=== PATIENT | male | born 1950 | race Hispanic/Latino ===

== ENCOUNTER 2019-01-28 08:29 | Inpatient (IN) | payer MEDICARE, OTHER ==
[2019-01-28 09:22] LABS: #Basophils 0.1 thou/uL (0.0-0.2); #Lymphocytes 2.3 thou/uL (1.20-3.40); #Monocytes 0.7 thou/uL (0.11-0.59); #Neutrophils 6.4 thou/uL (1.40-6.50); %Basophils 0.9 % (0.0-1.0); %Eosinophils 17.7 % (0.0-10.0); %Lymphocytes 19.8 % (21.0-51.0); %Monocytes 6.2 % (0.0-10.0); %Neutrophils 55.5 % (42.0-75.0); Hemoglobin 11.5 g/dL (14.0-18.0); Mean Corpuscular HGB CONC 33.5 g/dL (32.0-36.0); Mean Corpuscular Hemoglobin 29.9 pg (27.0-31.0); Mean Corpuscular Volume 89.1 fL (78.0-98.0); Mean Platelet Volume 6.9 fL (7.4-10.4); Platelet Count 358 thou/uL (130-400); RBC Distribution Width 12.4 % (11.5-14.5); Red Blood Cell (RBC) Count 3.85 mill/uL (4.70-6.10); White Blood Cell (WBC) Count 11.5 thou/uL (4.8-10.8)
[2019-01-28 09:41] LABS: ALT (SGPT) 44 U/L (8-55); AST (SGOT) 30 U/L (5-34); Albumin 3.9 g/dL (3.4-4.8); Alkaline Phosphatase 104 U/L (40-150); Anion Gap 15 mmol/L (10-20); BUN (Urea Nitrogen) 44 mg/dL (8.4-25.7); Bilirubin, Total 0.4 mg/dL (0.2-1.2); Calc. Creatinine Clearance 0 mL/min (70-130); Calcium 9.3 mg/dL (7.8-10.44); Carbon Dioxide 21 mmol/L (23-31); Chloride 108 mmol/L (98-107); Estimated GFR-MDRD 11; Globulin 3.8 g/dL (2.4-3.5); Glucose 148 mg/dL (80-115); Protein, Total 7.7 g/dL (5.8-8.1); Sodium 139 mmol/L (136-145)
--- NOTE | 2019-01-28 10:18 | PDOC.FPRHP ---
- History of Present Illness Chief Complaint: dialysis History of Present Illness: 68 yo M with CKD, HTN, DM2 was sent to ED for HD. Pt and family report that they were seen 1 week ago and instructed to f/u for HD arrangements. They never did and today pt started exeriencing SOB, difficulty walking, lower extremity edema. Pt is still making urine frequently with assistance of lasix. Patient also reports nausea and morning emesis over the last few months. He has been weak and endorses intermittent chest pain, although patient denies pain currently. Patient was seen for routine visit by head worker, Dr. Hernandez and sent over to ED for HD. ED Course: Ssis Architect, Dr. Hernandez was consulted and recommended admitting to proceed with getting set up for HD. - Allergies/Adverse Reactions Allergies Allergy/AdvReac Type Severity Reaction Status Date / Time No Known Drug Allergies Allergy Verified 01/28/19 16:10 - Home Medications Medication Instructions Recorded Confirmed Type Aspirin [Aspir 81] 81 mg PO DAILY 04/07/13 01/28/19 History Amlodipine [Norvasc] 10 mg PO DAILY 01/28/19 01/28/19 History Calcitriol 0.25 mcg PO DAILY 01/28/19 01/28/19 History Carvedilol 1 tab PO BID 01/28/19 01/28/19 History Furosemide 1 tab PO BID 01/28/19 01/28/19 History Insulin Glargine,Hum.Rec.Anlog 25 units SQ BID 01/28/19 01/28/19 History [Lantus] Nitroglycerin [Nitrostat] 0.3 mg SL Q5MIN PRN 01/28/19 01/28/19 History Simvastatin [Zocor] 1 tab PO HS 01/28/19 01/28/19 History Terazosin HCl [Hytrin] 2 mg PO HS 01/28/19 01/28/19 History cloNIDine [Catapres] 0.2 mg PO BID 01/28/19 01/28/19 History - History PMHx: HTN, DM type II PSHx: Cholecystectomy FHx: Mother with stomach cancer Social: Denies alcohol, tobacco, or drug use - Review of Systems General: denies: fever/chills, weight/appetite/sleep changes, night sweats Eyes: denies: vision changes ENT: denies: nasal congestion, rhinorrhea Respiratory: reports: shortness of breath Cardiovascular: reports: edema, orthopnea Gastrointestinal: denies: nausea, vomiting, diarrhea, GI bleeding Genitourinary: denies: incontinence, dysuria Skin: denies: rashes, lesions Musculoskeletal: denies: pain, tenderness Neurological: reports: weakness. denies: numbness, syncope Psychological: denies: anxiety, depression - Vital signs 210/105, Pulse: 72, Resp: 16, Pain: 0, O2 sat: 98 on Room Air, Time: 01/28/2019 08:58. - Physical Exam Constitutional: NAD, awake, alert and oriented HEENT: EOMI, MMM Heart: RRR, no murmurs/rubs/gallops Lungs: CTAB -Lungs: bibasilar rales Abdomen: soft -Abdomen: Mildly tender in RUQ and LUQ. -Musculoskeletal: Shaking on exam Neurological: no focal deficit Skin: good turgor Heme/Lymphatic: no unusual bruising or bleeding, no purpura Psychiatric: normal mood and affect, good judgment and insight, intact recent and remote memory FMR H&P: Results - Labs Result Diagrams: 01/28/19 09:25 01/28/19 09:06 Lab results: WBC 11.5 thou/uL (4.8-10.8) H 01/28/19 09:25 Hgb 11.5 g/dL (14.0-18.0) L 01/28/19 09:25 Hct 34.3 % (42.0-52.0) L 01/28/19 09:25 MCV 89.1 fL (78.0-98.0) 01/28/19 09:25 Plt Count 358 thou/uL (130-400) 01/28/19 09:25 Neutrophils % 55.5 % (42.0-75.0) 01/28/19 09:25 Sodium 139 mmol/L (136-145) 01/28/19 09:06 Potassium 5.0 mmol/L (3.5-5.1) 01/28/19 09:06 Chloride 108 mmol/L (98-107) H 01/28/19 09:06 Carbon Dioxide 21 mmol/L (23-31) L 01/28/19 09:06 BUN 44 mg/dL (8.4-25.7) H 01/28/19 09:06 Creatinine 5.37 mg/dL (0.7-1.3) H 01/28/19 09:06 Glucose 148 mg/dL (80-115) H 01/28/19 09:06 Calcium 9.3 mg/dL (7.8-10.44) 01/28/19 09:06 Total Bilirubin 0.4 mg/dL (0.2-1.2) 01/28/19 09:06 AST 30 U/L (5-34) 01/28/19 09:06 ALT 44 U/L (8-55) 01/28/19 09:06 Alkaline Phosphatase 104 U/L (40-150) 01/28/19 09:06 Serum Total Protein 7.7 g/dL (5.8-8.1) 01/28/19 09:06 Albumin 3.9 g/dL (3.4-4.8) 01/28/19 09:06 FMR H&P: A/P - Problem List (1) Acute kidney injury superimposed on CKD Current Visit: Yes Status: Acute Code(s): N17.9 - ACUTE KIDNEY FAILURE, UNSPECIFIED; N18.9 - CHRONIC KIDNEY DISEASE, UNSPECIFIED (2) ESRD (end stage renal disease) Current Visit: Yes Status: Acute Code(s): N18.6 - END STAGE RENAL DISEASE - Plan 68 year old male presents with ESRD, here to initiate HD 1. ESRD, here to initiate HD - GFR 11 - Sent over from Dr. Hernandez's office - Dr. Horton consulted for dialysis access - Lasix for fluid overload pending dialysis - Plan for dialysis once there is access - K 5, continue to monitor - Daily BMP's - Electrolytes WNL - Phos and Mg pending - Daily weights - Strict I&O's 2. HTN - Elevated BP - Will likely improve with HD - Restart home medications 3. DM type II - Continue home meds - Hyperglycemia protocol 4. Mild leukocytosis - WBC 11.5 - Procal negative Dispo: Admit to telemetry. Obtain access for dialysis and diurese. FMR H&P: Upper Level - Plan Date/Time: 01/28/19 1016 I, [], have evaluated this patient and agree with findings/plan as outlined by phd intern resident. Pertinent changes/additions are listed here. Addendum - Attending - Attending Attestation Date/Time: 01/28/192010 I personally evaluated the patient and discussed the management with Dr. Giles I agree with the History, Examination, Assessment and Plan documented above with any addition or exceptions noted below. 68 yo HTN Diabetic male with ESRD admitted for initiation of hemodialysis and BP control.
[2019-01-28] MEDS ORDERED: Dextrose 5% in Water 1,000 ML IV PRN (15:31)
[2019-01-28] MEDS ORDERED: Dextrose 50% Abboject 50 ML SYRINGE SLOW IVP PRN (15:31)
[2019-01-28] MEDS ORDERED: HumaLOG 300 UNITS/3 ML VIAL SC PRN ×2 (15:31)
[2019-01-28] MEDS ORDERED: Ondansetron ODT 4 MG TAB PO PRN (15:31)
[2019-01-28] MEDS ORDERED: Furosemide 40 MG/4 ML VIAL SLOW IVP SCH (15:45)
[2019-01-28 15:52] LABS: Magnesium 2.1 mg/dL (1.6-2.6); Phosphorus 5.2 mg/dL (2.3-4.7)
[2019-01-28 16:04] VITALS: BMI 26.3
[2019-01-28] MEDS ORDERED: Nitroglycerin 0.4 MG TAB (25 Tab Bottle) SL PRN (16:39)
[2019-01-28] MEDS ORDERED: Amlodipine 10 MG TAB PO SCH (16:45)
[2019-01-28] MEDS ORDERED: Tuberculin PPD 0.1 ML VIAL I-DERMAL SCH (17:00)
[2019-01-28] MEDS: cloNIDine 0.2 MG TAB PO SCH (17:55)
[2019-01-28] MEDS ORDERED: hydrALAZINE 20 MG/ML VIAL SLOW IVP PRN (18:04)
--- NOTE | 2019-01-28 19:18 | ULT ---
VEIN MAPPING OF UPPER EXTREMITIES FOR DIALYSIS ACCESS: Indication: Pre-operative planning evaluation. FINDINGS: The visualized internal jugular and subclavian veins appear patent. RIGHT UPPER EXTREMITY BRACHIAL ARTERY: 5.4 mm RADIAL ARTERY: 2.2 mm ULNAR ARTERY: 1.9 mm CEPHALIC VEIN Proximal Arm: 4.2 mm Mid Arm: 2.9 mm Distal Arm: 3.1 mm Antecubital Fossa: 3.2 mm Proximal Forearm: 1.9 mm Mid Forearm: 1.2 mm Distal Forearm: 1.1 mm BASILIC VEIN Proximal Arm: Not seen Mid Arm: 3.2 mm Distal Arm: 2.3 mm Antecubital Fossa: 2.7 mm Proximal Forearm: 1.3 mm Mid Forearm: 1.1 mm Distal Forearm: 0.9 mm LEFT UPPER EXTREMITY BRACHIAL ARTERY: 4.3 mm RADIAL ARTERY: 1.1 mm ULNAR ARTERY: 2.4 mm CEPHALIC VEIN Proximal Arm: 2.3 mm Mid Arm: 1.9 mm Distal Arm: 1.9 mm Antecubital Fossa: 2.5 mm Proximal Forearm: 1.1 mm Mid Forearm: 1.4 mm Distal Forearm: 1.3 mm BASILIC VEIN Proximal Arm: 1.8 mm Mid Arm: 2.4 mm Distal Arm: 1.4 mm Antecubital Fossa: 1.8 mm Proximal Forearm: 0.8 mm Mid Forearm: 0.7 mm Distal Forearm: 0.6 mm IMPRESSION: Pre dialysis access planning duplex exam as above. POS: IMANI
[2019-01-28 19:26] LABS: HBSAB Concentration 1.83 mIU/mL; HBSAg Index 0.29 S/CO (0-0.99); Hep B Core Total Ab Non-Reactive (NonReactive); Hep B Core Total Index 0.06 S/CO (0-0.79); Hep B Surf AB Non-Reactive (NonReactive); Hep B Surf Ag Non-Reactive S/CO (NonReactive); Hep C IgG Ab Non-Reactive (NonReactive); Hep C Index 0.55 S/CO (0-0.79)
[2019-01-28] MEDS: Losartan 25 MG TAB PO SCH (20:29)
[2019-01-28] MEDS: Carvedilol 6.25 MG TAB PO SCH (20:29)
[2019-01-28] MEDS: Furosemide 40 MG TAB PO SCH (20:29)
[2019-01-28] MEDS: Atorvastatin Calcium 10 MG TAB PO SCH (20:30)
[2019-01-28] MEDS ORDERED: Insulin Glargine 25 UNITS in Pre-Filled Syringe 1 EACH SC SCH (21:00)
[2019-01-28] MEDS: Terazosin HCl 1 MG CAP PO SCH (21:18)
--- NOTE | 2019-01-28 23:52 | CON ---
DATE OF CONSULTATION: HISTORY OF PRESENT ILLNESS: Mr. Colon is a 68-year-old male, who was admitted for initiation of hemodialysis. He has been progressively had worsening renal function as well as development of early uremia. He was seen in the clinic back on January 21, 2019, I did tell him at that time, his GFR has dropped down to a mL per minute. He has agreed to be admitted for initiation of dialysis. REVIEW OF SYSTEMS: No chest pain. Decreased appetite, occasional nausea. No vomiting. No tremors. No syncopal episode. No productive cough. No abdominal pain. No fever or chills. Occasional shortness of breath. Positive for chronic leg edema. No diarrhea, no constipation. No gross hematuria, no dysuria. No hematochezia, no melena. HOME MEDICATIONS: Includes: 1. Calcitriol 0.25 mcg daily. 2. Lasix 40 mg tablet once daily. 3. Insulin 25 units subcu b.i.d. 4. Prozac 20 mg at bedtime. 5. Aspirin 81 mg daily. 6. Terazosin 1 mg two capsules at bedtime. 7. Clonidine 0.2 mg two tablets b.i.d. 8. Coreg 12.5 mg b.i.d. 9. Amlodipine 10 mg tablet once daily. PAST MEDICAL HISTORY: 1. Chronic renal failure from diabetic nephropathy. 2. Type 2 diabetes mellitus. 3. Hypertension. 4. Secondary hyperparathyroidism. 5. Depression. 6. ? Chronic leg edema. PAST SURGICAL HISTORY: 1. Status post laparoscopic cholecystectomy. Status post cholangiogram. 2. Status post upper GI endoscopy. SOCIAL HISTORY: The patient lives in [place], originally from [place]. He has 5 children. No history of smoking, no alcohol intake. Education, 3rd grade in [place]. No IV drug abuse. He is a retired construction administrator. No blood transfusion. ALLERGIES: NONE. TRAUMA: None. IMMUNIZATION: Up-to-date. HOSPITALIZATIONS: Please see past medical history. FAMILY HISTORY: No family history of ESRD. PHYSICAL EXAMINATION: VITAL SIGNS: Blood pressure is 207/100, heart rate 74, respiratory rate 18, temperature 98.1, and pulse ox 98 percent. GENERAL: Awake, alert, comfortable, not in overt distress. SKIN: Adequate turgor. HEENT: He has pinkish conjunctivae. Anicteric sclerae. NECK: No neck mass. No carotid bruits. No JVD. CHEST: No deformities. LUNGS: Clear breath sounds. No wheezing. No crackles. HEART: Normal sinus rhythm. No murmur, no gallops, no rubs. ABDOMEN: Globular, soft, nontender. No masses. EXTREMITIES: Positive for edema. No deformities. NEUROLOGICAL: Awake, oriented to 3 spheres. Moving all extremities. No tremors. No asterixis. No ataxia. LABORATORY DATA: From January 28, 2019; white count 11.5, hemoglobin 11.5. Sodium 139, potassium 5, chloride 108, carbon dioxide 21, BUN 44, creatinine 5.37, glucose 140, calcium 9.3, phosphorus 5.2, albumin 3.9. Procalcitonin 0.1. ASSESSMENT AND PLAN: 1. Chronic renal failure from diabetic nephropathy. Renal function has worsen over time. Most recent glomerular filtration rate is at 11 mL/minute. The patient agreed for initiation of dialysis. My plan is to consult surgery for placement of a cuffed hemodialysis catheter as well as an arteriovenous fistula. The patient has declined peritoneal dialysis. We had in the past a long discussion of renal transplantation. At the moment, they are not interested due to logistics. 2. Hypertension-review of the blood pressure medications has been made. My bias due to his hard to control blood pressure is to initiate losartan with this patient at 50 mg tablet daily at bedtime. 3. I agree with current management. Consult surgery for placement of dialysis catheter. Case management consult for outpatient dialysis. Job ID: [id number]
[2019-01-29 05:01] LABS: #Basophils 0.1 thou/uL (0.0-0.2); #Eosinphils 1.8 thou/uL (0.0-0.7); #Lymphocytes 1.9 thou/uL (1.20-3.40); #Monocytes 0.6 thou/uL (0.11-0.59); #Neutrophils 3.9 thou/uL (1.40-6.50); %Basophils 0.8 % (0.0-1.0); %Eosinophils 21.6 % (0.0-10.0); %Lymphocytes 23.2 % (21.0-51.0); %Monocytes 7.3 % (0.0-10.0); %Neutrophils 47.1 % (42.0-75.0); Hemoglobin 9.7 g/dL (14.0-18.0); Mean Corpuscular HGB CONC 33.6 g/dL (32.0-36.0); Mean Corpuscular Hemoglobin 29.8 pg (27.0-31.0); Mean Corpuscular Volume 88.7 fL (78.0-98.0); Mean Platelet Volume 6.9 fL (7.4-10.4); Platelet Count 298 thou/uL (130-400); RBC Distribution Width 12.3 % (11.5-14.5); Red Blood Cell (RBC) Count 3.24 mill/uL (4.70-6.10); White Blood Cell (WBC) Count 8.3 thou/uL (4.8-10.8)
--- NOTE | 2019-01-29 05:10 | PDOC.FM ---
- Subjective Subjective: Patient states he is doing ok this AM. No significant overnight events. Patient eating peanut butter and crackers due to BG in the 50's. He denies any chest pain or shortness of breath. He states he has not gone for dialysis yet. - Objective MAR Reviewed: Yes Vital Signs & Weight: Vital Signs (12 hours) Temp Pulse Resp BP BP Pulse Ox 01/29/19 04:00 98.4 F 57 L 18 142/82 H 94 L 01/28/19 20:29 188/91 H 01/28/19 19:35 98.9 F 77 16 188/91 H 95 01/28/19 17:51 70 181/82 H Weight Weight 71.849 kg I&O: 01/27/19 01/28/19 01/29/19 06:59 06:59 06:59 Intake Total 240 Output Total 400 Balance -160 Result Diagrams: 01/29/19 04:48 01/29/19 04:48 EKG Reviewed by me: Yes Radiology Reviewed by me: Yes Phys Exam - Physical Examination Constitutional: NAD HEENT: moist MMs Course breath sounds anteriorly Cardiovascular: RRR, no significant murmur Gastrointestinal: soft, non-tender, no distention, positive bowel sounds ( Hyperactive) Musculoskeletal: pulses present 3+ pitting edema Neurological: non-focal, moves all 4 limbs Psychiatric: normal affect, A&O x 3 Skin: no rash, cap refill <2 seconds Dx/Plan (1) Acute kidney injury superimposed on CKD Code(s): N17.9 - ACUTE KIDNEY FAILURE, UNSPECIFIED; N18.9 - CHRONIC KIDNEY DISEASE, UNSPECIFIED Status: Acute (2) ESRD (end stage renal disease) Code(s): N18.6 - END STAGE RENAL DISEASE Status: Acute (3) HTN (hypertension) Code(s): I10 - ESSENTIAL (PRIMARY) HYPERTENSION Status: Acute (4) Diabetes mellitus, type II Status: Acute - Plan Plan: 68 year old male presents with ESRD, here to initiate HD 1. ESRD 2/2 diabetic nephropathy, here to initiate HD - GFR 11 - Sent over from Dr. Hernandez's office - Dr. Horton consulted for dialysis access - Lasix for fluid overload pending dialysis - Plan for dialysis once there is access - Electrolytes WNL - Daily BMP's - Phos high at 5.2, Mg WNL - Daily weights - Strict I&O's; output 1.2 L - Hepatitis panel negative 2. HTN - Elevated BP - Will likely improve with HD - Continue home medications - Hydralazine PRN SBP >180 3. DM type II - Continue home meds - Hyperglycemia protocol - Episode of hypoglycemia this AM; improved with peanut butter and crackers 4. Mild leukocytosis - WBC 11.5 - Procal negative - CBC improved this AM 5. Normocytic anemia - 11 -> 9.7 - Likely 2/2 ESRD - May need erythropoetin; will defer to nephro - Continue to monitor Dispo: Stable. Pending access for dialysis. Addendum - Attending - Attending Attestation Date/Time: 01/29/19 1003 I personally evaluated the patient and discussed the management with Dr. Giles I agree with the History, Examination, Assessment and Plan documented above with any addition or exceptions noted below. Patient up at bedside anticipating access surgery today NPO status note hypogylcemia episode will need basal insulin dose adjustments.
[2019-01-29 05:13] LABS: Anion Gap 12 mmol/L (10-20); BUN (Urea Nitrogen) 46 mg/dL (8.4-25.7); Calc. Creatinine Clearance 14 mL/min (70-130); Calcium 8.6 mg/dL (7.8-10.44); Carbon Dioxide 23 mmol/L (23-31); Chloride 108 mmol/L (98-107); Estimated GFR-MDRD 11; Potassium 4.2 mmol/L (3.5-5.1); Sodium 139 mmol/L (136-145)
[2019-01-29 05:18] LABS: Glucose 59 mg/dL (80-115)
[2019-01-29] MEDS: Aspirin 81 mg Enteric Coated Tablet PO SCH (09:57)
[2019-01-29] MEDS: Calcitriol 0.25 MCG CAP PO SCH (09:57)
[2019-01-29] MEDS: Carvedilol 6.25 MG TAB PO SCH ×2 (09:57→19:59)
[2019-01-29] MEDS: Amlodipine 10 MG TAB PO SCH (09:57)
[2019-01-29] MEDS: cloNIDine 0.2 MG TAB PO SCH ×2 (09:57→19:59)
[2019-01-29] MEDS: Furosemide 40 MG TAB PO SCH ×2 (09:57→19:59)
[2019-01-29] MEDS: Insulin Glargine 18 UNITS in Pre-Filled Syringe 1 EACH SC SCH ×2 (10:00→20:00)
--- NOTE | 2019-01-29 10:12 | PRG ---
DATE OF SERVICE: 01/29/2019 SUBJECTIVE: Mr. Colon is a 68-year-old male, who was admitted for initiation of dialysis due to progressive azotemia as well as uremic signs and symptoms. The patient this morning has no new complaints. Appetite is fair. He denies any vomiting, but he sometimes has no issues. Denies any chest pain or shortness of breath. OBJECTIVE: VITAL SIGNS: Blood pressure 162/81, heart rate 62, respiratory rate 18, temperature 97.5. GENERAL: Awake, alert, comfortable, not in distress. SKIN: Adequate turgor. HEENT: He has pinkish conjunctivae. Anicteric sclerae. NECK: No neck mass. No carotid bruits. No JVD. CHEST: No deformities. LUNGS: Decreased breath sounds. HEART: Normal sinus rhythm. No murmur. No gallops. No rubs. ABDOMEN: Globular, soft, nontender. No masses. EXTREMITIES: He does have +1 bilateral pitting edema. MEDICATIONS: Medications of January 29, 2019, were reviewed. LABORATORY DATA: Laboratories of January 29, 2019, sodium 139, potassium 4.2, chloride 108 carbon dioxide 23, BUN 46, creatinine 5.32, calcium 8.6. White count 8.3, hemoglobin 9.7. Serologies, hepatitis B and C negative. ASSESSMENT AND PLAN: 1. Chronic renal failure-progressive azotemia with early uremic signs and symptoms. We will initiate dialysis once the dialysis access is placed. He had a marking ultrasound already done. Surgery is aware. 2. Hypertension-improved. Continue current BP medications. 3. Volume overload/mild congestive heart failure-currently on Lasix 40 mg p.o. b.i.d. 4. Chronic leg edema-slightly improved. 5. Overall agree with current management, recheck. Job ID: [id number]
[2019-01-29] MEDS ORDERED: traMADol HCl 50 MG TAB PO PRN (11:24)
--- NOTE | 2019-01-29 12:01 | HP ---
HISTORY OF PRESENT ILLNESS: Ponce Hoskins is a 68-year-old male patient, presents to the hospital yesterday in need of dialysis access. He has been seen by Dr. Hernandez. He had an IV in his right antecubital area in the emergency room, which when I spoke to them, asked him to remove it immediately. He has an IV in his hand. Ultrasound vein mapping performed 01/28/2019, reveals excellent caliber cephalic vein, right smaller caliber, left basilic vein not seen proximally, right 3.2 and 2.3, antecubital 2.7 mm right, on the left 1.8, 2.4, 1.4, 1.8 mm. The patient has worked construction in the past. Plan is for a right arm fistula. Also, plan placement of hemodialysis catheter possible central line. He understands risks and benefits, consents. ALLERGIES: NONE. TOBACCO, NONE. ALCOHOL, NONE. MEDICATIONS: At home: 1. Carvedilol b.i.d. 2. Clonidine 0.2 mg b.i.d. 3. Zocor at bedtime. 4. Nitroglycerin p.r.n. 5. Furosemide b.i.d. 6. Hytrin 2 mg at bedtime. 7. Calcitriol 0.25 mcg daily. 8. Aspirin 81 mg a day. 9. Amlodipine 10 mg a day. 10. Insulin 25 units b.i.d. PAST SURGICAL HISTORY: Laparoscopic cholecystectomy. Colonoscopy 2 years ago. He had ERCP on 04/06/2013, for sphincterotomy, noting absence of any choledocholithiasis. On 04/06/2013, I performed laparoscopic cholecystectomy after normal ERCP prior. PAST MEDICAL HISTORY: Diabetes mellitus and hypertension. REVIEW OF SYSTEMS: Ten-point noncontributory. PHYSICAL EXAMINATION: VITAL SIGNS: Height 5 feet 5 inches, 157 pounds, 26 BMI. Temperature 97.5, pulse 62, and blood pressure 179/91. HEAD, EARS, EYES, NOSE, AND THROAT: Unremarkable. LUNGS: Clear to auscultation. CARDIAC: Regular rate and rhythm without murmur or gallop. ABDOMEN: Soft and nontender. EXTREMITIES: Unremarkable. ASSESSMENT AND PLAN: End-stage renal disease. PLAN: Placement of a hemodialysis catheter possible central line and a right arm fistula. He understands the risks and benefits of procedure and consents. LABORATORY DATA: White count 8, hemoglobin 9.7. BUN 46, creatinine 5.32, GFR 11, and potassium 4.2. Job ID: [id number]
[2019-01-29] MEDS ORDERED: ePHEDrine 50 MG/ML VIAL ONE (14:12)
[2019-01-29] MEDS ORDERED: Lidocaine 1% PF 5 ML VIAL ONE (14:12)
[2019-01-29] MEDS ORDERED: Ondansetron PF 4 MG/2 ML Vial ONE (14:12)
[2019-01-29] MEDS ORDERED: Heparin 10,000 UNITS/ 10 ML VIAL ONE (14:12)
[2019-01-29] MEDS ORDERED: PROPOFOL 200 MG/20 ML VIAL ONE (14:12)
[2019-01-29] MEDS ORDERED: Dexamethasone 20 MG/5 ML VIAL ONE (14:12)
[2019-01-29] MEDS ORDERED: Heparin 5,000 UNITS/ML VIAL ONE (15:43)
[2019-01-29] MEDS ORDERED: Protamine Sulfate 50 MG/5 ML VIAL ONE (15:43)
[2019-01-29] MEDS ORDERED: Lidocaine 2% PF 5 ML VIAL ONE (15:43)
[2019-01-29] MEDS ORDERED: Sodium Chloride 0.9% 30 ML ONE (15:43)
[2019-01-29] MEDS ORDERED: Bupivacaine HCl 0.5%/Epinephrine 1:200,000/PF 30 ml Vial ONE (15:43)
[2019-01-29] MEDS ORDERED: Heparin 10,000 UNITS/1 ML VIAL ONE (15:43)
[2019-01-29] MEDS ORDERED: Fentanyl 100 MCG/2 ML VIAL ONE ×2 (15:51→17:50)
--- NOTE | 2019-01-29 18:55 | RAD ---
CHEST ONE VIEW: 01/29/19 INDICATION: History of central line placement. FINDINGS: There is a right IJ dialysis catheter which projects in the region of the SVC. There is moderate card iomegaly which is stable. Lungs are clear. No pleural effusions or pneumothorax is evident. IMPRESSION: 1. Right IJ dialysis catheter without evidence of pneumothorax. 2. Stable cardiomegaly. POS: BH
[2019-01-29] MEDS: Losartan 25 MG TAB PO SCH (19:58)
[2019-01-29] MEDS: Terazosin HCl 1 MG CAP PO SCH (19:59)
[2019-01-29] MEDS: Atorvastatin Calcium 10 MG TAB PO SCH (19:59)
[2019-01-29] MEDS: Acetaminophen 500 MG TAB PO PRN (20:00)
--- NOTE | 2019-01-29 23:53 | OP ---
DATE OF PROCEDURE: 01/29/2019 PREOPERATIVE DIAGNOSIS: End-stage renal disease. POSTOPERATIVE DIAGNOSIS: End-stage renal disease. PROCEDURE PERFORMED: Right internal jugular cuffed tunneled hemodialysis catheter, ultrasound and fluoroscopy use. Right Jarocho fistula, 4 mm coronary dilator, cephalic vein. Good Doppler signal throughout the forearm course of the cephalic vein. ANESTHESIA: General, local of 0.5% Marcaine with epinephrine 20 mL. DESCRIPTION OF PROCEDURE: The patient was taken to the operating room where under general anesthesia, neck and chest and right upper extremity clipped of hair, prepared with ChloraPrep and draped in routine fashion. Local anesthetic was infiltrated in the skin and subcutaneous tissue about the operative sites. Using ultrasound guidance, the right internal jugular vein was cannulated with a trocar catheter and J-wire threaded. Trocar catheter was removed. Skin site was enlarged sharply. Stab incision was made over the right chest. Using a tunneling device, the pre-curved [employer] cuffed-tunneled hemodialysis catheter was tunneled between the 2 incisions, placed the fabric cuff beneath the skin exit site. Catheter was secured with 2 interrupted sutures of 3-0 nylon. Biopatch and sterile dressings applied. The small and medium sized dilators were placed over the J-wire and into the internal jugular vein and removed. Dilator and Peel-Away sheath were placed with J-wire in superior vena cava and dilator and J-wire were removed. Catheter was placed with the Peel-Away sheath. The Peel-Away sheath was removed. Platysma was approximated with 4-0 Monocryl, skin with subdermal 4-0 Monocryl and [place] glue applied. Fluoroscopic images revealed good line placement. Each port was aspirated of blood, flushed with saline solution and heparinized saline solution with 1000 units of heparin per mL indicating the volume of the port. Incision was made between the radial artery and cephalic vein at the right wrist longitudinally, carried down to the skin and subcutaneous tissue and the cephalic vein was noted to be a good caliber. It was dissected free, ligated on the hand side with 3-0 silk, dividing the branch between 4-0 silk ties and clips. Vein interrogated with coronary dilators, passing the coronary dilators from a 2-mm to a 4-mm coronary dilator without obstruction. It was flushed with heparinized saline solution. The patient was given 6000 units of heparin intravenously. After adequate circulation time, the radial artery, which had been dissected free, was clamped proximally and distally with vascular clamps. Longitudinal arteriotomy was made sharply and elongated with Mckenzie scissors where a 2.5-cm anastomosis created between the side cephalic vein, appropriately spatulated to the side radial artery with continuous suture of 6-0 Prolene, completing the anastomosis and releasing vascular clamps, noting good flow in the fistula with good Doppler signal throughout the course of the forearm. Hemostasis was gained with 6-0 Prolene. The patient was given 25 mg of protamine intravenously. Subcutaneous tissues were approximated with 3-0 Monocryl, skin with subdermal 4-0 Monocryl and [place] glue applied. Job ID: [id number]
--- NOTE | 2019-01-30 06:01 | PDOC.FM ---
- Subjective Subjective: Patient doing well this AM. No significant overnight events. Patient started dialysis today. He denies chest pain or shortness of breath. - Objective MAR Reviewed: Yes Vital Signs & Weight: Vital Signs (12 hours) Temp Pulse Resp BP Pulse Ox 01/30/19 02:54 98.1 F 68 16 148/79 H 94 L 01/29/19 18:50 97.6 F 68 16 182/88 H 93 L 01/29/19 18:40 97.8 F 70 18 193/93 H 98 Weight Weight 71.441 kg I&O: 01/28/19 01/29/19 01/30/19 06:59 06:59 06:59 Intake Total 720 Output Total 1225 Balance -505 Result Diagrams: 01/29/19 04:48 01/30/19 05:45 EKG Reviewed by me: Yes Radiology Reviewed by me: Yes Phys Exam - Physical Examination Constitutional: NAD HEENT: moist MMs Respiratory: clear to auscultation bilateral Cardiovascular: RRR Gastrointestinal: soft Musculoskeletal: pulses present, edema present Neurological: non-focal, moves all 4 limbs Psychiatric: normal affect, A&O x 3 Skin: cap refill <2 seconds Deviation from normal: New fistula site on right arm Dx/Plan (1) Acute kidney injury superimposed on CKD Code(s): N17.9 - ACUTE KIDNEY FAILURE, UNSPECIFIED; N18.9 - CHRONIC KIDNEY DISEASE, UNSPECIFIED Status: Acute (2) ESRD (end stage renal disease) Code(s): N18.6 - END STAGE RENAL DISEASE Status: Acute (3) HTN (hypertension) Code(s): I10 - ESSENTIAL (PRIMARY) HYPERTENSION Status: Acute (4) Diabetes mellitus, type II Status: Acute - Plan Plan: 68 year old male presents with ESRD, here to initiate HD 1. ESRD 2/2 diabetic nephropathy, here to initiate HD - GFR 11 - Sent over from Dr. Hernandez's office - s/p fistula and temporary cath for dialysis - Dialysis over next 3-4 days daily per nephro - Daily BMP's - Phos high at 5.2, Mg WNL - Daily weights - Strict I&O's; output 1.2 L - Hepatitis panel negative 2. HTN - Will likely improve with HD - Continue home medications - Hydralazine PRN SBP >180 3. DM type II - Continue home meds - Hyperglycemia protocol - Patient refusing insulin 4. Mild leukocytosis, resolved - WBC 11.5 - Procal negative 5. Normocytic anemia - 11 -> 9.7 - Likely 2/2 ESRD - May need erythropoetin; will defer to nephro - Continue to monitor Dispo: Stable. Continue dialysis over next 3-[address] Hernandez. Addendum - Attending - Attending Attestation Date/Time: 01/30/19 0443 I personally evaluated the patient and discussed the management with Dr. Esposito I agree with the History, Examination, Assessment and Plan documented above with any addition or exceptions noted below.
[2019-01-30 06:27] LABS: Anion Gap 16 mmol/L (10-20); BUN (Urea Nitrogen) 51 mg/dL (8.4-25.7); Calc. Creatinine Clearance 12 mL/min (70-130); Calcium 8.6 mg/dL (7.8-10.44); Carbon Dioxide 17 mmol/L (23-31); Chloride 106 mmol/L (98-107); Estimated GFR-MDRD 10; Glucose 186 mg/dL (80-115); Potassium 5.2 mmol/L (3.5-5.1); Sodium 134 mmol/L (136-145)
[2019-01-30] MEDS: Amlodipine 10 MG TAB PO SCH ×2 (08:50→10:07)
[2019-01-30] MEDS: Carvedilol 6.25 MG TAB PO SCH ×3 (08:50→19:30)
[2019-01-30] MEDS: Insulin Glargine 18 UNITS in Pre-Filled Syringe 1 EACH SC SCH ×2 (08:51→20:24)
[2019-01-30] MEDS: cloNIDine 0.2 MG TAB PO SCH ×3 (08:51→19:29)
[2019-01-30] MEDS: Furosemide 40 MG TAB PO SCH ×3 (08:51→19:30)
--- NOTE | 2019-01-30 09:03 | PRG ---
DATE OF SERVICE: 01/30/2019 SUBJECTIVE: Mr. Colon is a 68-year-old male with chronic renal failure from diabetic nephropathy admitted for initiation of dialysis. He is currently undergoing hemodialysis. I am at the bedside supervising his dialysis. He had a right IJ tunneled dialysis catheter and an AV fistula placed yesterday. He is doing well. He voices no new complaints. OBJECTIVE: VITAL SIGNS: Blood pressure is 151/84, heart rate 72, respiratory rate 16, temperature 98.8, and pulse ox 96%. GENERAL: Noted to be awake, alert, comfortable, not in overt distress. SKIN: Adequate turgor. HEENT: He has slightly pale conjunctivae. Anicteric sclerae. NECK: No neck mass. No carotid bruits. No JVD. CHEST: No deformities. LUNGS: Clear breath sounds. HEART: Normal sinus rhythm. No murmurs, no gallops, no rubs. ABDOMEN: Globular, soft, nontender. No masses. EXTREMITIES: Positive for edema. MEDICATIONS: Medications of January 30, 2019, were reviewed. LABORATORY DATA: Laboratories of January 29, 2019, white count 8.2, hemoglobin 9.7. January 30, 2019, sodium 134, potassium 5.2, chloride 106, carbon dioxide 17, BUN 51, creatinine 5.94, glucose 186, calcium 8.6. ASSESSMENT AND PLAN: 1. Chronic renal failure from diabetic nephropathy-due to progressive azotemia and uremic signs and symptoms. The patient was initiated on dialysis. The plan is to do daily dialysis for the next 3 to 4 days. Fluid removal only as tolerated. Since the patient has been initiated on dialysis, we will discontinue his furosemide. 2. Generalized edema/leg edema-most likely related to underlying renal problem. Max out fluid removal with dialysis. 3. Agree with current management. Job ID: [id number]
[2019-01-30] MEDS: Calcitriol 0.25 MCG CAP PO SCH (10:06)
[2019-01-30] MEDS: Aspirin 81 mg Enteric Coated Tablet PO SCH (10:06)
--- NOTE | 2019-01-30 10:33 | PRG ---
DATE OF SERVICE: 01/30/2019 Ponce Hoskins is doing well today after placement of hemodialysis catheter and a right Jarocho fistula yesterday. He has a good thrill and bruit in his right Jarocho fistula. He has a small hematoma. No intervention is necessary. At this point, he should exercise the right arm and use it without restrictions. He will follow up with me in the office in 3 to 4 weeks. They will call sooner if there are any problems. I will see him as needed in this hospitalization. Please call if necessary. Job ID: [id number]
[2019-01-30] MEDS ORDERED: Heparin 10,000 UNITS/ 10 ML VIAL ONE (11:00)
[2019-01-30] MEDS: Atorvastatin Calcium 10 MG TAB PO SCH (19:29)
[2019-01-30] MEDS: Terazosin HCl 1 MG CAP PO SCH (19:29)
[2019-01-30] MEDS: Losartan 25 MG TAB PO SCH (19:30)
[2019-01-30] MEDS: Acetaminophen 500 MG TAB PO PRN (19:35)
[2019-01-31 06:30] LABS: #Eosinphils 0.6 thou/uL (0.0-0.7); #Lymphocytes 2.7 thou/uL (1.20-3.40); #Monocytes 0.9 thou/uL (0.11-0.59); #Neutrophils 8.1 thou/uL (1.40-6.50); %Basophils 0.3 % (0.0-1.0); %Lymphocytes 21.6 % (21.0-51.0); %Monocytes 7.5 % (0.0-10.0); %Neutrophils 65.6 % (42.0-75.0); Hemoglobin 9.4 g/dL (14.0-18.0); Mean Corpuscular HGB CONC 33.3 g/dL (32.0-36.0); Mean Corpuscular Hemoglobin 29.8 pg (27.0-31.0); Mean Corpuscular Volume 89.4 fL (78.0-98.0); Mean Platelet Volume 7.3 fL (7.4-10.4); Platelet Count 278 thou/uL (130-400); RBC Distribution Width 12.4 % (11.5-14.5); Red Blood Cell (RBC) Count 3.17 mill/uL (4.70-6.10); White Blood Cell (WBC) Count 12.3 thou/uL (4.8-10.8)
[2019-01-31] MEDS: READ PPD TEST SITE TOP SCH (06:46)
[2019-01-31 06:53] LABS: Anion Gap 12 mmol/L (10-20); BUN (Urea Nitrogen) 56 mg/dL (8.4-25.7); Calc. Creatinine Clearance 12 mL/min (70-130); Calcium 8.4 mg/dL (7.8-10.44); Carbon Dioxide 24 mmol/L (23-31); Chloride 102 mmol/L (98-107); Estimated GFR-MDRD 10; Glucose 175 mg/dL (80-115); Potassium 4.4 mmol/L (3.5-5.1); Sodium 134 mmol/L (136-145)
[2019-01-31] MEDS ORDERED: Epoetin (ESRD) 20,000 UNITS/ML SC SCH (08:30)
--- NOTE | 2019-01-31 08:56 | PRG ---
DATE OF SERVICE: 01/31/2019 SUBJECTIVE: Mr. Isaiah Hoskins is a 68-year-old male, who was admitted for initiation of dialysis due to progressive azotemia and uremic signs and symptoms. He underwent 1-hour hemodialysis yesterday. The plan is for him to undergo 2 hour hemodialysis. Fluid will be removed as tolerated. He also had an AV fistula and cuffed dialysis catheter placement. No other complaints. Denies any chest pain or shortness of breath. OBJECTIVE: VITAL SIGNS: Blood pressure 142/80, heart rate 58, respiratory rate 20, temperature 98.9, and pulse oximetry 98%. GENERAL: Noted to be awake, alert, comfortable, sitting, not in distress. SKIN: Adequate turgor. HEENT: He has slightly pale conjunctivae. Anicteric sclerae. No neck mass. No carotid bruits. No JVD. CHEST: No deformities. LUNGS: Clear breath sounds. HEART: Normal sinus rhythm. No murmurs, gallops, or rubs. ABDOMEN: Globular, soft, nontender. No masses. EXTREMITIES: Trace edema. MEDICATIONS: Of January 31, 2019 - Reviewed. LABORATORY DATA: Of January 31, 2019, white count 12.3, hemoglobin 9.4 sodium 134 , potassium 4.4, chloride 102, carbon dioxide 24, BUN 56, creatinine is 5.94, glucose 175, and calcium 8.4. ASSESSMENT AND PLAN: 1. Chronic renal failure from diabetic nephropathy - we will do a 2-hour hemodialysis today with fluid removal. Minimal heparin to no heparin use today. 2. Mild hyperkalemia resolved with dialysis. 3. Anemia, start Epogen 7500 units subcutaneous every week. At the same time, we will continue with the current ferrous sulfate with the patient. 4. Overall agree with current management. Job ID: [id number] MTDD
[2019-01-31] MEDS: Calcitriol 0.25 MCG CAP PO SCH (10:00)
[2019-01-31] MEDS: Aspirin 81 mg Enteric Coated Tablet PO SCH (10:01)
[2019-01-31] MEDS: Insulin Glargine 18 UNITS in Pre-Filled Syringe 1 EACH SC SCH (10:02)
[2019-01-31] MEDS: Carvedilol 6.25 MG TAB PO SCH ×3 (10:03→20:50)
[2019-01-31] MEDS: Amlodipine 10 MG TAB PO SCH ×2 (10:03→12:38)
[2019-01-31] MEDS: cloNIDine 0.2 MG TAB PO SCH ×3 (10:03→20:50)
[2019-01-31] MEDS ORDERED: Heparin 10,000 UNITS/ 10 ML VIAL ONE (11:11)
[2019-01-31] MEDS ORDERED: EPOETIN ALFA-EPBX (ESRD) 10,000 UNIT/ML VIAL SC SCH (12:00)
--- NOTE | 2019-01-31 12:23 | PDOC.FM ---
- Subjective Subjective: Patient doing well. No significant overnight events. He is continuing with dialysis. Denies N/V, chest pain, or shortness of breath. - Objective MAR Reviewed: Yes Vital Signs & Weight: Vital Signs (12 hours) Temp Pulse Resp BP BP Pulse Ox 01/31/19 10:03 58 L 161/86 H 01/31/19 08:40 95 01/31/19 07:40 98.9 F 58 L 20 142/80 H 98 01/31/19 04:00 98.2 F 62 17 145/73 H 96 Weight Weight 71.809 kg I&O: 01/30/19 01/31/19 02/01/19 06:59 06:59 06:59 Intake Total 480 600 Output Total 350 1025 Balance 130 -425 Result Diagrams: 01/31/19 06:05 01/31/19 06:05 EKG Reviewed by me: Yes Radiology Reviewed by me: Yes Phys Exam - Physical Examination Constitutional: NAD HEENT: moist MMs, sclera anicteric Respiratory: clear to auscultation bilateral Cardiovascular: RRR, no significant murmur Gastrointestinal: soft, non-tender, no distention, positive bowel sounds Musculoskeletal: pulses present, edema present (1+) Neurological: non-focal, moves all 4 limbs Psychiatric: normal affect, A&O x 3 Skin: no rash, cap refill <2 seconds Dx/Plan (1) Acute kidney injury superimposed on CKD Code(s): N17.9 - ACUTE KIDNEY FAILURE, UNSPECIFIED; N18.9 - CHRONIC KIDNEY DISEASE, UNSPECIFIED Status: Acute (2) ESRD (end stage renal disease) Code(s): N18.6 - END STAGE RENAL DISEASE Status: Acute (3) HTN (hypertension) Code(s): I10 - ESSENTIAL (PRIMARY) HYPERTENSION Status: Acute (4) Diabetes mellitus, type II Status: Acute - Plan Plan: 68 year old male presents with ESRD, here to initiate HD 1. ESRD 2/2 diabetic nephropathy, here to initiate HD - GFR 11 - Sent over from Dr. Hernandez's office - s/p fistula and temporary cath for dialysis - Dialysis over next 3-4 days daily per nephro (should be done by Sat) - Daily BMP's - Phos high at 5.2, Mg WNL - Daily weights - Strict I&O's; output 1.2 L - Hepatitis panel negative - Follow nephro recs 2. HTN - Improved with dialysis - Continue home medications - Hydralazine PRN SBP >180 3. DM type II - Continue home meds - Hyperglycemia protocol 4. Mild leukocytosis, resolved - WBC 11.5 - Procal negative 5. Normocytic anemia - 11 -> 9.7 - Likely 2/2 ESRD - May need erythropoetin; will defer to nephro - Continue to monitor Dispo: Stable. Continue dialysis over next 3-[address] Hernandez. Pending chair at outpatient dialysis center. Addendum - Attending - Attending Attestation Date/Time: 01/31/19 7832 I personally evaluated the patient and discussed the management with Dr. Esposito I agree with the History, Examination, Assessment and Plan documented above with any addition or exceptions noted below. Patient tolerating HD well BP controlled regard DM will continue SS and adjust basal insulin .Patient with hypoglycemic episode earlier this hospital stay and reluctant to take adjusted insulin dose.
[2019-01-31] MEDS: Ferrous Sulfate 325 MG TAB PO SCH (18:36)
[2019-01-31] MEDS: Atorvastatin Calcium 10 MG TAB PO SCH (20:50)
[2019-01-31] MEDS: Terazosin HCl 1 MG CAP PO SCH (20:51)
[2019-01-31] MEDS: Losartan 25 MG TAB PO SCH (20:51)
[2019-01-31] MEDS ORDERED: Insulin Glargine 25 UNITS in Pre-Filled Syringe SC SCH (21:00)
[2019-02-01 05:42] LABS: Anion Gap 13 mmol/L (10-20); BUN (Urea Nitrogen) 41 mg/dL (8.4-25.7); Calc. Creatinine Clearance 15 mL/min (70-130); Calcium 8.4 mg/dL (7.8-10.44); Carbon Dioxide 25 mmol/L (23-31); Chloride 104 mmol/L (98-107); Estimated GFR-MDRD 12; Glucose 137 mg/dL (80-115); Potassium 4.4 mmol/L (3.5-5.1); Sodium 138 mmol/L (136-145)
[2019-02-01] MEDS: READ PPD TEST SITE TOP SCH (05:55)
--- NOTE | 2019-02-01 07:43 | PDOC.FM ---
- Subjective Subjective: Patient doing well this AM. No significant overnight events. Patient states he is has no complaints. He denies N/V, chest pain, or shortness of breath. - Objective MAR Reviewed: Yes Vital Signs & Weight: Vital Signs (12 hours) Temp Pulse Resp BP BP BP Pulse Ox 02/01/19 07:23 100 02/01/19 07:22 97.6 F 60 18 165/86 H 100 02/01/19 03:57 97.8 F 60 18 128/69 96 01/31/19 20:50 150/72 H 01/31/19 20:00 97.8 F 60 20 150/72 H 96 Weight Weight 70.307 kg I&O: 01/31/19 02/01/19 02/02/19 06:59 06:59 06:59 Intake Total 600 Output Total 1025 Balance -425 Result Diagrams: 01/31/19 06:05 02/01/19 04:30 EKG Reviewed by me: Yes Radiology Reviewed by me: Yes Phys Exam - Physical Examination Constitutional: NAD HEENT: moist MMs Respiratory: clear to auscultation bilateral Cardiovascular: RRR Gastrointestinal: soft, non-tender Musculoskeletal: no edema, pulses present Neurological: non-focal, moves all 4 limbs Psychiatric: normal affect, A&O x 3 Skin: no rash, cap refill <2 seconds Dx/Plan (1) Acute kidney injury superimposed on CKD Code(s): N17.9 - ACUTE KIDNEY FAILURE, UNSPECIFIED; N18.9 - CHRONIC KIDNEY DISEASE, UNSPECIFIED Status: Acute (2) ESRD (end stage renal disease) Code(s): N18.6 - END STAGE RENAL DISEASE Status: Acute (3) HTN (hypertension) Code(s): I10 - ESSENTIAL (PRIMARY) HYPERTENSION Status: Acute (4) Diabetes mellitus, type II Status: Acute - Plan Plan: 68 year old male presents with ESRD, here to initiate HD 1. ESRD 2/2 diabetic nephropathy, here to initiate HD - GFR 11 - Sent over from Dr. Hernandez's office - s/p fistula and temporary cath for dialysis - Dialysis over next 3-4 days daily per nephro (should be done by Sat) - Daily BMP's; Kidney function improving - Phos high at 5.2, Mg WNL - Daily weights - Strict I&O's; output nearly 3 L documented urine - Hepatitis panel negative - Follow nephro recs 2. HTN - Improved with dialysis - Continue home medications - Hydralazine PRN SBP >180 3. DM type II - Continue home meds; will titrate for better control - Hyperglycemia protocol 4. Mild leukocytosis, resolved - WBC 11.5 on presentation, back up to 12.3 yesterday - Procal negative - No s/s infection 5. Normocytic anemia - 11 -> 9.7 - Likely 2/2 ESRD - May need erythropoetin; will defer to nephro (patient started on epogen) - Continue to monitor Dispo: Stable. Continue dialysis over next 3-[address] Hernandez. Pending chair at outpatient dialysis center. Addendum - Attending - Attending Attestation Date/Time: 02/01/19 1012 I personally evaluated the patient and discussed the management with Dr. Esposito I agree with the History, Examination, Assessment and Plan documented above with any addition or exceptions noted below.Continue to adjust insulin dose will inpatient. Patient tolerating dialysis will.
--- NOTE | 2019-02-01 07:45 | PRG ---
DATE OF SERVICE: 02/01/2019 SUBJECTIVE: Mr. Colon is a 68-year-old male, who was admitted for uremia/progressive azotemia. Hemodialysis has been initiated. So far, he is tolerating said treatment. The plan again is for him to undergo hemodialysis today. No other complaints today. No chest pain or shortness of breath. OBJECTIVE: VITAL SIGNS: Blood pressure 128/69, heart rate 60, respiratory rate 18, temperature 97.8, and pulse ox 96%. GENERAL: Awake, alert, comfortable, not in overt distress. SKIN: Adequate turgor. HEENT: He has pinkish conjunctivae. Anicteric sclerae. No neck mass. No carotid bruits. No JVD. CHEST: No deformities. LUNGS: Clear breath sounds. HEART: Normal sinus rhythm. No murmur. No gallops. No rubs. ABDOMEN: Globular, soft, and nontender. No masses. EXTREMITIES: No edema. No deformities. MEDICATIONS: Medications of February 01, 2019, reviewed. LABORATORY DATA: Laboratories of January 31, 2019; hemoglobin 9.4. On February 01, 2019; potassium 4.4, BUN 41, creatinine 4.79, GFR 12 mL/minute, and calcium 8.4. ASSESSMENT AND PLAN: 1. Anemia. Started on Epogen. Continue ferrous sulfate. 2. Chronic renal failure/end stage renal disease, initiating hemodialysis, so far tolerating said dialysis treatment. The plan is to do another dialytic intervention-between 3 and 4 hours. Fluid removal as tolerated. Please note, we have discontinued the patient's furosemide. 3. Hypertension, much improved with fluid removal. Continue current BP medications. Awaiting outpatient dialysis placement. Job ID: [id number]
[2019-02-01] MEDS ORDERED: Insulin Glargine 30 UNITS in Pre-Filled Syringe 1 EACH SC SCH (09:00)
[2019-02-01] MEDS: Ferrous Sulfate 325 MG TAB PO SCH ×2 (09:55→16:26)
[2019-02-01] MEDS: cloNIDine 0.2 MG TAB PO SCH ×2 (09:55→21:03)
[2019-02-01] MEDS: Aspirin 81 mg Enteric Coated Tablet PO SCH (09:55)
[2019-02-01] MEDS: Amlodipine 10 MG TAB PO SCH (09:56)
[2019-02-01] MEDS: Calcitriol 0.25 MCG CAP PO SCH (09:56)
[2019-02-01] MEDS: Carvedilol 6.25 MG TAB PO SCH ×2 (09:56→21:03)
[2019-02-01] MEDS: Atorvastatin Calcium 10 MG TAB PO SCH (21:03)
[2019-02-01] MEDS: Terazosin HCl 1 MG CAP PO SCH (21:04)
[2019-02-01] MEDS: Losartan 25 MG TAB PO SCH (21:04)
[2019-02-01] MEDS: Polyethylene Glycol 3350 17 GM Packet PO PRN (21:07)
[2019-02-01] MEDS: Insulin Glargine 25 UNITS in Pre-Filled Syringe 1 EACH SC SCH (21:08)
--- NOTE | 2019-02-02 06:20 | PDOC.FM ---
- Subjective Subjective: Pt reports he did well overnight. He reports some pain in his tunnel catheter in his right chest. He denies nausea, vomiting, or diarrhea. He states his sugar was low this morning. - Objective MAR Reviewed: Yes Vital Signs & Weight: Vital Signs (12 hours) Temp Pulse Resp BP Pulse Ox 02/02/19 05:00 96 02/02/19 04:00 98.1 F 60 18 144/75 H 96 02/01/19 19:45 98.2 F 60 18 136/77 96 Weight Weight 69.763 kg I&O: 01/31/19 02/01/19 02/02/19 06:59 06:59 06:59 Intake Total 600 240 Output Total 1025 0 Balance -425 240 Result Diagrams: 01/31/19 06:05 02/01/19 04:30 Phys Exam - Physical Examination Constitutional: NAD HEENT: moist MMs Neck: no JVD, full ROM Respiratory: no wheezing, clear to auscultation bilateral Cardiovascular: RRR, no significant murmur Gastrointestinal: soft, non-tender, no distention, positive bowel sounds Musculoskeletal: no edema, pulses present Neurological: non-focal, moves all 4 limbs Psychiatric: normal affect, A&O x 3 Skin: cap refill <2 seconds Deviation from normal: Tunnel cath in right chest inplace, no signs of infection -: Fistula in right forearm healing well, no signs of infection Dx/Plan (1) Acute kidney injury superimposed on CKD Code(s): N17.9 - ACUTE KIDNEY FAILURE, UNSPECIFIED; N18.9 - CHRONIC KIDNEY DISEASE, UNSPECIFIED Status: Acute (2) Diabetes mellitus, type II Status: Acute (3) ESRD (end stage renal disease) Code(s): N18.6 - END STAGE RENAL DISEASE Status: Acute (4) HTN (hypertension) Code(s): I10 - ESSENTIAL (PRIMARY) HYPERTENSION Status: Acute - Plan Plan: This is a 68 yo male pmh of HTN, DM2 ESRD 2/2 diabetic nephropathy, initiating HD -GFR 12 at last check (02/01) -Dr. Hernandez consulted, will appreciate recommendations -s/p fistula and tunnel cath -Inpt dialysis, pending outpt dialysis placement, hopefully home today -Daily BMPs -Phos 5.2, mag WNL -Daily weights, wt trending down -Strict I&Os HTN -Improving with dialysis -Continue home meds -PRN in place DM2 -Continue home meds -ACHS accuchecks and SSI Leukocytosis -Procal negative -No s/s infection Normocytic anemia -Likely 2/2 ESRD -Continue to monitor Addendum - Attending - Attending Attestation Date/Time: 02/02/19 5796 I personally evaluated the patient and discussed the management with Dr. Canales I agree with the History, Examination, Assessment and Plan documented above with any addition or exceptions noted below. Dismissal anticipated when Dialysis chair obtained and cleared for dismissal per Dr Hernandez. Patient with no questions today and tolerating HD well.
[2019-02-02] MEDS: Calcitriol 0.25 MCG CAP PO SCH (08:53)
[2019-02-02] MEDS: cloNIDine 0.2 MG TAB PO SCH ×2 (08:53→20:44)
[2019-02-02] MEDS: Amlodipine 10 MG TAB PO SCH (08:53)
[2019-02-02] MEDS: Aspirin 81 mg Enteric Coated Tablet PO SCH (08:53)
[2019-02-02] MEDS: Ferrous Sulfate 325 MG TAB PO SCH ×2 (08:53→17:11)
[2019-02-02] MEDS: Carvedilol 6.25 MG TAB PO SCH ×2 (08:53→20:44)
--- NOTE | 2019-02-02 08:56 | PRG ---
DATE OF SERVICE: 02/02/2019 SUBJECTIVE: Isaiah is a 68-year-old male, followed up by the [facility] for his chronic renal failure. Hemodialysis has been initiated. He has had an AV fistula and cuffed dialysis catheter placed. He has no new complaints today. He is tolerating said dialysis regimen. The patient voices no chest pain or shortness of breath. We are currently awaiting outpatient dialysis placement for him. OBJECTIVE: VITAL SIGNS: Blood pressure 144/75, heart rate 60, respiratory rate 18, temperature 98.1, and pulse ox 96%. GENERAL: Noted to be awake, alert, comfortable, not in distress. SKIN: Adequate turgor. HEENT: He has pinkish conjunctivae. Anicteric sclerae. NECK: No neck mass. No carotid bruits. No JVD. CHEST: No deformities. LUNGS: Clear breath sounds. HEART: Normal sinus rhythm. No murmurs, gallops, or rubs. ABDOMEN: Globular, soft, and nontender. No masses. EXTREMITIES: No edema. No deformities. MEDICATIONS: Medications of February 02, 2019, was reviewed. LABORATORY DATA: Laboratories of January 31, 2019, hemoglobin 9.4. On February 02, 2019, glucose 90. On February 01, 2019, BUN 41, creatinine 4.79, and potassium 4.4. ASSESSMENT AND PLAN: 1. Chronic renal failure/end-stage renal disease stable. We will continue current hemodialysis regimen of 3 times a week, tolerating said treatment. No indication for any emergent dialysis today. 2. Anemia. continuing weekly Epogen and daily ferrous sulfate. 3. Congestive heart failure, resolved. 4. Awaiting outpatient dialysis placement. Job ID: [id number]
[2019-02-02] MEDS: Insulin Glargine 25 UNITS in Pre-Filled Syringe 1 EACH SC SCH ×2 (10:07→20:45)
[2019-02-02] MEDS: Atorvastatin Calcium 10 MG TAB PO SCH (20:44)
[2019-02-02] MEDS: Losartan 25 MG TAB PO SCH (20:44)
[2019-02-02] MEDS: Terazosin HCl 1 MG CAP PO SCH (20:47)
--- NOTE | 2019-02-03 06:28 | PDOC.FM ---
- Subjective Subjective: Pt reports doing well overnight. He denies CP, SOB, abdominal pain, nausea, or vomiting. He states he thinks placement may happen Monday or Monday. - Objective MAR Reviewed: Yes Vital Signs & Weight: Vital Signs (12 hours) Temp Pulse Resp BP Pulse Ox 02/03/19 03:32 98.6 F 62 17 132/74 92 L 02/02/19 19:15 97.8 F 70 18 172/82 H 98 Weight Weight 70.715 kg I&O: 02/01/19 02/02/19 02/03/19 06:59 06:59 06:59 Intake Total 240 960 Output Total 0 700 Balance 240 260 Result Diagrams: 01/31/19 06:05 02/01/19 04:30 Phys Exam - Physical Examination Constitutional: NAD HEENT: moist MMs Neck: no JVD, full ROM Respiratory: no wheezing, no rales, clear to auscultation bilateral Cardiovascular: RRR, no significant murmur, no rub Gastrointestinal: soft, non-tender, no distention, positive bowel sounds Musculoskeletal: no edema, pulses present Neurological: normal sensation, moves all 4 limbs Psychiatric: normal affect, A&O x 3 Skin: cap refill <2 seconds Dx/Plan (1) Acute kidney injury superimposed on CKD Code(s): N17.9 - ACUTE KIDNEY FAILURE, UNSPECIFIED; N18.9 - CHRONIC KIDNEY DISEASE, UNSPECIFIED Status: Acute (2) Diabetes mellitus, type II Status: Acute (3) ESRD (end stage renal disease) Code(s): N18.6 - END STAGE RENAL DISEASE Status: Acute (4) HTN (hypertension) Code(s): I10 - ESSENTIAL (PRIMARY) HYPERTENSION Status: Acute - Plan Plan: This is a 68 yo male pmh of HTN, DM2 ESRD 2/2 diabetic nephropathy, initiating HD -GFR 12 at last check (02/01) -Dr. Hernandez consulted, will appreciate recommendations -s/p fistula and tunnel cath -Inpt dialysis, pending outpt dialysis placement, hopefully Monday or Monday -Daily BMPs -Daily weights, wt trending down -Strict I&Os HTN -Improving with dialysis -Continue home meds, consider changing losartan to a different medication -PRN in place DM2 -Continue home meds, decreasing long acting insulin due to hypoglycemic episodes -ACHS accuchecks and SSI Leukocytosis -Procal negative -No s/s infection Normocytic anemia -Likely 2/2 ESRD -Continue to monitor Addendum - Attending - Attending Attestation Date/Time: 02/03/19 1201 I personally evaluated the patient and discussed the management with Dr. Canales I agree with the History, Examination, Assessment and Plan documented above with any addition or exceptions noted below.
[2019-02-03] MEDS: Aspirin 81 mg Enteric Coated Tablet PO SCH (09:09)
[2019-02-03] MEDS: Calcitriol 0.25 MCG CAP PO SCH (09:09)
[2019-02-03] MEDS: Amlodipine 10 MG TAB PO SCH (09:09)
[2019-02-03] MEDS: Carvedilol 6.25 MG TAB PO SCH ×2 (09:10→21:38)
[2019-02-03] MEDS: cloNIDine 0.2 MG TAB PO SCH ×2 (09:10→21:39)
[2019-02-03] MEDS: Ferrous Sulfate 325 MG TAB PO SCH ×2 (09:10→16:38)
[2019-02-03] MEDS: Insulin Glargine 25 UNITS in Pre-Filled Syringe 1 EACH SC SCH ×2 (10:45→21:39)
[2019-02-03] MEDS: Atorvastatin Calcium 10 MG TAB PO SCH (21:38)
[2019-02-03] MEDS: Terazosin HCl 1 MG CAP PO SCH (21:40)
[2019-02-03] MEDS: Losartan 25 MG TAB PO SCH (21:40)
[2019-02-04] MEDS: Amlodipine 10 MG TAB PO SCH (08:53)
[2019-02-04] MEDS: Insulin Glargine 25 UNITS in Pre-Filled Syringe 1 EACH SC SCH (08:54)
[2019-02-04] MEDS: cloNIDine 0.2 MG TAB PO SCH (08:54)
--- NOTE | 2019-02-04 08:59 | PDOC.FM ---
- Subjective Subjective: Patient in dialysis. No significant overnight events. Still pending chair for outpatient dialysis. - Objective MAR Reviewed: Yes Vital Signs & Weight: Vital Signs (12 hours) Temp Pulse Resp BP BP Pulse Ox 02/04/19 08:53 59 L 02/04/19 07:40 97 02/04/19 07:37 97.9 F 59 L 17 125/65 97 02/04/19 03:26 98.2 F 60 16 134/71 94 L 02/03/19 23:25 63 133/72 Weight Weight 70.579 kg I&O: 02/03/19 02/04/19 02/05/19 06:59 06:59 06:59 Intake Total 960 1088 Output Total 700 800 Balance 260 288 Result Diagrams: 02/04/19 09:33 02/04/19 09:33 EKG Reviewed by me: Yes Radiology Reviewed by me: Yes Phys Exam - Physical Examination Constitutional: NAD HEENT: moist MMs Respiratory: clear to auscultation bilateral Cardiovascular: RRR, no significant murmur Gastrointestinal: soft, no distention Musculoskeletal: pulses present Trace Neurological: non-focal, moves all 4 limbs Psychiatric: normal affect, A&O x 3 Skin: no rash, cap refill <2 seconds Dx/Plan (1) Acute kidney injury superimposed on CKD Code(s): N17.9 - ACUTE KIDNEY FAILURE, UNSPECIFIED; N18.9 - CHRONIC KIDNEY DISEASE, UNSPECIFIED Status: Acute (2) ESRD (end stage renal disease) Code(s): N18.6 - END STAGE RENAL DISEASE Status: Acute (3) HTN (hypertension) Code(s): I10 - ESSENTIAL (PRIMARY) HYPERTENSION Status: Acute (4) Diabetes mellitus, type II Status: Acute - Plan Plan: This is a 68 yo male pmh of HTN, DM2 ESRD 2/2 diabetic nephropathy, initiating HD -GFR 12 -Dr. Hernandez consulted, appreciate recommendations -s/p fistula and tunnel cath -Inpt dialysis, pending outpt dialysis placement, hopefully today or tomorrow -Daily BMPs -Daily weights, wt trending down -Strict I&Os HTN -Improving with dialysis -Continue home meds -PRN in place DM2 -Continue home insulin -ACHS accuchecks and SSI -BG labile -Started on ARB per nephrology -Switch to high intensity statin -Continue ASA Leukocytosis -Procal negative -No s/s infection Normocytic anemia -Likely 2/2 ESRD -Continue to monitor HLD -Switch to high intensity statin Dispo: Continue inpt dialysis until seat at outpatient facility has been obtained. Addendum - Attending - Attending Attestation Date/Time: 02/05/19 5850 I personally evaluated the patient and discussed the management with Dr. Esposito on 02/04/2019 I agree with the History, Examination, Assessment and Plan documented above with any addition or exceptions noted below - Patient without complaints. Afebrile VSS. A/P: 1) ESRD - continue HD; awaiting outpatient chair for dialysis. Stable for discharge once has outpatient chair. 2) DM- continue current meds 3) HTN- stable; continue current meds
[2019-02-04] MEDS ORDERED: Atorvastatin Calcium 10 MG TAB PO SCH (09:06)
[2019-02-04 09:49] LABS: #Basophils 0.1 thou/uL (0.0-0.2); #Eosinphils 1.2 thou/uL (0.0-0.7); #Lymphocytes 2.1 thou/uL (1.20-3.40); #Monocytes 0.7 thou/uL (0.11-0.59); #Neutrophils 9.9 thou/uL (1.40-6.50); %Basophils 0.4 % (0.0-1.0); %Eosinophils 8.6 % (0.0-10.0); %Lymphocytes 14.9 % (21.0-51.0); %Monocytes 5.2 % (0.0-10.0); %Neutrophils 70.9 % (42.0-75.0); Hemoglobin 10.2 g/dL (14.0-18.0); Mean Corpuscular Hemoglobin 28.9 pg (27.0-31.0); Mean Corpuscular Volume 90.3 fL (78.0-98.0); Platelet Count 292 thou/uL (130-400); RBC Distribution Width 12.6 % (11.5-14.5); Red Blood Cell (RBC) Count 3.52 mill/uL (4.70-6.10); White Blood Cell (WBC) Count 13.9 thou/uL (4.8-10.8)
[2019-02-04 09:55] LABS: ALT (SGPT) 43 U/L (8-55); AST (SGOT) 39 U/L (5-34); Albumin 3.2 g/dL (3.4-4.8); Alkaline Phosphatase 70 U/L (40-150); Anion Gap 12 mmol/L (10-20); BUN (Urea Nitrogen) 43 mg/dL (8.4-25.7); Bilirubin, Total 0.3 mg/dL (0.2-1.2); Calc. Creatinine Clearance 13 mL/min (70-130); Calcium 9.2 mg/dL (7.8-10.44); Carbon Dioxide 25 mmol/L (23-31); Chloride 103 mmol/L (98-107); Estimated GFR-MDRD 11; Glucose 144 mg/dL (80-115); Protein, Total 6.2 g/dL (5.8-8.1); Sodium 136 mmol/L (136-145)
--- NOTE | 2019-02-04 10:23 | PRG ---
DATE OF SERVICE: 02/04/2019 SUBJECTIVE: Mr. Colon is a 68-year-old male, who was initiated on dialysis due to uremic signs and symptoms and progressive azotemia. He is currently undergoing dialysis and tolerating said treatment. No new complaints. No chest pain or shortness of breath. OBJECTIVE: VITAL SIGNS: Blood pressure 125/65, heart rate 59, respiratory rate 17, temperature 97.9, pulse ox 97%. GENERAL: Awake, alert, comfortable, not in distress. SKIN: Adequate turgor. HEENT: Pinkish conjunctivae. Anicteric sclerae. NECK: No neck mass. No carotid bruits. No JVD. CHEST: No deformities. LUNGS: Clear breath sounds. HEART: Normal sinus rhythm. No murmur. No gallops. No rubs. ABDOMEN: Globular, soft, nontender, no masses. EXTREMITIES: No edema. MEDICATIONS: Medications of February 04, 2019, reviewed. LABORATORY DATA: Laboratories of February 04, 2019, white count 13.9, hemoglobin 10.2. Chemistries are pending. On February 03, 2019, glucose 114. ASSESSMENT AND PLAN: 1. Chronic renal failure/end-stage renal disease, stable, tolerating current hemodialysis regimen, fluid removal only as tolerated, using no heparin. We are currently awaiting outpatient dialysis placement. 2. Anemia, stable on ferrous sulfate. In addition, the patient is also on Epogen 7500 units subcu every 7 days. 3. Hypertension, excellent control, continue current BP medications. Job ID: [id number]
[2019-02-04] MEDS: Ferrous Sulfate 325 MG TAB PO SCH ×2 (14:00→17:26)
[2019-02-04] MEDS: Carvedilol 6.25 MG TAB PO SCH (14:01)
[2019-02-04] MEDS: Calcitriol 0.25 MCG CAP PO SCH (14:01)
[2019-02-04] MEDS: Aspirin 81 mg Enteric Coated Tablet PO SCH (14:01)
[2019-02-04] MEDS: Polyethylene Glycol 3350 17 GM Packet PO PRN (17:26)
[2019-02-04] MEDS ORDERED: Heparin 10,000 UNITS/ 10 ML VIAL ONE (19:26)
[2019-02-04 19:49] VITALS: BP 141/75; TEMP 98.4
[2019-02-04] MEDS ORDERED: Atorvastatin Calcium 40 MG TAB PO SCH (21:00)
--- NOTE | 2019-02-05 06:16 | DIS ---
DATE OF ADMISSION: 01/28/2019 DATE OF DISCHARGE: 02/04/2019 RESIDENT: Ana Esposito DO ADMITTING ATTENDING: Yogesh Cartagena MD. CONSULTS: 1. Nephrology, Dr. Ari Hernandez. 2. General Surgery, Dr. Horton. PROCEDURES: 1. Marking ultrasound showed predialysis access planning as documented in chart. 2. Chest x-ray showed right IJ dialysis catheter without evidence of pneumothorax and stable cardiomegaly. 3. Right internal jugular cuffed tunneled hemodialysis catheter, ultrasound and fluoroscopy used. A right Jarocho fistula, 4 mm coronary dilator, cephalic vein. Good Doppler signal throughout the forearm, course of the cephalic vein. PRIMARY DIAGNOSES: 1. End-stage renal disease, initiating hemodialysis. 2. Diabetes mellitus type 2, uncontrolled. 3. Hypertension. 4. Leukocytosis. 5. Normocytic anemia. 6. Hyperlipidemia. DISCHARGE MEDICATIONS: 1. Amlodipine 10 mg p.o. daily. 2. Aspirin 81 mg p.o. daily. 3. Calcitriol 0.25 mcg p.o. daily. 4. Carvedilol 12.5 mg p.o. b.i.d. 5. Clonidine 0.2 mg p.o. b.i.d. 6. Insulin glargine 25 units subcu b.i.d. 7. Nitroglycerin 0.2 mg sublingual q.5h minutes p.r.n. 8. Terazosin 2 mg p.o. at bedtime. 9. Atorvastatin calcium 40 mg p.o. at bedtime. 10. Epoetin ángel-epbx 7500 units subcu q.week. 11. Ferrous sulfate 325 mg p.o. b.i.d. 12. Losartan 50 mg p.o. at bedtime. HOSPITAL COURSE/HOSPITAL COURSE: This is a pleasant 68-year-old male who presented for Dr. Hernandez's office for initiation of hemodialysis. The patient has chronic kidney disease secondary to diabetic nephropathy. His GFR was 11 on admission. The patient was noted to be fatigued and weak with lower extremity swelling and some shortness of breath on admission. The after lengthy discussion with Dr. Hernandez, it was decided that the patient be started on hemodialysis. Dr. Horton was consulted for a temporary catheter as well as a fistula. A fistula was placed in the right forearm and a tunneled catheter was placed to initiate hemodialysis. The patient underwent hemodialysis with gradual diuresis over a period of 4 days. He diuresed very well and his lower extremity edema essentially resolved. The patient was asymptomatic during the course of his hospital stay. The patient has known history of diabetes mellitus and takes Lantus 25 mg p.o. b.i.d. as prescribed by his PCP. The patient was noted to have a hypoglycemic episode in the a.m. after admission and thus refused insulin on several occasions during his hospital stay due to concerns for hypoglycemia. At one point, the insulin regimen was actually increased, because patient's blood glucose levels were in the 300s. However, patient had a subsequent hypoglycemic episode and the insulin was titrated back down to his initial insulin regimen. Labile blood glucose may be secondary to hemodialysis, although the patient will need to be monitored very closely as an outpatient for further titration. Patient received chair outpatient dialysis. He did get dialysis on day of discharge. The patient is to follow tri-weekly with dialysis and he will need further management of his diabetes. The patient is currently on Nav and ARB as prescribed by Nephrology to help with kidney function. He is also on a statin, which was switched to high-intensity statin and aspirin. The patient was noted to have an anemia with hemoglobin at 10, hematocrit 30. The patient was started on ferrous sulfate. Per Nephrology, he was also started on Epotein q.week for treatment of anemia likely secondary to chronic kidney disease. DISCHARGE INSTRUCTIONS: 1. Location: Home. 2. Activity: As tolerated. 3. Diet: Diabetic, heart healthy. 4. Followup: The patient is to follow up with Dr. Smith at [facility] within 7 days of discharge from hospital. The patient did receive a chair at the outpatient dialysis center and has dialysis appointment for Monday. Job ID: [id number]
== END 2019-02-04 20:41 | disposition home or self-care (01) | DRG 674 ==
LOC: ERS 08:29 → ERHOLD 11:12 → 2NO 15:30
PROVIDERS: ADMIT Family Medicine; ATTEND Family Medicine
PROC: 02HV33Z Insertion of Infusion Device into Superior Vena Cava, Percutaneous Approach (ICD-10-PCS; principal; 2019-01-28)
PROC: 5A1D70Z Performance of Urinary Filtration, Intermittent, Less than 6 Hours Per Day (ICD-10-PCS; 2019-01-28)
PROC: 031B0ZF Bypass Right Radial Artery to Lower Arm Vein, Open Approach (ICD-10-PCS; 2019-01-28)
DX: N17.9 Acute kidney failure, unspecified (principal); I13.2 Hypertensive heart and chronic kidney disease with heart failure and with stage 5 chronic kidney disease, or end stage renal disease; E11.22 Type 2 diabetes mellitus with diabetic chronic kidney disease; N18.6 End stage renal disease; N25.81 Secondary hyperparathyroidism of renal origin; F32.9 Major depressive disorder, single episode, unspecified; D63.1 Anemia in chronic kidney disease; E78.00 Pure hypercholesterolemia, unspecified; E11.65 Type 2 diabetes mellitus with hyperglycemia; I50.9 Heart failure, unspecified
CPT/HCPCS: 36415; 36416; 71045; 80048; 80053; 83735; 84100; 84145; 85025; 86580; 86704; 86706; 86803; 87340; 90935; 93005; 93970; C1752; C1769; G0257; G0365; J0670; J0690; J1100; J1644; J1825; J1940; J2001; J2405; J2704; J2720; J3010; J3490; Q5105

== ENCOUNTER 2019-05-10 21:21 | Inpatient (IN) | payer MEDICARE, OTHER ==
--- NOTE | 2019-05-10 22:12 | RAD ---
EXAM: CHEST ONE VIEW PORTABLE: 05/10/19 HISTORY: Chest pain. COMPARISON: 01/29/19. FINDINGS: Right dural lumen venous access catheter. Heart size is normal. The lungs are clear. IMPRESSION: No significant acute intrathoracic disease. Stable from prior study. POS: [facility]
[2019-05-10 22:17] LABS: Hemoglobin 10.8 g/dL (14.0-18.0); Mean Corpuscular HGB CONC 34.3 g/dL (32.0-36.0); Mean Corpuscular Hemoglobin 31.8 pg (27.0-31.0); Mean Corpuscular Volume 92.8 fL (78.0-98.0); Mean Platelet Volume 7.5 fL (7.4-10.4); Platelet Count 201 thou/uL (130-400); RBC Distribution Width 13.7 % (11.5-14.5); White Blood Cell (WBC) Count 5.2 thou/uL (4.8-10.8)
[2019-05-10 22:17] LABS: ALT (SGPT) 70 U/L (8-55); AST (SGOT) 124 U/L (5-34); Albumin 3.8 g/dL (3.4-4.8); Alkaline Phosphatase 80 U/L (40-150); Anion Gap 13 mmol/L (10-20); BUN (Urea Nitrogen) 17 mg/dL (8.4-25.7); Bilirubin, Total 1.2 mg/dL (0.2-1.2); Calc. Creatinine Clearance 0 mL/min (70-130); Calcium 8.7 mg/dL (7.8-10.44); Carbon Dioxide 31 mmol/L (23-31); Chloride 98 mmol/L (98-107); Estimated GFR-MDRD 17; Globulin 2.6 g/dL (2.4-3.5); Glucose 122 mg/dL (80-115); Potassium 3.4 mmol/L (3.5-5.1); Protein, Total 6.4 g/dL (5.8-8.1); Sodium 139 mmol/L (136-145)
[2019-05-10 22:37] LABS: Band 25 % (5-11); Eosinophils 1 % (0-10); Lymphocytes 4 % (21-51); MDiff Complete? YES; Neutrophil 70 % (42-75)
--- NOTE | 2019-05-10 23:07 | PDOC.FPRHP ---
- History of Present Illness Chief Complaint: CP during dialysis History of Present Illness: Mr. Isaiah Hoskins is a pleasant, Frisian speaking only, gentleman who presented to the ED this evening after experiencing chest pain, hypotension, and 2 episodes of emesis while at dialysis today. He was 3 hours into a 4 hour treatment. He states that this is the first time it's happened in dialysis, but he has had similar pain in the last week. He recalls one episode last week that woke him from sleeping. He describes it as mid-sternal pressure that is accompanied by numbness in his right hand. He didn't have nausea or vomiting during the episode last week. He denies any previous KS. He has a history of ESRD with AV fistula placed in January of this year. ED Course: 500mL fluid bolus - Allergies/Adverse Reactions Allergies Allergy/AdvReac Type Severity Reaction Status Date / Time No Known Drug Allergies Allergy Verified 05/11/19 01:06 - Home Medications Medication Instructions Recorded Confirmed Type Aspirin [Aspir 81] 81 mg PO DAILY 04/07/13 05/11/19 History Amlodipine [Norvasc] 10 mg PO DAILY 01/28/19 05/11/19 History Calcitriol 0.25 mcg PO DAILY 01/28/19 05/11/19 History Carvedilol 12.5 mg PO BID 01/28/19 05/11/19 History Insulin Glargine,Hum.Rec.Anlog 25 units SQ DAILY 01/28/19 05/11/19 History [Lantus] Nitroglycerin [Nitrostat] 0.3 mg SL Q5MIN PRN 01/28/19 05/11/19 History Terazosin HCl [Hytrin] 2 mg PO HS 01/28/19 05/11/19 History cloNIDine [Catapres] 0.2 mg PO BID 01/28/19 05/11/19 History Atorvastatin Calcium [Lipitor] 40 mg PO HS #30 tab 02/04/19 05/11/19 Rx Epoetin Donnie-Epbx [Retacrit] 7,500 unit SC Q7D vial 02/04/19 05/11/19 Rx Ferrous Sulfate [Feosol] 65 mg PO DAILY 05/11/19 05/11/19 History Losartan [Cozaar] 50 mg PO HS 05/11/19 05/11/19 History Sertraline HCl 50 mg PO DAILY 05/11/19 05/11/19 History - History PMHx: HTN HLD ESRD on HD DMII PSHx: Cholecystectomy Right IJ central line Right AV fistula FHx: Non-contributory Social: Denies tobacco use, drinks alcohol occasionally - Review of Systems General: reports: fever/chills, weight/appetite/sleep changes. denies: night sweats Eyes: reports: vision changes (wears glasses). denies: eye pain ENT: reports: nasal congestion (in the morning). denies: rhinorrhea Respiratory: denies: cough, shortness of breath Cardiovascular: reports: chest pain. denies: palpitation, edema, paroxysmal nocturnal dyspnea, orthopnea Gastrointestinal: reports: nausea, vomiting, other (GERD). denies: diarrhea, constipation, abdominal pain Genitourinary: reports: other (very little urine output). denies: incontinence , dysuria Skin: denies: rashes, lesions Musculoskeletal: denies: pain, tenderness Neurological: denies: numbness, syncope - Vital signs BP: [] HR: [] RR: [] Tmax: [] Pox: []% on [] Wt: [] - Physical Exam Constitutional: NAD, awake, alert and oriented, well developed HEENT: normocephalic and atraumatic, PERRLA, EOMI, grossly normal vision, grossly normal hearing, MMM Neck: supple, FROM Chest: no-tender to palpation, no lesions Heart: RRR, normal S1/S2, no murmurs/rubs/gallops Lungs: CTAB, no respiratory distress, good air movement, no rales/rhonchi, no wheezing Abdomen: soft, non-tender, bowel sounds present Musculoskeletal: normal structure, normal tone, ROM grossly normal Neurological: no focal deficit, CN II-XII intact Skin: no rash/lesions, good turgor Heme/Lymphatic: no unusual bruising or bleeding, no purpura Psychiatric: normal mood and affect, good judgment and insight, intact recent and remote memory FMR H&P: Results - Labs Result Diagrams: 05/10/19 21:46 05/10/19 21:47 Lab results: WBC 5.2 thou/uL (4.8-10.8) 05/10/19 21:46 Hgb 10.8 g/dL (14.0-18.0) L 05/10/19 21:46 Hct 31.5 % (42.0-52.0) L 05/10/19 21:46 MCV 92.8 fL (78.0-98.0) 05/10/19 21:46 Plt Count 201 thou/uL (130-400) 05/10/19 21:46 Band Neuts % (Manual) 25 % (5-11) H 05/10/19 21:46 Sodium 139 mmol/L (136-145) 05/10/19 21:47 Potassium 3.4 mmol/L (3.5-5.1) L 05/10/19 21:47 Chloride 98 mmol/L (98-107) 05/10/19 21:47 Carbon Dioxide 31 mmol/L (23-31) 05/10/19 21:47 BUN 17 mg/dL (8.4-25.7) 05/10/19 21:47 Creatinine 3.57 mg/dL (0.7-1.3) H 05/10/19 21:47 Glucose 122 mg/dL (80-115) H 05/10/19 21:47 Calcium 8.7 mg/dL (7.8-10.44) 05/10/19 21:47 Total Bilirubin 1.2 mg/dL (0.2-1.2) 05/10/19 21:47 AST 124 U/L (5-34) H 05/10/19 21:47 ALT 70 U/L (8-55) H 05/10/19 21:47 Alkaline Phosphatase 80 U/L (40-150) 05/10/19 21:47 Serum Total Protein 6.4 g/dL (5.8-8.1) 05/10/19 21:47 Albumin 3.8 g/dL (3.4-4.8) 05/10/19 21:47 - EKG Interpretation EKG: New RBBB FMR H&P: A/P - Problem List (1) Diabetes mellitus, type II Current Visit: No Status: Acute (2) ESRD (end stage renal disease) Current Visit: No Status: Acute Code(s): N18.6 - END STAGE RENAL DISEASE (3) HTN (hypertension) Current Visit: No Status: Acute Code(s): I10 - ESSENTIAL (PRIMARY) HYPERTENSION (4) Chest pain, atypical Current Visit: Yes Status: Acute Code(s): R07.89 - OTHER CHEST PAIN - Plan 1. Atypical chest pain * Heart score of 4. No cardiac workup documented. Will proceed with stress in the am. * Recent A1c and lipid panel in clinic was WNL. * Ordered TSH. * Will trend troponins and obtain EKG if chest pain recurs. 2. ESRD on hemodialysis * received adequate dialysis today, will resume schedule. * Will monitor with am labs. 3. HLD * stable, continue home medications 4. HTN * restart home medications 5. DMII * will continue home medications * Mod SS and Bedtime SS insulin * ACHS accuchecks Disposition/LOS: Dispo: OBS Code: FULL VTE: Heparin FMR H&P: Upper Level - Pertinent history 69 yo male presents with chestpain, hypotension, n/v during dialysis with pmhx of ESRD. - Pertinent findings Vitals: BP:99/57 HR: 72 RR: 20 O2sat:98%RA PE: RRR NAD CTAB a&ox3 no edema EKG: RBBB trop <.01 - Plan Date/Time: 05/10/19 7596 #Atypical chest pain- -heart score 4, no recent stress, will trend troponins, and repeat EKG if chest pain recurs -ordered stress for the am -added tsh #ESRD on dialysis- -received today, will monitor BUN/cr with am labs #Diabetes- -restart home meds, accuchecks ACHS -Hba1c 7.3 in 04/2019 #HLD -home meds -recent FLP done in clinic and wnl #HTN- -restart home meds DVT: SCDs CODE: full Samuel Mcrae MD, PGY-3
[2019-05-10] MEDS ORDERED: Ondansetron ODT 4 MG TAB PO PRN (23:58)
[2019-05-10] MEDS ORDERED: Dextrose 5% in Water 1,000 ML IV PRN (23:58)
[2019-05-10] MEDS ORDERED: Dextrose 50% Abboject 50 ML SYRINGE SLOW IVP PRN (23:58)
[2019-05-10] MEDS ORDERED: Acetaminophen 325 MG TAB PO PRN (23:58)
[2019-05-10] MEDS ORDERED: HumaLOG 300 UNITS/3 ML VIAL SC PRN ×2 (23:58)
[2019-05-10] MEDS ORDERED: Calcium Carbonate 500 MG ChewTAB PO PRN (23:58)
[2019-05-11 00:49] VITALS: BMI 24.9
[2019-05-11 01:26] LABS: Troponin I Less than 0.010 ng/mL (< 0.028)
[2019-05-11] MEDS ORDERED: EPOETIN ALFA-EPBX (ESRD) 4,000 UNIT/ML VIAL SC SCH (02:30)
[2019-05-11] MEDS ORDERED: Nitroglycerin 0.4 MG TAB (25 Tab Bottle) SL PRN (02:37)
[2019-05-11 05:17] LABS: Anion Gap 14 mmol/L (10-20); BUN (Urea Nitrogen) 21 mg/dL (8.4-25.7); Calc. Creatinine Clearance 16 mL/min (70-130); Calcium 8.7 mg/dL (7.8-10.44); Carbon Dioxide 31 mmol/L (23-31); Cardiac Risk 1.5 (Less than 4.5); Chloride 98 mmol/L (98-107); Cholesterol 72 mg/dl (< 200 Desired); Estimated GFR-MDRD 13; Glucose 94 mg/dL (80-115); HDL Cholesterol 47 mg/dL (>60 Neg Risk); LDL Cholesterol, Calculated 8 mg/dL; Potassium 3.5 mmol/L (3.5-5.1); Sodium 139 mmol/L (136-145); Triglycerides 86 mg/dL (Less than 150)
[2019-05-11 05:22] LABS: Troponin I Less than 0.010 ng/mL (< 0.028)
[2019-05-11 05:34] LABS: Band 36 % (5-11); Eosinophils 1 % (0-10); Hemoglobin 10.9 g/dL (14.0-18.0); Lymphocytes 4 % (21-51); MDiff Complete? YES; Mean Corpuscular HGB CONC 34.3 g/dL (32.0-36.0); Mean Corpuscular Hemoglobin 31.6 pg (27.0-31.0); Mean Corpuscular Volume 92.2 fL (78.0-98.0); Mean Platelet Volume 7.6 fL (7.4-10.4); Metamyelocyte 2 % (0-0); Monocytes 4 % (0-10); Neutrophil 53 % (42-75); Platelet Count 170 thou/uL (130-400); Platelet Morphology Comment Appears Adequate; Red Blood Cell (RBC) Count 3.44 mill/uL (4.70-6.10); White Blood Cell (WBC) Count 17.2 thou/uL (4.8-10.8)
[2019-05-11] MEDS ORDERED: SODIUM CHLORIDE 0.9% IVPB SCH (05:45)
[2019-05-11] MEDS ORDERED: VANCOMYCIN HCL IVPB SCH (05:45)
[2019-05-11] MEDS ORDERED: Vancomycin Sliding Scale 1 EACH FS ONE (06:00)
[2019-05-11] MEDS ORDERED: HOLD VANCOMYCIN FOR LEVEL >20 FS SCH (06:00)
[2019-05-11] MEDS ORDERED: Vancomycin HCl 250 MG in Sodium Chloride 0.9% 100 ML IVPB SCH (06:00)
[2019-05-11] MEDS ORDERED: Vancomycin HCl 750 MG in Sodium Chloride 0.9% 250 ML 250 ML IVPB SCH (06:00)
[2019-05-11] MEDS ORDERED: Piperacillin/Tazobactam 2.25 GM in Sodium Chloride 0.9% 100 ML IVPB SCH (06:00)
[2019-05-11] MEDS ORDERED: Vancomycin HCl 1 GM in Premix Bag 1 BAG IVPB SCH (06:00)
[2019-05-11] MEDS ORDERED: Vancomycin HCl 500 MG in Sodium Chloride 0.9% 100 ML IVPB SCH (06:00)
[2019-05-11 07:36] LABS: ALT (SGPT) 316 U/L (8-55); AST (SGOT) 360 U/L (5-34); Albumin 3.5 g/dL (3.4-4.8); Alkaline Phosphatase 80 U/L (40-150); Bilirubin, Direct 0.5 mg/dL (0.1-0.3); Bilirubin, Total 0.8 mg/dL (0.2-1.2); Protein, Total 6.3 g/dL (5.8-8.1)
[2019-05-11] MEDS: Piperacillin/Tazobactam 2.25 GM in Sodium Chloride 0.9% 100 ML IVPB SCH ×3 (08:40→23:41)
[2019-05-11] MEDS ORDERED: ADENOSINE 60 MG/20 ML VIAL ONE (09:53)
--- NOTE | 2019-05-11 11:10 | HP ---
HISTORY OF PRESENT ILLNESS: I have examined the patient. I have discussed the history and physical with Dr. Giselle Solares and agree with her assessment and plan. Mr. Isaiah Hoskins is a pleasant Azeri-speaking elderly gentleman, who presented to the emergency room after experiencing chest pain and hypertension while at dialysis. He was approximately 3 hours into a 4-hour treatment. Given he has numerous cardiac risk factors, he has been admitted for observation and stress testing. PHYSICAL EXAMINATION: VITAL SIGNS: Now stable. EAR, NOSE, AND THROAT: No erythema or exudate. NECK: Supple. CARDIAC: Heart rhythm, regular. No gallop or murmur. LUNGS: Diminished, but clear. No rales or wheezes. ABDOMEN: Flat, soft. NEUROLOGIC: No focal deficits. LABORATORY DATA: White count is 5200, hemoglobin 10.8, hematocrit 31.5, with an MCV of 92.8. Chemistry; sodium 139, potassium 3.5, chloride 98, bicarb 31, BUN 21, creatinine 4.40. Liver enzymes elevated with an AST of 360 and ALT of 316. His first troponin is less than 0.01. ASSESSMENT: 1. Chest pain. 2. Recent development of increased white count and elevated procalcitonin. PLAN: Stress testing. We will draw blood and urine cultures and begin broad-spectrum antibiotics pending further studies. Job ID: [id number]
--- NOTE | 2019-05-11 11:57 | PDOC.FM ---
- Subjective Subjective: Pt resting in bed. Pt denies any acute complaints at this time. Denies any acute events overnight. Pt denies any SOB or chest pain at this time. Pt had fever of 100.5 earlier this evening. Pt denies any n/v in the recent hours. - Objective MAR Reviewed: Yes Vital Signs & Weight: Vital Signs (12 hours) Temp Pulse Resp BP Pulse Ox 05/11/19 08:14 99.5 F 70 16 93/53 L 100 05/11/19 04:45 100.5 F H 72 20 91/51 L 99 05/11/19 00:36 99.1 F 72 16 94/56 L 99 05/10/19 23:59 99 Weight Weight 67.903 kg I&O: 05/10/19 05/11/19 05/12/19 06:59 06:59 06:59 Intake Total 200 Output Total 100 Balance 100 Result Diagrams: 05/11/19 04:43 05/11/19 04:43 EKG Reviewed by me: Yes (Sinus rhythm on tele monitor) Radiology Reviewed by me: Yes (no acute process) Phys Exam - Physical Examination Constitutional: NAD HEENT: PERRLA, moist MMs Neck: no nodes, supple, full ROM Respiratory: no wheezing, no rales, no rhonchi, clear to auscultation bilateral Cardiovascular: RRR, no significant murmur, no rub Gastrointestinal: soft, positive bowel sounds mildly tender to palpation Musculoskeletal: no edema, pulses present Neurological: non-focal, normal sensation Lymphatic: no nodes Psychiatric: normal affect, A&O x 3 Skin: no rash, normal turgor, cap refill <2 seconds Dx/Plan (1) Leukocytosis Code(s): D72.829 - ELEVATED WHITE BLOOD CELL COUNT, UNSPECIFIED Status: Acute (2) Chest pain, atypical Code(s): R07.89 - OTHER CHEST PAIN Status: Acute (3) Diabetes mellitus, type II Status: Acute (4) ESRD (end stage renal disease) Code(s): N18.6 - END STAGE RENAL DISEASE Status: Acute (5) HTN (hypertension) Code(s): I10 - ESSENTIAL (PRIMARY) HYPERTENSION Status: Acute (6) Transaminitis Code(s): R74.0 - NONSPEC ELEV OF LEVELS OF TRANSAMNS & LACTIC ACID DEHYDRGNSE Status: Acute - Plan Plan: Atypical chest pain * Heart score of 4. No cardiac workup documented. Will proceed with stress test today. * Recent A1c and lipid panel in clinic was WNL. * TSH WNL * Troponins trended negative x3 Luekocytosis -Pt had fever overnight, had N/V and hypotension. Pt also had elevated WBC and Procalcitonin today. -Blood and urine cx pending -Started on broad spectrum abx, Vanc and Zosyn -CXR negative -Possible source of infection could be cause of N/V and atypical chest pain. Pt reported he was on cipro for blood infection found at Dr. Giron office. Consulted Nephrology and will try and get records. Transaminitis -Liver enzymes elevated. -Hepatitis panel done in January 2019 negative for Hep C. Will check Hep A ab's at this time -Will get RUQ U/S to assess liver ESRD on hemodialysis * received adequate dialysis today, will resume schedule. * Will monitor with am labs. * Nephrology consulted- Dr. Farhana LEMA * stable, continue home medications HTN * restart home medications DMII * will continue home medications * Mod SS and Bedtime SS insulin * ACHS accuchecks
--- NOTE | 2019-05-11 14:41 | ULT ---
EXAM: US Gallbladder RUQ CLINICAL HISTORY: Elevated liver enzymes. Evaluate for infection.. COMPARISON: 04/06/2013 FINDINGS: Pancreas: Obscured by bowel gas. Liver:Normal cortical echotexture. No hepatic masses or intrahepatic biliary dilatation. Right hepati c lobe measures 15.0 cm Portal vein: Patent. Appropriate directional flow Gallbladder: Surgically absent Cifuentes's sign:Not applicable Bile ducts: Common bile duct diameter 0.64 cm Right kidney: Right kidney has a normal cortical echotexture. No cortical mass. Right kidney measures 10.8 x 5.1 x 5.3 cm in length. No hydronephrosis IMPRESSION: Unremarkable exam.
[2019-05-11] MEDS: Insulin Glargine 25 UNITS in Pre-Filled Syringe 1 EACH SC SCH (16:15)
[2019-05-11] MEDS: Carvedilol 6.25 MG TAB PO SCH ×2 (16:16→20:22)
[2019-05-11] MEDS: Calcitriol 0.25 MCG CAP PO SCH (16:16)
[2019-05-11] MEDS: Heparin 5,000 UNITS/ML VIAL SC SCH ×3 (16:16→20:22)
[2019-05-11] MEDS: cloNIDine 0.2 MG TAB PO SCH ×2 (16:16→20:23)
[2019-05-11] MEDS: Ferrous Sulfate 325 MG TAB PO SCH (16:17)
[2019-05-11] MEDS: Aspirin 81 mg Enteric Coated Tablet PO SCH (16:17)
[2019-05-11] MEDS: Amlodipine 10 MG TAB PO SCH (16:17)
--- NOTE | 2019-05-11 16:17 | NM ---
EXAM: NUCLEAR MEDICINE CARDIAC SPECT WITH EF AND WALL MOTION: 05/11/19 HISTORY: Chest pain, hypertension, diabetes mellitus, ESRD. This study was done with Adenosine protocol. The patient was injected with 28.8 millicuries Technetium 99m Sestamibi intravenously for stress imag es and patient was injected with 11.0 millicuries technetium 99m Sestamibi intravenously for resting images. Multiple SPECT images in the short axis, vertical long axis, and horizontal long axis demonstrates no evidence for infarct or ischemia. TID 1.06 LHR 0.44 EDV 88 mL Ejection fraction 69% MYOCARDIAL PERFUSION WALL MOTION: Wall motion study is normal. IMPRESSION: No significant abnormality. No scan evidence for infarct or ischemia or other acute process. POS: [facility]
[2019-05-11] MEDS: Atorvastatin Calcium 40 MG TAB PO SCH (20:22)
[2019-05-11] MEDS: Terazosin HCl 1 MG CAP PO SCH (20:23)
[2019-05-11] MEDS ORDERED: Losartan 25 MG TAB PO SCH (21:00)
--- NOTE | 2019-05-12 07:41 | PDOC.FM ---
- Subjective Subjective: Pt resting in bed at this time. Denies any acute events overnight. Denies any chest pain or SOB. Denies any n/v/d/c. No acute concerns from nursing at this time. - Objective MAR Reviewed: Yes Vital Signs & Weight: Vital Signs (12 hours) Temp Pulse Resp BP BP Pulse Ox 05/12/19 04:33 98.0 F 63 16 102/60 97 05/12/19 02:34 98 05/12/19 00:00 64 98/57 L 97 05/11/19 20:23 93/53 L 05/11/19 20:22 93/53 L 05/11/19 20:00 98.2 F 68 16 93/53 L 95 Weight Admit Weight 67.903 kg Weight 67.903 kg I&O: 05/11/19 05/12/19 05/13/19 06:59 06:59 06:59 Intake Total 200 Output Total 100 Balance 100 Result Diagrams: 05/11/19 04:43 05/11/19 04:43 EKG Reviewed by me: Yes (sinus rhythm) Radiology Reviewed by me: Yes (No acute events overnight. ) Phys Exam - Physical Examination Constitutional: NAD HEENT: PERRLA, moist MMs, oral pharynx no lesions Neck: no nodes, no JVD, supple, full ROM Respiratory: no wheezing, no rales, no rhonchi, clear to auscultation bilateral Cardiovascular: RRR, no significant murmur, no rub Gastrointestinal: soft, non-tender, no distention, positive bowel sounds Musculoskeletal: no edema, pulses present Neurological: non-focal, moves all 4 limbs Psychiatric: normal affect, A&O x 3 Skin: no rash, normal turgor, cap refill <2 seconds Dx/Plan (1) Leukocytosis Code(s): D72.829 - ELEVATED WHITE BLOOD CELL COUNT, UNSPECIFIED Status: Acute (2) Chest pain, atypical Code(s): R07.89 - OTHER CHEST PAIN Status: Acute (3) Diabetes mellitus, type II Status: Acute (4) ESRD (end stage renal disease) Code(s): N18.6 - END STAGE RENAL DISEASE Status: Acute (5) HTN (hypertension) Code(s): I10 - ESSENTIAL (PRIMARY) HYPERTENSION Status: Acute (6) Transaminitis Code(s): R74.0 - NONSPEC ELEV OF LEVELS OF TRANSAMNS & LACTIC ACID DEHYDRGNSE Status: Acute - Plan Plan: Luekocytosis -Pt WBC count elevated yesterday. Procalcitonin up trended yesterday. Awaiting repeat AM labs this morning. -Blood and urine cx pending -Started on broad spectrum abx, Vanc and Zosyn -CXR negative -Possible source of infection could be cause of N/V and atypical chest pain. Pt reported he was on cipro for blood infection found at Dr. Giron office. Consulted Nephrology and will try and get records. -May consider switching abx regimen if procal is still elevated. Transaminitis -Liver enzymes elevated. -Hepatitis panel done in January 2019 negative for Hep C. Will check Hep A ab's at this time -RUQ U/S shows no acute process. May consider getting CT scan. ESRD on hemodialysis * received adequate dialysis today, will resume schedule. * Will monitor with am labs. * Nephrology consulted- Dr. Delcid Atypical chest pain (Resolved) * Heart score of 4. No cardiac workup documented. Stress Test was negative * Recent A1c and lipid panel in clinic was WNL. * TSH WNL * Troponins trended negative x3 * Can transfer patient from tele. Chest pain likely above due to infectious process. HLD * stable, continue home medications HTN * Will hold home medications as hypotensive at this time. DMII * will continue home medications * Mod SS and Bedtime SS insulin * ACHS accuchecks
[2019-05-12 08:11] LABS: Band 16 % (5-11); Eosinophils 5 % (0-10); Hemoglobin 10.6 g/dL (14.0-18.0); Lymphocytes 14 % (21-51); MDiff Complete? YES; Mean Corpuscular HGB CONC 33.3 g/dL (32.0-36.0); Mean Corpuscular Hemoglobin 31.6 pg (27.0-31.0); Mean Corpuscular Volume 94.6 fL (78.0-98.0); Mean Platelet Volume 8.1 fL (7.4-10.4); Neutrophil 65 % (42-75); Platelet Count 184 thou/uL (130-400); RBC Distribution Width 14.1 % (11.5-14.5); Red Blood Cell (RBC) Count 3.37 mill/uL (4.70-6.10); White Blood Cell (WBC) Count 25.8 thou/uL (4.8-10.8)
[2019-05-12 08:12] LABS: ALT (SGPT) 154 U/L (8-55); AST (SGOT) 69 U/L (5-34); Albumin 3.3 g/dL (3.4-4.8); Alkaline Phosphatase 69 U/L (40-150); Anion Gap 13 mmol/L (10-20); BUN (Urea Nitrogen) 49 mg/dL (8.4-25.7); Bilirubin, Total 0.6 mg/dL (0.2-1.2); Calc. Creatinine Clearance 11 mL/min (70-130); Calcium 8.7 mg/dL (7.8-10.44); Carbon Dioxide 30 mmol/L (23-31); Chloride 96 mmol/L (98-107); Estimated GFR-MDRD 9; Globulin 2.7 g/dL (2.4-3.5); Glucose 89 mg/dL (80-115); Potassium 4.2 mmol/L (3.5-5.1); Sodium 135 mmol/L (136-145)
[2019-05-12] MEDS: Carvedilol 6.25 MG TAB PO SCH (09:01)
[2019-05-12] MEDS: Ferrous Sulfate 325 MG TAB PO SCH (09:01)
[2019-05-12] MEDS: Calcitriol 0.25 MCG CAP PO SCH (09:01)
[2019-05-12] MEDS: Piperacillin/Tazobactam 2.25 GM in Sodium Chloride 0.9% 100 ML IVPB SCH (09:01)
[2019-05-12] MEDS: Aspirin 81 mg Enteric Coated Tablet PO SCH (09:01)
[2019-05-12] MEDS: Heparin 5,000 UNITS/ML VIAL SC SCH ×3 (09:02→20:34)
[2019-05-12] MEDS: cloNIDine 0.2 MG TAB PO SCH (09:03)
[2019-05-12] MEDS: Amlodipine 10 MG TAB PO SCH (09:03)
[2019-05-12] MEDS: Insulin Glargine 25 UNITS in Pre-Filled Syringe 1 EACH SC SCH (09:11)
[2019-05-12] MEDS ORDERED: Meropenem 0.5 GM in Sodium Chloride 0.9% 100 ML IVPB SCH (11:00)
--- NOTE | 2019-05-12 11:11 | PRG ---
DATE OF SERVICE: 05/12/2019 Mr. Isaiah Hoskins offers no complaints this morning. In fact, he looks quite comfortable, in no distress. His white count continues to elevate as does his procalcitonin. Blood and urine cultures are so far negative. His chest x-ray does not show pneumonia. His abdomen is completely flat, benign, soft without guarding or rebound. Clinically, he does not look ill and certainly does not look septic. I examined his skin carefully and he has no cuts or abrasions or an affected areas or no evidence of any cellulitis. We will continue broad-spectrum antibiotics and order an echocardiogram. We will consult also with Dr. Mckeon. Job ID: [id number]
[2019-05-12] MEDS: Meropenem 500 MG in Sodium Chloride 0.9% 100 ML IVPB SCH ×2 (12:20→22:17)
--- NOTE | 2019-05-12 12:44 | CON ---
DATE OF CONSULTATION: HISTORY OF PRESENT ILLNESS: Mr. Hoskins is a 69-year-old male with history of ESRD and was admitted for chest pain. He had a stress test done, which showed no active ischemia. There was also an issue of a fever with this patient. Blood cultures have so far been negative. In the outpatient setting, this patient has been receiving Cipro for a presumptive UTI at one time. No other complaints today. He tells me he is feeling better. We are being consulted for maintenance hemodialysis with this patient. REVIEW OF SYSTEMS: No chest pain or shortness of breath. No nausea. No vomiting. Appetite and energy level are fair. No headache. No diplopia. No syncopal episode. No productive cough. No diarrhea. No dysuria. No abdominal pain. Appetite and energy level are fair. Occasional joint pains. No new skin rash. MEDICATIONS: The patient is currently on the followin. Acetaminophen 650 mg q.4 p.r.n. 2. Amlodipine 10 mg tablet daily. 3. Aspirin 81 mg tablet once a day. 4. Atorvastatin 40 mg tablet at bedtime. 5. Calcitriol 0.25 mcg daily. 6. Carvedilol 12.5 mg p.o. b.i.d. 7. Clonidine 0.2 mg b.i.d. 8. Epogen 7500 units subcu q.7 days. 9. Ferrous sulfate 325 mg q.a.m. 10. Humalog sliding scale. 11. Heparin 5000 units subcu t.i.d. 12. Losartan 50 mg at bedtime. 13. Insulin glargine 25 units daily. 14. Meropenem 500 mg IV q.12. 15. Nitroglycerin p.r.n. 16. Zofran p.r.n. 17. Terazosin 2 mg at bedtime. 18. Sertraline 50 mg at bedtime. PAST MEDICAL HISTORY: 1. ESRD secondary to presumed diabetic nephropathy. 2. Type 2 diabetes mellitus. 3. Longstanding hypertension. 4. Hyperlipidemia. 5. Secondary hyperparathyroidism. 6. History of depression. 7. Diabetic nephropathy. PAST SURGICAL HISTORY: Status post AV fistula placement, status post AV fistulogram, status post cuffed hemodialysis catheter placement, status post laparoscopic cholecystectomy, status post cholangiogram, and status post upper GI endoscopy. SOCIAL HISTORY: The patient lives in [place]. He is . He has five children. Originally from [place]. Education tenth grade in [place]. No IV drug abuse. He is a retired construction tech. No blood transfusion. No history of smoking. No alcohol intake. ALLERGIES: NONE. TRAUMA: None. IMMUNIZATION: Up-to-date. HOSPITALIZATIONS: Please see past medical history. FAMILY HISTORY: No family history of ESRD. PHYSICAL EXAMINATION: VITAL SIGNS: Blood pressure 93/53, heart rate 63, respiratory rate 16, temperature 98, and pulse ox 97%. GENERAL: Noted to be awake, alert, and comfortable, not in overt distress. SKIN: Adequate turgor. HEENT: He has a slightly pale conjunctivae. Anicteric sclerae. NECK: No neck mass. No carotid bruits. No JVD. CHEST: No deformities. LUNGS: Clear breath sounds. No wheezing. No crackles. HEART: Normal sinus rhythm. No murmurs. No gallops. No rubs. ABDOMEN: Globular, soft, and nontender. No masses. EXTREMITIES: No edema. No deformities. NEUROLOGIC: Awake and oriented to 3 spheres. Moving all extremities. No tremors. No asterixis. No ataxia. LABORATORY DATA: Laboratories of May 12, 2019, white count 25.8 and hemoglobin 10.6. Sodium 135, potassium 4.2, chloride 96, carbon dioxide 30, BUN 49, creatinine 6.52, AST 69, ALT 154, and albumin 3.3. Urine and blood culture, no growth to-date. ASSESSMENT AND PLAN: 1. Fever on empiric IV antibiotics. Currently, on meropenem. 2. End-stage renal disease, stable. We will continue current hemodialysis regimen. Review of his last Kt/V suggests he is adequately dialyzed with the current dialysis regimen. 3. Anemia. Continuing weekly Epogen. Overall, agree with current management. Recheck basic metabolic and CBC in a.m. Job ID: [id number]
[2019-05-12 16:10] LABS: Bacteria/HPF None Seen HPF (None Seen); Bilirubin Negative (Negative); Blood, Urine 3+ (Negative); Calcium Oxalate Crystals Rare HPF (None Seen); Clarity Clear (Clear); Glucose, Urine (Dipstick) 70 mg/dL (Negative); Leukocyte Negative Leu/uL (Negative); Nitrite Negative (Negative); Protein, Urine (Dipstick) 300 mg/dL (Neg-Trace); RBC/HPF Greater than 50 HPF (0-3); Squamous Epithelial None Seen HPF (0-3); Urobilinogen Normal mg/dL (Less than 2)
[2019-05-12 16:13] LABS: Urine Culture Reflex Yes Yes
[2019-05-12] MEDS: Terazosin HCl 1 MG CAP PO SCH (20:33)
[2019-05-12] MEDS: Atorvastatin Calcium 40 MG TAB PO SCH (20:33)
[2019-05-13 05:50] LABS: Anion Gap 12 mmol/L (10-20); BUN (Urea Nitrogen) 60 mg/dL (8.4-25.7); Calc. Creatinine Clearance 10 mL/min (70-130); Calcium 8.5 mg/dL (7.8-10.44); Carbon Dioxide 30 mmol/L (23-31); Chloride 98 mmol/L (98-107); Estimated GFR-MDRD 8; Glucose 86 mg/dL (80-115); Potassium 4.4 mmol/L (3.5-5.1); Sodium 136 mmol/L (136-145)
--- NOTE | 2019-05-13 06:20 | PDOC.FM ---
- Subjective Subjective: Pt is doing well this morning, no concerns or complaints. States he slept well, no acute events overnight. He denies any Cp, SOB, n/v/d/c, fever/chills. No known history of significant infections including bacteremia, TB, fungal, or parasitic that he is aware no. No recent travel outside the [facility] or community health. No history of known hepatitis. Does report slight burning with urination since in- out catheter at admission, otherwise no pains. - Objective MAR Reviewed: Yes Vital Signs & Weight: Vital Signs (12 hours) Temp Pulse Resp BP Pulse Ox 05/13/19 03:25 98.9 F 62 16 120/71 05/13/19 02:20 100 05/12/19 20:00 98.0 F 62 16 120/69 98 Weight Admit Weight 67.903 kg Weight 67.903 kg I&O: 05/11/19 05/12/19 05/13/19 06:59 06:59 06:59 Intake Total 200 560 Output Total 100 240 Balance 100 320 Result Diagrams: 05/13/19 04:50 05/13/19 04:50 EKG Reviewed by me: Yes (Tele: NSR 60s) Phys Exam - Physical Examination Constitutional: NAD HEENT: moist MMs Neck: supple Respiratory: no wheezing, no rales, no rhonchi, clear to auscultation bilateral Cardiovascular: RRR, no significant murmur, no rub Gastrointestinal: soft, non-tender, no distention, positive bowel sounds Musculoskeletal: no edema Neurological: moves all 4 limbs Psychiatric: normal affect Dx/Plan (1) Acute kidney injury superimposed on CKD Code(s): N17.9 - ACUTE KIDNEY FAILURE, UNSPECIFIED; N18.9 - CHRONIC KIDNEY DISEASE, UNSPECIFIED Status: Acute (2) Chest pain, atypical Code(s): R07.89 - OTHER CHEST PAIN Status: Acute (3) Diabetes mellitus, type II Status: Chronic (4) ESRD (end stage renal disease) Code(s): N18.6 - END STAGE RENAL DISEASE Status: Chronic (5) HTN (hypertension) Code(s): I10 - ESSENTIAL (PRIMARY) HYPERTENSION Status: Chronic (6) Leukocytosis Code(s): D72.829 - ELEVATED WHITE BLOOD CELL COUNT, UNSPECIFIED Status: Acute Qualifiers: Leukocytosis type: eosinophilia Qualified Code(s): D72.1 - Eosinophilia (7) Transaminitis Code(s): R74.0 - NONSPEC ELEV OF LEVELS OF TRANSAMNS & LACTIC ACID DEHYDRGNSE Status: Acute - Plan Plan: 69yo male with h/o ESRD on HD, DMII presents with atypical chest pain, found to have eosinophilic leukocytosis 1. Eosinophilic Leukocytosis - WBC 25.8 -> 18.9. Procal 130 ->98 - BCx and UCx NGTD, continue to monitor - On Meropenem, day 2. Initially on Vanc and Zosyn but had continued increase in WBC and procal. - CXR negative - VSS, afebrile since admission. Asx. - Possible source of infection could be cause of N/V and atypical chest pain. Pt reported he was on cipro for blood infection found at Dr. Giron office. Consulted Nephrology and will try and get records. - Echo demonstrated thickening aortic valve, recommended FARHAD for further eval. Consulted Cards, Dr. Garrido, apprec recs - Will consult Dr. Mckeon, ID, appreciate recs 2. Transaminitis - Liver enzymes initially elevated, trended down - Hepatitis panel in January 2019 negative for Hep C. Hep A Pending. - RUQ U/S shows no acute process. No abd sxs. Consider further abd imaging. 3. ESRD on hemodialysis - Nephrology consulted, Dr. Delcid and Dr. Hernandez, rec continued dialysis as scheduled with weekly epogen, appreciate recs - Monitor AM labs 4. Atypical chest pain (Resolved) - Heart score of 4. No cardiac workup documented. Trops and Stress Test was negative - Recent A1c and lipid panel in clinic was WNL. TSH WNL. - Can transfer patient from tele. Chest pain likely above due to infectious process. Echo report as above. 5. HLD - stable, continue home medications 6. HTN - Will hold home medications as BP stable at 120/70 at this time 7. DMII - Continue home medications. Mod SS with bedtime SS insulin. ACHS accuchecks. Dispo: Pending further workup and clinical status. Anticipate hospitalization 3- 4 days. Addendum - Attending - Attending Attestation Date/Time: 05/13/192057 I personally evaluated the patient and discussed the management with Dr. Vargas Rogers at 1035 am. I agree with the History, Examination, Assessment and Plan documented above with any addition or exceptions noted below. Fever without a source- leukocytosis and severely elevated procalcitonin- on meropenem and vanc. Blood cx, UA, CXR neg. Dialysis catheter is clean without erythema. TTE shows some aortic valve thickening but no obvious vegetation- recommendation for FARHAD to r/o vegetation. Appreciate ID recs ESRD- diaylsis per Dr. Hernandez. chest pain- NC ruled out with neg trops and neg stress Anemia of chronic dz- continue epogen
[2019-05-13 07:42] LABS: Hemoglobin 9.9 g/dL (14.0-18.0); Mean Corpuscular Hemoglobin 31.2 pg (27.0-31.0); Mean Corpuscular Volume 94.6 fL (78.0-98.0); Mean Platelet Volume 8.9 fL (7.4-10.4); Platelet Count 196 thou/uL (130-400); RBC Distribution Width 13.9 % (11.5-14.5); Red Blood Cell (RBC) Count 3.18 mill/uL (4.70-6.10); White Blood Cell (WBC) Count 19.2 thou/uL (4.8-10.8)
[2019-05-13 07:54] LABS: Band 14 % (5-11); Eosinophils 9 % (0-10); Lymphocytes 13 % (21-51); MDiff Complete? YES; Monocytes 2 % (0-10); Neutrophil 62 % (42-75); Platelet Morphology Comment Appears Adequate; Polychromasia SLIGHT = 2-3 cells (100X) (0-2/hpf)
[2019-05-13] MEDS: Insulin Glargine 25 UNITS in Pre-Filled Syringe 1 EACH SC SCH (08:38)
[2019-05-13] MEDS: Heparin 5,000 UNITS/ML VIAL SC SCH ×2 (08:41→15:30)
--- NOTE | 2019-05-13 09:46 | PRG ---
DATE OF SERVICE: 05/13/2019 SUBJECTIVE: Mr. Betts is a 69-year-old male with ESRD and currently on maintenance hemodialysis. He was initially admitted for chest pain, but the stress test showed no active ischemia. He has also had intermittent fever and is currently being treated for this. His blood culture and urine show no growth to date. Blood culture has also been negative. He voices no new complaints. He is feeling better this morning. He denies any chest pain or shortness of breath. OBJECTIVE: VITAL SIGNS: Blood pressure 122/73, heart rate 61, respiratory rate 16, temperature 98.4, and pulse ox 96%. GENERAL: Awake, alert, comfortable, not in distress. SKIN: Adequate turgor. HEENT: Slightly pale conjunctivae. Anicteric sclerae. NECK: No neck mass. No carotid bruits. No JVD. CHEST: No deformities. LUNGS: Clear breath sounds. HEART: Normal sinus rhythm. No murmurs. No gallops. No rubs. ABDOMEN: Globular, soft, and nontender. No masses. EXTREMITIES: No edema. No deformities. MEDICATIONS: Medications of May 13, 2019, were reviewed. LABORATORY DATA: Laboratories of May 13, 2019: White count 19.2, hemoglobin 9.9. Sodium 136, potassium 4.4, chloride 98, carbon dioxide 30, BUN 60, creatinine 7.14, glucose 86, and calcium 8.5. Procalcitonin is 98.2 ? ASSESSMENT AND PLAN: 1. Fever. The patient is currently on empiric IV antibiotics. He is currently on meropenem. 2. Cultures have, so far, been negative. 3. End-stage renal disease, stable. We will continue current hemodialysis regimen on Monday, Monday, and Monday. He is due for 3-1/2-hour dialysis. We will max out fluid removal as tolerated. 4. Anemia. Continue current weekly Epogen. 5. Overall agree with current management. Job ID: [id number]
[2019-05-13] MEDS ORDERED: Heparin 10,000 UNITS/ 10 ML VIAL ONE (11:11)
[2019-05-13] MEDS: Meropenem 500 MG in Sodium Chloride 0.9% 100 ML IVPB SCH ×2 (13:51→15:24)
[2019-05-13] MEDS: Ferrous Sulfate 325 MG TAB PO SCH (19:05)
[2019-05-13] MEDS: Calcitriol 0.25 MCG CAP PO SCH (19:05)
[2019-05-13] MEDS: Aspirin 81 mg Enteric Coated Tablet PO SCH (19:05)
[2019-05-13 19:21] LABS: HBSAg Index 0.36 S/CO (0-0.99); Hep B Surf Ag Non-Reactive S/CO (NonReactive)
[2019-05-13] MEDS: Terazosin HCl 1 MG CAP PO SCH (20:23)
[2019-05-13] MEDS: Atorvastatin Calcium 40 MG TAB PO SCH (20:23)
[2019-05-14] MEDS: Meropenem 500 MG in Sodium Chloride 0.9% 100 ML IVPB SCH ×3 (00:03→22:07)
--- NOTE | 2019-05-14 00:16 | CON ---
DATE OF CONSULTATION: REASON FOR CONSULTATION: Fever. HISTORY OF PRESENT ILLNESS: A 69-year-old with history of end-stage renal disease secondary to type 2 diabetes mellitus. He is dialyzed through an AV fistula and developed fever during the performance of dialysis. Apparently had a previous treatment for blood stream infection completed with ciprofloxacin recently. Currently, Mr. Colon has been dialyzed. He denies any headaches. No sore throat, odynophagia, or dysphagia. No back pain. No dyspnea or cough. No sputum production. No abdominal pain or diarrhea. No genitourinary symptoms. PAST MEDICAL HISTORY: Type 2 diabetes, end-stage renal disease, AV fistula placement, and hypertension. PAST SURGICAL HISTORY: Cholecystectomy, IJ central line, AV fistula. The patient has a tunneled catheter in the right IJ position. FAMILY HISTORY: Noncontributory. SOCIAL HISTORY: Never smoker. Drinks occasionally. CURRENT MEDICATIONS: 1. Tylenol. 2. Ecotrin. 3. Lipitor. 4. Rocaltrol. 5. Tums. 6. Dextrose. 7. Epoetin. 8. Feosol. 9. Glucagon. 10. Insulin. 11. Meropenem. 12. Terazosin. PHYSICAL EXAMINATION: VITAL SIGNS: T-max 100.5. His blood pressure is 122/73, pulse 61, respirations 16, and O2 saturation 96%. GENERAL: Appears in no distress, being dialyzed at the moment. He is oriented. SKIN: Not remarkable. He has a catheter in the right IJ position. LUNGS: Symmetric, clear breath sounds. HEART: S1 and S2, regular rate without murmurs. ABDOMEN: Soft, not distended or tender. No ascites. No bladder distention. No genital abnormalities. He is able to move all 4 extremities. LABORATORY DATA: White cell count 19.2, hemoglobin 9.9, platelets 196 with 14% bands. Chemistry is not particularly remarkable. Liver profile was normal. Urinalysis with 4 to 6 wbc's. Urine culture, no growth at 12 hours. Blood culture, no growth at 48 hours. Echocardiogram with no regurgitation or stenosis, thickened aortic valve. ASSESSMENT: End-stage renal disease, type 2 diabetes, who has a tunneled catheter in the right IJ position and now has developed fever which started at dialysis. Apparently had been treated recently for some sort of blood stream infection which must have been diagnosed at dialysis. We will have to contact Dr. Hernandez regarding that. Now, he is readmitted with fever. DISCUSSION: The differential diagnosis includes bacteremia with colonization of the hemodialysis catheter by the same organism that has been retrieved recently. This will require us to contact his dialytic area to inquire about the nature of the organism. If the blood cultures turn positive here and coincides with the organisms retrieved previously, then he will need removal of an exchange of the catheter. Ideally, one would like to switch him to an AV fistula approach for dialysis. Other sites of involvement including the possibility of endocarditis, lung, abdomen, and pelvis inflammatory process and spine and long bones appear to be less likely. Job ID: [id number]
--- NOTE | 2019-05-14 06:43 | PDOC.FM ---
- Subjective Subjective: Pt doing well this morning. No acute events overnight. No concerns or complaints. No fevers/chills, n/v/d/c, CP, SOB, or pain of any kind. He was resting comfortably in bed upon exam. - Objective MAR Reviewed: Yes Vital Signs & Weight: Vital Signs (12 hours) Temp Pulse Resp BP Pulse Ox 05/14/19 03:35 98 F 62 16 113/64 94 L 05/14/19 00:00 70 16 97 05/13/19 20:00 98.2 F 73 16 111/56 L 98 Weight Admit Weight 67.903 kg Weight 67.903 kg I&O: 05/12/19 05/13/19 05/14/19 06:59 06:59 06:59 Intake Total 560 720 Output Total 240 4000 Balance 320 -3280 Result Diagrams: 05/14/19 06:54 05/14/19 06:54 Phys Exam - Physical Examination Constitutional: NAD HEENT: moist MMs Neck: supple Respiratory: no wheezing, no rales, no rhonchi, clear to auscultation bilateral Cardiovascular: RRR, no significant murmur, no rub Gastrointestinal: soft, non-tender, no distention, positive bowel sounds Musculoskeletal: no edema, pulses present Neurological: non-focal Psychiatric: A&O x 3 Dx/Plan (1) Acute kidney injury superimposed on CKD Code(s): N17.9 - ACUTE KIDNEY FAILURE, UNSPECIFIED; N18.9 - CHRONIC KIDNEY DISEASE, UNSPECIFIED Status: Resolved (2) Chest pain, atypical Code(s): R07.89 - OTHER CHEST PAIN Status: Resolved (3) Diabetes mellitus, type II Status: Chronic (4) ESRD (end stage renal disease) Code(s): N18.6 - END STAGE RENAL DISEASE Status: Chronic (5) HTN (hypertension) Code(s): I10 - ESSENTIAL (PRIMARY) HYPERTENSION Status: Chronic (6) Leukocytosis Code(s): D72.829 - ELEVATED WHITE BLOOD CELL COUNT, UNSPECIFIED Status: Acute Qualifiers: Leukocytosis type: eosinophilia Qualified Code(s): D72.1 - Eosinophilia (7) Transaminitis Code(s): R74.0 - NONSPEC ELEV OF LEVELS OF TRANSAMNS & LACTIC ACID DEHYDRGNSE Status: Acute - Plan Plan: 69yo male with h/o ESRD on HD, DMII presents with atypical chest pain, found to have eosinophilic leukocytosis 1. Eosinophilic Leukocytosis - WBC 25.8 -> 17. Procal 130 ->98. Will recheck Procal this AM. - BCx and UCx NGTD, continue to monitor - On Meropenem, day 3. Initially on Vanc and Zosyn but had continued increase in WBC and procal. - CXR negative. VSS, afebrile since admission. Asx. - Spoke with Dr. Hernandez, does not recall any catheter site infections and states he they had, they would have continued abx and replaced the cath - Echo demonstrated thickening aortic valve, recommended possible FARHAD for further eval. Consulted Cards, Dr. Garrido, will undergo FARHAD at this time as all other sources of infection have bee ruled out. Appreciate recs. - ID, Dr. Mckeon, consulted, suggested obtaining records for prior dialysis catheter infection vs endocarditis vs other source, Will obtain FARHAD, appreciate recs. 2. Transaminitis, resolved - Liver enzymes initially elevated, trended down - Hepatitis panel in January 2019 negative for Hep C. Hep B neg. - RUQ U/S shows no acute process. No abd sxs. 3. ESRD on hemodialysis - Nephrology consulted, Dr. Delcid and Dr. Hernandez, rec continued dialysis as scheduled with weekly epogen, appreciate recs - Monitor AM labs 4. Atypical chest pain (Resolved) - Trops and Stress Test was negative Recent A1c and lipid panel in clinic was WNL. TSH WNL. - Can transfer patient from tele once bed available. 5. HLD - stable, continue home medications 6. HTN - Will hold home medications as BP stable at 120s/70s at this time 7. DMII - Continue home medications. Mod SS with bedtime SS insulin. ACHS accuchecks. Dispo: Pending records from dialysis, FARHAD and [facility] abx plan. Anticipate hospitalization 3-4 days. Addendum - Attending - Attending Attestation Date/Time: 05/14/192124 I personally evaluated the patient and discussed the management with Dr. Vargas Rogers at 1025 am. I agree with the History, Examination, Assessment and Plan documented above with any addition or exceptions noted below. Fever with unknown source with leukocytosis and severely elevated procalcitonin - on meropenem and no recurrence of fever and downtrending procal and wbc count. Appreciate Dr. Linda forrester. FARHAD today. ESRD- dialysis per nephro.
[2019-05-14 07:26] LABS: #Basophils 0.1 thou/uL (0.0-0.2); #Eosinphils 1.3 thou/uL (0.0-0.7); #Lymphocytes 2.3 thou/uL (1.20-3.40); #Monocytes 0.9 thou/uL (0.11-0.59); #Neutrophils 13.1 thou/uL (1.40-6.50); %Basophils 0.5 % (0.0-1.0); %Eosinophils 7.4 % (0.0-10.0); %Monocytes 4.9 % (0.0-10.0); %Neutrophils 74.2 % (42.0-75.0); Hemoglobin 10.4 g/dL (14.0-18.0); Mean Corpuscular HGB CONC 34.4 g/dL (32.0-36.0); Mean Corpuscular Hemoglobin 31.9 pg (27.0-31.0); Mean Corpuscular Volume 92.8 fL (78.0-98.0); Mean Platelet Volume 8.5 fL (7.4-10.4); Platelet Count 191 thou/uL (130-400); Red Blood Cell (RBC) Count 3.26 mill/uL (4.70-6.10); White Blood Cell (WBC) Count 17.7 thou/uL (4.8-10.8)
[2019-05-14 07:49] LABS: Anion Gap 14 mmol/L (10-20); BUN (Urea Nitrogen) 32 mg/dL (8.4-25.7); Calc. Creatinine Clearance 14 mL/min (70-130); Calcium 8.7 mg/dL (7.8-10.44); Carbon Dioxide 26 mmol/L (23-31); Chloride 98 mmol/L (98-107); Estimated GFR-MDRD 12; Glucose 76 mg/dL (80-115); Potassium 4.7 mmol/L (3.5-5.1); Sodium 133 mmol/L (136-145)
--- NOTE | 2019-05-14 09:30 | PRG ---
DATE OF SERVICE: 05/14/2019 SUBJECTIVE: Mr. Isaiah Hoskins is a 69-year-old male, who initially came with chest pain. He also developed fever at that time. He was ruled out for [place]. Cardiac stress test was negative. An ID consult has been done regarding his fever. He is on empiric IV antibiotics. The plan is to consider a FARHAD with him. OBJECTIVE: VITAL SIGNS: Blood pressure 131/76, heart rate 61, respiratory rate 19, temperature 99.5, and pulse ox 96%. GENERAL: Noted to be awake, alert, comfortable, not in distress. SKIN: Adequate turgor. HEENT: Pinkish conjunctivae. Anicteric sclerae. NECK: No neck mass. No carotid bruits. No JVD. CHEST: No deformities. LUNGS: Clear breath sounds. HEART: Normal sinus rhythm. No murmurs, no gallops, no rubs. ABDOMEN: Globular, soft, nontender. No masses. EXTREMITIES: No edema. No deformities. MEDICATIONS: Medications of May 14, 2019, were reviewed. LABORATORY DATA: Laboratories of May 14, 2019; white count 17.7, hemoglobin 10.4. Sodium 133, potassium 4.7, chloride 98, carbon dioxide 26, BUN 32, creatinine 4.82, glucose 76, calcium 8.7. ASSESSMENT AND PLAN: 1. End-stage renal disease, stable, tolerating current hemodialysis regimen. Fluid removal was tolerated by the patient. We will continue his current Monday, Monday, and Monday dialysis. 2. Anemia-continuing weekly Epogen. H and H are noted to be stable. 3. Fever-so far blood and urine culture negative. ID consult following. Possibility of a FARHAD. Job ID: [id number]
[2019-05-14] MEDS: Insulin Glargine 25 UNITS in Pre-Filled Syringe 1 EACH SC SCH (09:32)
[2019-05-14] MEDS: Ferrous Sulfate 325 MG TAB PO SCH (09:33)
[2019-05-14] MEDS: Aspirin 81 mg Enteric Coated Tablet PO SCH (09:33)
[2019-05-14] MEDS: Calcitriol 0.25 MCG CAP PO SCH (09:33)
[2019-05-14] MEDS ORDERED: PROPOFOL 20 ML ONE (12:52)
--- NOTE | 2019-05-14 13:31 | CON ---
DATE OF CONSULTATION: REASON FOR CONSULTATION: Endocarditis. HISTORY OF PRESENT ILLNESS: Mr. Colon is a 69-year-old gentleman with history of end-stage renal disease, who recently presented with fever and elevated white count. He has not had previous line present. He has no previous history of underlying coronary artery disease. No previous history of endocarditis. He has had AV fistula. He has been treated with antibiotics in the past. PAST MEDICAL HISTORY: As above including diabetes mellitus, hypertension, cholecystectomy, IJ placement, AV fistula. FAMILY HISTORY: Negative. SOCIAL HISTORY: No current tobacco or alcohol use. HOME MEDICATIONS: Include: 1. Lipitor. 2. Aspirin. 3. Tylenol. 4. Rocaltrol. 5. Tums. 6. Dextrose. 7. Iron. 8. Glucagon. 9. Insulin. 10. Terazosin. REVIEW OF SYSTEMS: A 10-point review of systems is reviewed as above, otherwise negative. PHYSICAL EXAMINATION: GENERAL: Patient is a pleasant male who is in no acute distress. The patient appears their stated age. VITAL SIGNS: Blood pressure 142/76, pulse 59, temperature 97.8. NEUROLOGIC: The patient is alert and oriented x3 with no focal neurologic deficits. HEENT: Sclerae without icterus. Mouth has moist mucous membranes with normal pallor. NECK: No JVD. Carotid upstroke brisk. No bruits bilaterally. LUNGS: Clear to auscultation with unlabored respirations. BACK: No scoliosis or kyphosis. CARDIAC: Regular rate and rhythm with normal S1 and S2. No S3 or S4 noted. No significant rubs, murmurs, thrills, or gallops noted throughout the precordium. PMI is not displaced. There is no parasternal heave. ABDOMEN: Soft, nontender, nondistended. No peritoneal signs present. No hepatosplenomegaly. No abnormal striae. EXTREMITIES: 2+ femoral and 2+ dorsalis pedis pulses. No cyanosis, clubbing, or edema. SKIN: No gross abnormalities. PERTINENT LABORATORY DATA: White blood cell count 17,000, hemoglobin 10.4. Echo with Doppler showed normal LVEF with aortic valve sclerosis, cannot exclude endocarditis. IMPRESSION: 1. Recurrent fever. 2. End-stage renal disease. RECOMMENDATIONS: Certainly, this appears reasonable after the patient being assessed by Dr. Mckeon to assess for endocarditis. I discussed proceeding in full detail with Mr. Colon risks included, not limited to the following: Damage to teeth, mouth, back of throat, damage to the esophagus. All questions were answered. Given the above, the patient agreed to proceed with above procedure. Further recommendations pending above. Job ID: [id number]
--- NOTE | 2019-05-14 16:37 | OP ---
DATE OF PROCEDURE: 05/14/2019 PREOPERATIVE DIAGNOSIS: Endocarditis. POSTOPERATIVE DIAGNOSIS: Endocarditis. PROCEDURE: FARHAD. DESCRIPTION OF PROCEDURE: The patient was consented for the procedure. All questions were answered. Conscious sedation was performed with propofol. The probe passed easily into the esophagus. FINDINGS: Overall LVEF appears normal. The mitral valve has 2 leaflets. There is normal excursion. No masses or vegetation present on the mitral valve. The left atrium is well visualized. No mass or vegetation present. The aortic valve is also well visualized. I cannot completely exclude a very small vegetation present on the LVOT side of the aortic valve. Too small to quantify on which cusp. The tricuspid valve and pulmonic valve, no mass or vegetation present. IMPRESSION: Cannot completely exclude a very small vegetation present on the aortic valve. Job ID: [id number]
[2019-05-14] MEDS: Terazosin HCl 1 MG CAP PO SCH (22:07)
[2019-05-14] MEDS: Atorvastatin Calcium 40 MG TAB PO SCH (22:08)
--- NOTE | 2019-05-15 06:30 | PDOC.FM ---
- Subjective Subjective: Doing well this morning, no concerns or complaints. No acute events overnight. No fever/chills, n/v/d/c, pains, sob. Spoke with and they are both eagerly awaiting treatment plan and disposition. - Objective MAR Reviewed: Yes Vital Signs & Weight: Vital Signs (12 hours) Temp Pulse Resp BP BP Pulse Ox 05/15/19 04:25 97.9 F 61 18 151/79 H 94 L 05/15/19 00:25 98 F 65 20 143/74 H 97 05/14/19 20:00 100.0 F H 65 16 130/73 94 L Weight Admit Weight 67.903 kg Weight 67.903 kg I&O: 05/13/19 05/14/19 05/15/19 06:59 06:59 06:59 Intake Total 560 870 480 Output Total 240 4100 240 Balance 320 -3230 240 Result Diagrams: 05/15/19 09:03 05/14/19 06:54 Phys Exam - Physical Examination Constitutional: NAD HEENT: moist MMs Neck: supple Respiratory: no wheezing, no rales, no rhonchi, clear to auscultation bilateral Cardiovascular: RRR, no significant murmur, no rub Gastrointestinal: soft, non-tender, no distention, positive bowel sounds Musculoskeletal: no edema Dx/Plan (1) Diabetes mellitus, type II Status: Chronic (2) ESRD (end stage renal disease) Code(s): N18.6 - END STAGE RENAL DISEASE Status: Chronic (3) HTN (hypertension) Code(s): I10 - ESSENTIAL (PRIMARY) HYPERTENSION Status: Chronic (4) Leukocytosis Code(s): D72.829 - ELEVATED WHITE BLOOD CELL COUNT, UNSPECIFIED Status: Acute Qualifiers: Leukocytosis type: eosinophilia Qualified Code(s): D72.1 - Eosinophilia (5) Transaminitis Code(s): R74.0 - NONSPEC ELEV OF LEVELS OF TRANSAMNS & LACTIC ACID DEHYDRGNSE Status: Acute - Plan Plan: 69yo male with h/o ESRD on HD, DMII presents with atypical chest pain, found to have eosinophilic leukocytosis 1. Eosinophilic Leukocytosis - WBC 25.8 -> 17. Procal 130 ->98 -> 77. BCx and UCx NGTD, continue to monitor. CBC pending this AM. - On Meropenem, day 4. Initially on Vanc and Zosyn but had continued increase in WBC and procal. - CXR negative. VSS, afebrile since admission. Asx. - Spoke with Dr. Hernandez, no known history of dialysis cath infx. - FARHAD - cannot exclude very small veg on aortic valve - ID, Dr. Mckeon, consulted, will contact regard abx recs after FARHAD results, appreciate assistance 2. Transaminitis, resolved - Liver enzymes initially elevated, trended down - Hepatitis panel in January 2019 negative for Hep C. Hep B neg. Hep A ab positive , Hep A IgM negative - previous infection but not active - RUQ U/S shows no acute process. No abd sxs. 3. ESRD on hemodialysis - Nephrology consulted, Dr. Delcid and Dr. Hernandez, rec continued dialysis as scheduled with weekly epogen, appreciate recs 4. Atypical chest pain (Resolved) - Trops and Stress Test was negative. Recent A1c and lipid panel in clinic was WNL. TSH WNL. 5. HLD - stable, continue home medications 6. HTN - BP stable 130s/70s to 150s/80s. Will monitor and consider restarting BP meds if remains elevated. Allow for variation with dialysis. 7. DMII - Continue home medications. Mod SS with bedtime SS insulin. ACHS accuchecks. Dispo: Pending Dr. Mckeon recommendations on abx course. Addendum - Attending - Attending Attestation Date/Time: 05/15/19 1398 I personally evaluated the patient and discussed the management with Dr. Vargas Rogers. I agree with the History, Examination, Assessment and Plan documented above with any addition or exceptions noted below. Fever, leukocytosis, and elevated procal without source identified- discussed with Dr. Mckeon who recommends d/c without abx and f/u in his week in the next 1- 2 weeks. Precautions for return of fever, cough, difficulty breathing, rash, etc discussed. Patient ready for discharge.
--- NOTE | 2019-05-15 09:09 | PRG ---
DATE OF SERVICE: 05/15/2019 SUBJECTIVE: Mr. Isaiah Hoskins is a 69-year-old male, followed up by the [facility] for his ESRD. He is currently undergoing hemodialysis. He is tolerating said treatment. In the interim, he had transesophageal echo done by Dr. Garrido. There was no obvious vegetation however they could not completely rule out a very small vegetation. The patient is currently asymptomatic. He is currently afebrile. No complaints of chest pain or shortness of breath. OBJECTIVE: VITAL SIGNS: Blood pressure 127/81, heart rate 67, respiratory rate 17, temperature 97.8, and pulse ox 97%. GENERAL: Noted to be awake, alert, comfortable, not in distress. SKIN: Adequate turgor. HEENT: Pinkish conjunctivae. Anicteric sclerae. NECK: No neck mass. No carotid bruits. No JVD. CHEST: No deformities. LUNGS: Clear breath sounds. HEART: Normal sinus rhythm. No murmurs, no gallops, or rubs. ABDOMEN: Globular, soft, nontender. No masses. EXTREMITIES: No edema. No deformities. MEDICATIONS: Medications of May 15, 2019, were reviewed. LABORATORY DATA: Laboratories of May 14, 2019; white count 17.7, hemoglobin 10.4. Sodium 133, potassium 4.7, chloride 98, carbon dioxide 26, BUN 32, creatinine 4.82, glucose 76, calcium 8.7, procalcitonin 77. ASSESSMENT AND PLAN: 1. Fever-on empiric IV antibiotics. Blood culture so far is negative. FARHAD, no obvious vegetation, but could not exclude a small vegetative in the aortic valve area. 2. End-stage renal disease, stable, tolerating current hemodialysis regimen. Continue Monday, Monday, and Monday dialysis. Fluid removal as tolerated. 3. Anemia. Continuing weekly Epogen. Overall, agree with current management. Recheck basic metabolic profile and CBC in a.m. Job ID: [id number] [facility]
[2019-05-15 09:24] LABS: #Basophils 0.1 thou/uL (0.0-0.2); #Eosinphils 1.5 thou/uL (0.0-0.7); #Lymphocytes 2.5 thou/uL (1.20-3.40); #Monocytes 0.7 thou/uL (0.11-0.59); #Neutrophils 9.2 thou/uL (1.40-6.50); %Basophils 0.6 % (0.0-1.0); %Lymphocytes 17.5 % (21.0-51.0); %Monocytes 5.2 % (0.0-10.0); %Neutrophils 65.7 % (42.0-75.0); Hemoglobin 11.5 g/dL (14.0-18.0); Mean Corpuscular HGB CONC 33.8 g/dL (32.0-36.0); Mean Corpuscular Hemoglobin 30.8 pg (27.0-31.0); Mean Corpuscular Volume 90.9 fL (78.0-98.0); Mean Platelet Volume 8.3 fL (7.4-10.4); Platelet Count 225 thou/uL (130-400); RBC Distribution Width 13.8 % (11.5-14.5); Red Blood Cell (RBC) Count 3.75 mill/uL (4.70-6.10); White Blood Cell (WBC) Count 13.9 thou/uL (4.8-10.8)
[2019-05-15] MEDS: Meropenem 500 MG in Sodium Chloride 0.9% 100 ML IVPB SCH (13:13)
[2019-05-15] MEDS: Ferrous Sulfate 325 MG TAB PO SCH (13:17)
[2019-05-15] MEDS: Calcitriol 0.25 MCG CAP PO SCH (13:18)
[2019-05-15] MEDS: Aspirin 81 mg Enteric Coated Tablet PO SCH (13:18)
[2019-05-15] MEDS: Insulin Glargine 25 UNITS in Pre-Filled Syringe 1 EACH SC SCH (13:18)
[2019-05-15 16:30] VITALS: BP 134/80; TEMP 97.5
--- NOTE | 2019-05-16 00:33 | DIS ---
DATE OF ADMISSION: 05/11/2019 DATE OF DISCHARGE: 05/15/2019 RESIDENT: Beny Rogers MD ADMITTING ATTENDING: Keamr Mederos MD DISCHARGE ATTENDING: Delaney Gudino MD CONSULTS: 1. Nephrology, Dr. Ari Hernandez. 2. Infectious Disease, Dr. Jesus Mckeon. 3. Cardiology, Dr. Jesus Garrido. PROCEDURES PERFORMED: 1. Chest x-ray on 05/10/2019. No significant acute intrathoracic disease, stable from prior study. 2. Nuclear medicine stress test on 05/11/2019. No significant abnormality. No evidence for infarct or ischemia or other acute process. 3. Abdominal ultrasound on 05/11/2019, unremarkable right upper quadrant ultrasound. 4. Transthoracic echocardiogram on 05/12/2019. Ejection fraction of 55% to 60% with aortic valve thickening with no distended evidence of vegetation, but a strong suspicion of endocarditis present. Consider FARHAD. 5. Transesophageal echocardiogram on 05/14/2019. Cannot completely exclude a very small vegetation present on the aortic valve. PRIMARY DIAGNOSES: 1. Atypical chest pain, resolved with negative cardiac workup. 2. Eosinophilic leukocytosis. SECONDARY DIAGNOSES: 1. Hyperlipidemia. 2. Hypertension. 3. Type 2 diabetes. 4. End-stage renal disease on hemodialysis. DISCHARGE MEDICATIONS: 1. Aspirin 81 mg p.o. daily. 2. Terazosin 2 mg p.o. at bedtime. 3. Calcitriol 0.25 mcg p.o. daily. 4. Norvasc 10 mg p.o. daily. 5. Lantus 25 units subcu daily. 6. Nitroglycerin sublingual tab 0.3 mg every 5 minutes p.r.n. 7. Clonidine 0.2 mg p.o. b.i.d. 8. Coreg 12.5 mg p.o. b.i.d. 9. Atorvastatin 40 mg p.o. at bedtime. 10. Epogen 7500 units subcu q.7 days. 11. Zoloft 50 mg p.o. daily. 12. Ferrous sulfate 325 mg p.o. daily. 13. Cozaar 50 mg p.o. at bedtime. DISCONTINUED MEDICATIONS: Cipro 250 mg p.o. q.12 hours. HISTORY OF PRESENT ILLNESS AND HOSPITAL COURSE: The patient is a pleasant Ethiopian-speaking gentleman who presented to the ED after experiencing chest pain , hypertension, and two episodes of emesis while at dialysis. He stated he was 3 hours into a 4-hour treatment and states that this is the first time this has happened at dialysis, but he has had similar pain over the past week. He describes the pain as midsternal pressure, accompanied by numbness in his right hand. He states that he has not had any previous cardiac disease or HI, and has a history of end-stage renal disease on dialysis. In the ED, he was given 500 mL bolus and admitted to the floor for further evaluation and management. At the time of admission, the patient's EKG showed a right bundle branch block and heart score of 4, with no previous cardiac workup noted. Troponins were trended and negative x3. TSH was within normal limits. A1c and lipid panel performed recently in clinic were within normal limits. It was then decided that the patient could undergo a stress test for further evaluation of his cardiac chest pain. Stress test was normal as per above findings. The patient remained asymptomatic and did not have return of any associated chest pain symptoms. The patient was placed on telemetry and did not have any acute events throughout his hospitalization. Chest pain was likely not cardiac in nature and alternative explanations such as anxiety, acid reflux, and musculoskeletal were discussed with the patient as well as treatments for these conditions. The patient voiced agreement and understanding of these treatment plans. The patient did spike a fever of 100.5 on his first night of hospitalization and had some associated nausea, vomiting, hypertension, and elevated white blood cell count as well as a procalcitonin. Blood cultures and urine cultures were obtained, and he was started on vancomycin and Zosyn. An initial chest x-ray was negative and did report that he had recently been on Cipro for some type of blood infection found at Dr. Delcid's office. Thus, Nephrology was consulted to try to obtain records. His liver enzymes were initially elevated and a recent hepatitis panel done at clinic was negative for hep C and thus, hepatitis A and B were checked. It was determined that the patient had a previous infection of hep A, but no current infection and was hep B negative. The right upper quadrant ultrasound was ordered and negative as per above. The patient's white count and procalcitonin were trended, and continued to increase on vancomycin and Zosyn. His white blood cell count peaked at 25.8 and his procalcitonin at 132.6. It was then decided that due to his worsening markers of infection, he was switched to meropenem, and vancomycin and Zosyn were discontinued. Dr. Mckeon with Infectious Disease was also consulted for further evaluation and management. A long discussion was had with the patient discussing his infection risk factors, as well as previous infections. No significant risk factors could be identified. Blood cultures and urine cultures returned negative, and patient did not report any previous similar infections. Dr. Hernandez with Nephrology was consulted and he did not recall any previous catheter or bloodstream infections treated in the office. A transthoracic echocardiogram was ordered with findings as above and thus a transesophageal echocardiogram was ordered to rule in or rule out bacterial endocarditis. Findings above were reported by Dr. Garrido and the case was discussed with Dr. Mckeon. Dr. Mckeon decided that due to the low risk factors, no heart murmur, no blood cultures and no fever since starting on antibiotics, that the antibiotics could be discontinued. It was very unlikely the patient had endocarditis and more likely had some type of catheter-related infection. The patient could be discharged home to follow up with Dr. Mckeon within 1 week. Return precautions were discussed with the patient including spiking recurrent fever, having fevers, chills, or return of his chest pain symptoms. His chronic medical conditions were controlled with his home medications and he was continued on his routine dialysis per Dr. Hernandez's recommendations. His transaminitis resolved with repeat labs. His white count and procalcitonin did trend down on meropenem, and he was monitored throughout the day of discharge, off antibiotics and did not have any return of fevers or symptoms. Throughout his hospitalization after his initial cardiac workup, the patient was asymptomatic completely and did not have any fevers, chills, nausea, vomiting, chest pain, shortness of breath, or abdominal symptoms. Discharge plan was discussed with the patient and , and they voiced agreement and understanding. Discharge plan was eager to be discharged home with followup with his primary care physician at [facility], as well as Dr. Mckeon. DISPOSITION: Stable. DISCHARGE INSTRUCTIONS: 1. Location: Home. 2. Diet: Renal. 3. Activity: As tolerated. 4. Followup: The patient is to follow up with Dr. Mckeon within one week as well as primary care physician, Dr. Smith, within one week of discharge. Job ID: [id number] MTDD
== END 2019-05-15 16:30 | disposition home or self-care (01) | DRG 391 ==
LOC: ERS 21:21 → 2SW 05-11 00:29 → OBSVTOIN 05-11 00:29 → 2NO 05-11 13:59
PROVIDERS: ADMIT Family Medicine; ATTEND Family Medicine
PROC: B24BZZ4 Ultrasonography of Heart with Aorta, Transesophageal (ICD-10-PCS; principal; 2019-05-14)
DX: K21.9 Gastro-esophageal reflux disease without esophagitis (principal); N18.6 End stage renal disease; I12.0 Hypertensive chronic kidney disease with stage 5 chronic kidney disease or end stage renal disease; N25.81 Secondary hyperparathyroidism of renal origin; N17.9 Acute kidney failure, unspecified; R07.89 Other chest pain; D72.1 Eosinophilia; E78.5 Hyperlipidemia, unspecified; E11.22 Type 2 diabetes mellitus with diabetic chronic kidney disease; E11.40 Type 2 diabetes mellitus with diabetic neuropathy, unspecified; F32.9 Major depressive disorder, single episode, unspecified; D63.1 Anemia in chronic kidney disease; R74.0 Nonspecific elevation of levels of transaminase and lactic acid dehydrogenase [LDH]; F41.9 Anxiety disorder, unspecified; R50.9 Fever, unspecified; Z90.49 Acquired absence of other specified parts of digestive tract; Z99.2 Dependence on renal dialysis; Z79.4 Long term (current) use of insulin
CPT/HCPCS: 36415; 36416; 71045; 76705; 78452; 80048; 80053; 80061; 80076; 81001; 84145; 84443; 84484; 85025; 85060; 86709; 87040; 87086; 87340; 90935; 93005; 93017; 93306; 93312; 94760; 96360; A9500; G0257; J0153; J1644; J1815; J2185; J2543; J2704; J3370; J3490

== ENCOUNTER 2019-05-25 00:54 | Inpatient (IN) | payer MEDICARE, OTHER ==
[2019-05-25] MEDS ORDERED: Piperacillin/Tazobactam 4.5 GM VIAL ONE (01:26)
[2019-05-25 01:34] LABS: Hemoglobin 10.7 g/dL (14.0-18.0); Mean Corpuscular HGB CONC 34.7 g/dL (32.0-36.0); Mean Corpuscular Hemoglobin 32.7 pg (27.0-31.0); Mean Corpuscular Volume 94.3 fL (78.0-98.0); Mean Platelet Volume 7.1 fL (7.4-10.4); Platelet Count 211 thou/uL (130-400); RBC Distribution Width 14.6 % (11.5-14.5); Red Blood Cell (RBC) Count 3.26 mill/uL (4.70-6.10)
[2019-05-25 01:45] LABS: ALT (SGPT) 233 U/L (8-55); AST (SGOT) 380 U/L (5-34); Albumin 3.7 g/dL (3.4-4.8); Alkaline Phosphatase 111 U/L (40-150); Anion Gap 19 mmol/L (10-20); BUN (Urea Nitrogen) 9 mg/dL (8.4-25.7); Calc. Creatinine Clearance 0 mL/min (70-130); Calcium 8.7 mg/dL (7.8-10.44); Carbon Dioxide 25 mmol/L (23-31); Chloride 98 mmol/L (98-107); Estimated GFR-MDRD 20; Globulin 2.5 g/dL (2.4-3.5); Glucose 137 mg/dL (80-115); Potassium 3.9 mmol/L (3.5-5.1); Protein, Total 6.2 g/dL (5.8-8.1); Sodium 138 mmol/L (136-145)
[2019-05-25] MEDS ORDERED: Ondansetron PF 4 MG/2 ML Vial ONE (01:45)
[2019-05-25 01:57] LABS: Band 23 % (5-11); Eosinophils 1 % (0-10); Lymphocytes 5 % (21-51); MDiff Complete? YES; Neutrophil 71 % (42-75)
[2019-05-25] MEDS ORDERED: MEROPENEM 1 GM/50 ML 1 GM in Premix Bag 1 BAG IVPB SCH (04:30)
[2019-05-25 04:48] LABS: Bilirubin Negative (Negative); Blood, Urine Trace (Negative); Clarity Clear (Clear); Glucose, Urine (Dipstick) 30 mg/dL (Negative); Leukocyte Negative Leu/uL (Negative); Nitrite Negative (Negative); Protein, Urine (Dipstick) 600 mg/dL (Neg-Trace); Squamous Epithelial None Seen HPF (0-3); Urobilinogen Normal mg/dL (Less than 2); WBC/HPF 0-3 HPF (0-3)
[2019-05-25 04:49] LABS: Bacteria/HPF 1+ HPF (None Seen)
[2019-05-25] MEDS ORDERED: Ondansetron PF 4 MG/2 ML Vial IVP PRN (04:55)
[2019-05-25] MEDS ORDERED: Ondansetron ODT 4 MG TAB PO PRN (04:55)
[2019-05-25] MEDS ORDERED: Acetaminophen 325 MG TAB PO PRN (04:55)
[2019-05-25] MEDS ORDERED: Sodium Chloride 0.9% 1,000 ML IV SCH (05:00)
[2019-05-25] MEDS ORDERED: Norepinephrine 8 MG/0.9% NS 250 ML IVPB SCH (05:00)
[2019-05-25] MEDS ORDERED: Dextrose 5% in Water 1,000 ML IV PRN (05:17)
[2019-05-25] MEDS ORDERED: Dextrose 50% Abboject 50 ML SYRINGE SLOW IVP PRN (05:17)
[2019-05-25] MEDS ORDERED: HumaLOG 300 UNITS/3 ML VIAL SC PRN (05:17)
--- NOTE | 2019-05-25 05:24 | PDOC.FPRHP ---
- History of Present Illness Chief Complaint: Nausea/Vomiting/Diarrhea History of Present Illness: Pt is a 69 yo M with PMH of DMII, HTN, ESRD, HLD, and HFpEF who presents with N/ V/D. He was not feeling well before his dialysis saying he was feeling nauseous. After dialysis, he came home and said he felt too sick to eat and had chills. He was also experiencing sharp left lower back pain that radiated to the LLQ. Soon after, he began vomiting and having bouts of diarrhea before passing out on the living room floor. EMS brought him to the ER. During his last visit, he was being worked up for possible endocarditis and he was being treated with Vanc and Meropenem. He was supposed to follow up with Dr. Mckeon outpatient, but never did. Dialysis is [facility], [facility]. He started dialysis earlier this year. ED Course: En route to the ER, he received IV fluids and an antiemetic. Once he arrived, they gave him 1.5L of NS. He received Zofran, Vanc, & Zosyn. His blood pressures were low and MAP was below 50, so they started him on a Levophed drip and put him in Trendelenburg. R Femoral Central Line was placed in ER. After the procedure, he had a bowel movement, which was found to have blood in it. An FOBT was performed and found to be positive. - Allergies/Adverse Reactions Allergies Allergy/AdvReac Type Severity Reaction Status Date / Time No Known Drug Allergies Allergy Verified 05/25/19 04:59 - Home Medications Medication Instructions Recorded Confirmed Type Aspirin [Aspir 81] 81 mg PO DAILY 04/07/13 05/25/19 History Amlodipine [Norvasc] 10 mg PO DAILY 01/28/19 05/25/19 History Calcitriol 0.25 mcg PO DAILY 01/28/19 05/25/19 History Carvedilol 12.5 mg PO BID 01/28/19 05/25/19 History Insulin Glargine,Hum.Rec.Anlog 25 units SQ DAILY 01/28/19 05/25/19 History [Lantus] Nitroglycerin [Nitrostat] 0.3 mg SL Q5MIN PRN 01/28/19 05/25/19 History Terazosin HCl [Hytrin] 2 mg PO HS 01/28/19 05/25/19 History cloNIDine [Catapres] 0.2 mg PO BID 01/28/19 05/25/19 History Atorvastatin Calcium [Lipitor] 40 mg PO HS #30 tab 02/04/19 05/25/19 Rx Epoetin Donnie-Epbx [Retacrit] 7,500 unit SC Q7D vial 02/04/19 05/25/19 Rx Ferrous Sulfate [Feosol] 65 mg PO DAILY 05/11/19 05/25/19 History Losartan [Cozaar] 50 mg PO HS 05/11/19 05/25/19 History Sertraline HCl 50 mg PO DAILY 05/11/19 05/25/19 History - History PMHx: HTN, HLD, DMII, ESRD, Diastolic HF, Adjustment Disorder PSHx: Cholecystectomy, R AV Fistula, R IJ central line, R femoral central line FHx: Mother- Stomach Cancer Social: Denies tobacco or recreational drug use. Drinks occasionally - Review of Systems General: reports: fever/chills Eyes: reports: vision changes (episodic) ENT: denies: rhinorrhea Respiratory: reports: cough (he has a history of chronic cough. Productive.), shortness of breath Cardiovascular: denies: chest pain, edema Gastrointestinal: reports: nausea, vomiting, diarrhea, abdominal pain Skin: denies: rashes (IJ sometimes is erythematous and warm.) Musculoskeletal: reports: pain (Back pain) Neurological: reports: numbness (R hand since AV fitstula placement.) - Vital signs BP: 88/52 HR: 90 RR: 22 Tmax: 102.9 Pox: 99% on RA Wt: 67Kg - Physical Exam Constitutional: awake, alert and oriented, well developed HEENT: normocephalic and atraumatic, PERRLA, grossly normal hearing, other (dry mucus membranes, poor dentition) Neck: supple Chest: no-tender to palpation Heart: RRR, normal S1/S2 -Lungs: wheezing in bases of lung Abdomen: bowel sounds present -Abdomen: LLQ was TTP. No rebound. Musculoskeletal: normal structure Neurological: no focal deficit Skin: no rash/lesions, no jaundice Heme/Lymphatic: no unusual bruising or bleeding, no purpura Psychiatric: normal mood and affect FMR H&P: Results - Labs Result Diagrams: 05/25/19 01:12 05/25/19 01:12 Lab results: WBC 6.0 thou/uL (4.8-10.8) 05/25/19 01:12 Hgb 10.7 g/dL (14.0-18.0) L 05/25/19 01:12 Hct 30.7 % (42.0-52.0) L 05/25/19 01:12 MCV 94.3 fL (78.0-98.0) 05/25/19 01:12 Plt Count 211 thou/uL (130-400) 05/25/19 01:12 Band Neuts % (Manual) 23 % (5-11) H 05/25/19 01:12 Sodium 138 mmol/L (136-145) 05/25/19 01:12 Potassium 3.9 mmol/L (3.5-5.1) 05/25/19 01:12 Chloride 98 mmol/L (98-107) 05/25/19 01:12 Carbon Dioxide 25 mmol/L (23-31) 05/25/19 01:12 BUN 9 mg/dL (8.4-25.7) 05/25/19 01:12 Creatinine 3.19 mg/dL (0.7-1.3) H 05/25/19 01:12 Glucose 137 mg/dL (80-115) H 05/25/19 01:12 Lactic Acid 4.8 mmol/L (0.5-2.2) H* 05/25/19 01:12 Calcium 8.7 mg/dL (7.8-10.44) 05/25/19 01:12 Total Bilirubin 1.0 mg/dL (0.2-1.2) 05/25/19 01:12 AST 380 U/L (5-34) H 05/25/19 01:12 ALT 233 U/L (8-55) H 05/25/19 01:12 Alkaline Phosphatase 111 U/L (40-150) 05/25/19 01:12 Serum Total Protein 6.2 g/dL (5.8-8.1) 05/25/19 01:12 Albumin 3.7 g/dL (3.4-4.8) 05/25/19 01:12 Urine Ketones Negative mg/dL (Negative) 05/25/19 04:09 Urine Blood Trace (Negative) A 05/25/19 04:09 Urine Nitrite Negative (Negative) 05/25/19 04:09 Ur Leukocyte Esterase Negative Denis/uL (Negative) 05/25/19 04:09 Urine RBC 7-10 HPF (0-3) A 05/25/19 04:09 Urine WBC 0-3 HPF (0-3) 05/25/19 04:09 Ur Squamous Epith Cells None Seen HPF (0-3) 05/25/19 04:09 Urine Bacteria 1+ HPF (None Seen) 05/25/19 04:09 FMR H&P: A/P - Problem List (1) Septic shock Current Visit: No Status: Acute Code(s): A41.9 - SEPSIS, UNSPECIFIED ORGANISM; R65.21 - SEVERE SEPSIS WITH SEPTIC SHOCK (2) Transaminitis Current Visit: No Status: Acute Code(s): R74.0 - NONSPEC ELEV OF LEVELS OF TRANSAMNS & LACTIC ACID DEHYDRGNSE (3) ESRD (end stage renal disease) Current Visit: No Status: Chronic Code(s): N18.6 - END STAGE RENAL DISEASE (4) Diabetes mellitus, type II Current Visit: No Status: Chronic (5) Adjustment disorder Current Visit: Yes Status: Acute Code(s): F43.20 - ADJUSTMENT DISORDER, UNSPECIFIED - Plan Pt is a 69 yo M with PMH of DMII, HTN, ESRD, HLD, and HFpEF who presents with N/ V/D. 1. Septic Shock BP: 88/52, Febrile on arrival Tmax 102, Tachycardic en route to ER. * Exam: lower back pain that radiates to LLQ. CT Abd & Pelvis with and without contrast. * Unknown source: BCx, UCx pending * Levophed drip started in ER * 1.5L NS in ER, LR 150cc/h * Received Vanc & Zosyn in the ER. Switched to Vanc & Meropenem. * LA: 4.8 > 3.3 * Procal: pending 2. Transaminitis 2/2 Shock AST: 380, ALT: 233 * Worked up during recent hospitalization and found to be negative * Will monitor 3. ESRD Dialysis MWF * Dr. Hernandez is neph, will consult * Dialysis need due to contrast 4. DMII * Started his home insulin regimen Lantus 25U BID * Moderate Sliding Scale * Will restart home meds: Calcitriol and Epogen 5. Adjustment Disorder Due to progression of DMII to ESRD * Will continue Zoloft Lines: R IJ & R Femoral Central Line DVT Prophylaxis: Heparin held, + FOBT. SCDs Code Status: Full Activity: Chair as Tolerated, Fall precautions Diet: Renal- High Protein Dispo: Inpt, working up for source of infection, unknown at this time. FMR H&P: Upper Level - Pertinent history 69 yo M w/ PMH of ESRD on HD MWF via tunneled rt IJ cath, DMII, HTN, HLD, depression presents for 1 day history of nausea, vomiting, fever and chills. Pt reports he went to his [facility] dialysis and after became ill. He presented to the ED where he wsa found to be hypotensive, pulse rate 90 and tachypneic. Additionally pt had a fever of 102.9 max. He was then given 1.5L NS and started on vasopressors after placement of rt femoral line. Pt had a recent hospitalization for which there was concern of line infection vs endocarditis. He was initially started on vancomycin and zosyn and transitioned to meropenem that hospitalization for worsening infectious markers and continued fever. He had a nora that showed possibly a smal LVOT focus and endocarditis could not be ruled out. Given lack of other clinical indicators of endocarditis pt was treated for bacteremia only and was supposed to f/u with ID after discharge; however, family reports he did not schedule an appointment with ID. During that hospitalization he had numerous blood cultures which returned negative. No source was identified. His tunneled cath was not replaced last hospitalization per patient. - Pertinent findings ROS: As above PE: Gen: Febrile, Ill appearing HEENT: NCAT, PERRLA, EOMI CV: RRR No MRG, peripheral pulses 2+ throughout Lungs: CTABL no wrr Abd: Tender to palpation llq moderate and mild RLQ ttp. Negative rovisng. Negative mcburney. Extremities: Warm w/o clubbing cyanosis or edema Neuro: No focal deficit - Plan Date/Time: 05/25/19 0519 Talon Fish DO, have evaluated this patient and agree with findings/ plan as outlined by consultant internship resident. Pertinent changes/additions are listed here. 1) Septic shock - pt will be admitted to CCU and continued on vaspressors and titrated to MAP > 65. Cont broad spectrum abx vanc and merrem. - wean as pt tolerates - he has blood cultures pending at this time and given only focal findings on exam is LLQ abd pain and some left back pain will obtain CT abd pelvis w/w/o IV and PO to evaluate for possible source - no white count; however, pt has left shift and procal of 69 - cont IVF LR @ 150mls/hr - consult nephro and pulm in am - consider line infection vs abd source consider ID consult 2) Transaminitis: - no focal exam findings - possibly related to hypotension and hypoperfusion - trend daily CMP - Workup prior hospitalization showed no evidence of Hepatitis 3) Normocytic anemia - fobt positive - trend daily - stable from prior admissions - on epogen 4) ESRD on HD - consult Dr David quintero am, cont dialysis - creatanine at baseline 5) DMII: - cont lantus and mild SSI - ACHS 6) HTN: Hold home meds, hypotensive - cont pressor support Dispo: Stable, cont pressor support. Await cultures. Consider ID consultation. Cont vanc and merrem. Code Status: Full PCP: NATHAN Smith Addendum - Attending - Attending Attestation Date/Time: 05/25/19 0600 I personally evaluated the patient and discussed the management with Dr. Rogers/ Bernarda. I agree with the History, Examination, Assessment and Plan documented above with any addition or exceptions noted below. Patient here with concern for septic shock and similar presentation to previous. He is currently on pressor support and has been adequately volume resuscitated. He does not have elevated WBC, but did have fever in the ED apparently. He is to continue on broad spectrum abx. Will consult Nephro as he will need dialysis during his stay and makes his treatment a little more complicated. Minimal UOP. Patient overall denies complaints other than mild abdominal pain and lower back pain. Consider CT A/P to look for other infection source as he has previous had fairly extensive workup. Await cx results.
[2019-05-25] MEDS ORDERED: Lactated Ringer's 1,000 ML IV SCH (05:30)
[2019-05-25 05:41] LABS: Lactic Acid 3.3 mmol/L (0.5-2.2)
[2019-05-25] MEDS ORDERED: EPOETIN ALFA-EPBX (ESRD) 4,000 UNIT/ML VIAL SC SCH (06:00)
--- NOTE | 2019-05-25 08:47 | RAD ---
PORTABLE CHEST ONE VIEW: 05/25/2019 1:13 a.m. HISTORY: Nausea and vomiting after dialysis. COMPARISON: 05/10/2019 FINDINGS: The heart size is borderline. The right-sided dialysis catheter remains in place. The lungs are wel l expanded without lobar consolidation, pneumothoraces, ofe pulmonary edema, or pleural effusions. POS: [facility]
[2019-05-25] MEDS ORDERED: Heparin 5,000 UNITS/ML VIAL SC SCH (09:00)
[2019-05-25] MEDS ORDERED: Vancomycin HCl 250 MG in Sodium Chloride 0.9% 100 ML IVPB SCH (09:15)
[2019-05-25] MEDS ORDERED: HOLD VANCOMYCIN FOR LEVEL >20 FS SCH (09:15)
[2019-05-25] MEDS ORDERED: Vancomycin HCl 500 MG in Sodium Chloride 0.9% 100 ML IVPB SCH ×2 (09:15→20:00)
[2019-05-25] MEDS ORDERED: Vancomycin HCl 750 MG in Sodium Chloride 0.9% 250 ML 250 ML IVPB SCH (09:15)
[2019-05-25] MEDS ORDERED: Vancomycin HCl 1 GM in Premix Bag 1 BAG IVPB SCH (09:15)
--- NOTE | 2019-05-25 09:29 | CT ---
CT abdomen and pelvis with IV contrast. Oral contrast was administered. INDICATIONS: Abdominal pain COMPARISON: None FINDINGS: Lung bases are clear Liver, spleen, and pancreas appear unremarkable. Patient is post cholecystectomy. Mild prominence of the biliary ducts appears consistent with postcholecystectomy status. Stomach and duodenum appear unremarkable. Adrenal glands appear normal. Kidneys show symmetric function. Bilateral perinephric stranding of and certain significance. No hydr onephrosis or urinary calculus. 2 small cystic lesions in the lower pole of the left kidney, largest measuring 1.5 cm and the adjacent smaller one measuring 1.0 cm. 1 cm cystic lesion in the mid right renal cortex. Another smaller cystic lesion in the mid right josee l cortex. Urinary bladder contracted with Robledo catheter in place. Small bowel loops are normal caliber and exhibit normal fold pattern. Appendix is identified and appears unremarkable. Scattered diverticula seen in the left colon. Aorta is normal caliber. No evidence of retroperitoneal or mesenteric adenopathy. Moderate prostatic hypertrophy seen on images through pelvis. Subcutaneous tissues, abdominal wall, and muscular structures appear unremarkable. Osseous structures appear unremarkable. IMPRESSION: 1. Bilateral perinephric stranding and small renal cystic lesions as described. 2. Moderate prostatic hypertrophy 3. No evidence of acute process
[2019-05-25 10:17] LABS: Lactic Acid 4.8 mmol/L (0.5-2.2)
--- NOTE | 2019-05-25 11:10 | PRG ---
DATE OF SERVICE: 05/25/2019 SUBJECTIVE: Mr. Isaiah Hoskins is a 69-year-old male with ESRD was admitted initially with a complaint of nausea and vomiting. He was found to be hypotensive. Feeling he may be septic. CAT scan of the abdomen shows some stranding of the kidneys. He was started on pressor support as well, placed on empiric IV antibiotics. We are being consulted for his maintenance hemodialysis. He did receive IV contrast yesterday and for this reason, we will do a 2-hour hemodialysis with this patient with minimal fluid removal. He voices no new complaints today. He still feels weak and tired. He denies any chest pain or shortness of breath. OBJECTIVE: VITAL SIGNS: Blood pressure is 101/61, heart rate 68, respiratory rate is 5, and pulse ox 100%. GENERAL: The patient is awake, supine, comfortable, but somewhat lethargic. HEENT: He has a slightly pale conjunctivae. Anicteric sclerae. No neck mass. No carotid bruits. No JVD. CHEST: No deformities. LUNGS: Clear breath sounds. HEART: Normal sinus rhythm. No murmur. No gallops. No rubs. ABDOMEN: Globular, soft, nontender. No masses. EXTREMITIES: No edema. No deformities. MEDICATIONS: Medications of May 25, 2019, were reviewed. LABORATORY DATA: Laboratories of May 25, 2019; white count 6, hemoglobin 10.7. Sodium is noted at 138, potassium 3.9, chloride 98, carbon dioxide 25, BUN 9, creatinine 3.19, lactic acid is 4.8. AST 380, ALT 233. Troponin less than 0.01. ASSESSMENT AND PLAN: 1. End-stage renal disease, stable. We will continue his regular Monday, Monday, and Monday hemodialysis. Due to the IV contrast load given early this morning, we will do a short 2-hour dialysis with minimal fluid removal. 2. Doandl-[id number] IV antibiotics. Agree with volume repletion. 3. Overall prognosis remains guarded. Agree with current management. Job ID: [id number]
[2019-05-25] MEDS: Lactated Ringer's 1,000 ML IV SCH ×2 (11:16→20:32)
[2019-05-25] MEDS: Insulin Glargine 25 UNITS in Pre-Filled Syringe 1 EACH SC SCH (11:20)
[2019-05-25] MEDS: Ferrous Sulfate 325 MG TAB PO SCH (11:25)
[2019-05-25] MEDS: Calcitriol 0.25 MCG CAP PO SCH (11:25)
--- NOTE | 2019-05-25 11:48 | CON ---
DATE OF CONSULTATION: 05/25/2019 SERVICE: Pulmonary Medicine. REASON FOR CONSULT: ICU patient. HISTORY OF PRESENT ILLNESS: The patient is a 69-year-old male with past medical history significant for end-stage renal disease and diabetes. He was on dialysis when he started having some increasing nausea, vomiting, and diarrhea. He got dehydrated. At home, he had a syncopal event. He presented to the Emergency Department. He was brought here by EMS Services. The last time he was here, there was a suspicion of possible endocarditis. He is being treated with antibiotics. Overnight, the patient got a couple liters of fluid, a central line was placed, and he was started on pressors. He tells me that he is feeling quite a bit better this morning. PAST MEDICAL HISTORY: 1. End-stage renal disease. 2. Type 2 diabetes mellitus. 3. Hypertension. 4. Dyslipidemia. 5. Chronic diastolic heart failure. PAST SURGICAL HISTORY: 1. Cholecystectomy. 2. Right forearm AV fistula. 3. Right tunneled vascular catheter in the IJ. 4. History of right femoral central line. FAMILY HISTORY: Noncontributory. SOCIAL HISTORY: Negative for tobacco or illicit drug use. He drinks alcohol occasionally. He has no exposure to chemicals, dust, asbestos, or tuberculosis. ALLERGIES: NO KNOWN DRUG ALLERGIES. MEDICATIONS: List of his inpatient medications was reviewed. No specific updates were made at this time. REVIEW OF SYSTEMS: General, head, ears, eyes, nose, throat, cardiovascular, respiratory, GI, , musculoskeletal, neurologic, and skin are negative except as mentioned in the HPI. PHYSICAL EXAMINATION: VITAL SIGNS: Afebrile currently with a T-max of 100.5. Pulse 68, blood pressure 101/61, respirations 6, and saturation 100% on room air. GENERAL: The patient is awake and alert, in no apparent distress. LUNGS: Decent air entry. No prolonged expiratory phase or wheezing is appreciated. HEART: Normal rate. Regular. ABDOMEN: Soft, nontender, and nondistended. Bowel sounds are positive. MUSCULOSKELETAL: No cyanosis or clubbing. There is no pitting in bilateral lower extremities. NEUROLOGIC: Grossly nonfocal. LABORATORY DATA: WBC 6.0, hemoglobin 10.7, and platelets 211,000. Band counts are 23% on top of 71% neutrophils. Lactate is 4.8 and gently uptrending. Procalcitonin 70. Troponin is below the assay limit of 0.01. AST and ALT are marginally elevated. Creatinine 3.19, but otherwise the comprehensive metabolic profile is unremarkable. Urinalysis is also unremarkable. IMAGING: CT of the abdomen and pelvis demonstrates bilateral perinephric stranding, suggestive of pyelonephritis. ASSESSMENT: 1. Septic shock. 2. Pyelonephritis? 3. End-stage renal disease. 4. Type 2 diabetes mellitus. DISCUSSION AND PLAN: We will agree with his empiric antibiotics. We will gently continue to hydrate the patient through time. We will watch his in's and out's fairly closely and once he gets to euvolemia, all IV fluids will be interrupted. The patient will remain in the ICU until we can get him off the Levophed. Pulmonary/Critical Care will follow along in this location. Consultation for Dr. Mckeon has been placed. Hopefully, the patient will follow up as directed in the outpatient setting on dismissal from the hospital this time around. 70 minutes have been devoted to this patient in various activities. I personally reviewed all imaging studies and laboratory data noted within this document. For fifty percent of this time, I was interacting with the patient at the bedside or coordinating care with the care team. For the remainder of the time I was immediately available to the patient in the hospital unit. Job ID: [id number] MTDD
[2019-05-25 12:53] LABS: Actual Bicarbonate (HCO3a) 24.3 mEq/L (22-28); Base Excess (BEa) 0.7 mEq/L (-2.0 to +3.0); CO2 Tension 35.4 mmHg (35.0-45.0); Calcium, Ionized 1.03 mmol/L (1.12-1.30); Carboxyhemoglobin (COHb) 1.2 gm% (0.0-3.0); Hemoglobin (Hb) 10.9 g/dL (14.0-18.0); Potassium - ABG Lab 4.04 mmol/L (3.70-5.30); pH, Arterial 7.46 (7.35-7.45)
[2019-05-25 13:05] LABS: Puncture Site LRA
[2019-05-25] MEDS: Norepinephrine 8 MG in Dextrose 5% in Water 242 ML IVPB SCH (15:34)
[2019-05-25] MEDS ORDERED: ISOVUE-370 76%-LOCM 1 ML ONE (16:41)
[2019-05-25 16:52] LABS: Bacteria/HPF None Seen HPF (None Seen); RBC/HPF Greater than 50 HPF (0-3); Squamous Epithelial 0-3 HPF (0-3); WBC/HPF 0-3 HPF (0-3)
[2019-05-25 19:25] LABS: Lactic Acid 3.7 mmol/L (0.5-2.2)
[2019-05-25 19:26] LABS: Vancomycin, Random 13.4 ug/mL (See Comment)
--- NOTE | 2019-05-25 19:54 | CON ---
DATE OF CONSULTATION: 05/25/2019 REASON FOR CONSULTATION: Hypotension and sepsis. HISTORY OF PRESENT ILLNESS: A 69-year-old patient, whom I had just recently seen in the hospital. At that time, just a few days ago, he had presented with a history of end-stage renal disease secondary to type 2 diabetes with dialysis via a catheter and then an AV fistula. He apparently developed fever during dialysis at time and according to reports that we received initially, he had received treatment with ciprofloxacin for a positive infection in the blood stream. Later on, Dr. Hernandez denied that he ever had positive blood cultures. Anyway, in the beginning May, our impression is that we would have to rule out catheter infection and this was effectively done. The microbiology studies a few days ago showed negative urine and negative blood cultures. He was released and now was brought back to the hospital with general malaise before dialysis, nausea, and pain in the left flank, vomiting, some diarrhea. He had a syncopal event, so EMS brought him to the emergency room. He was found hypotensive and had a temperature elevation of 102.9, BP was 85/51. Given IV fluids and pressors and transferred to the ICU. He is being dialyzed at the time, he is awake, appears in no distress. Denies headaches. No visual symptoms. No sore throat. Has been coughing, but no sputum production, no chest pain. Complains of pain in the left flank area. Has pain in his suprapubic area, and also reported dysuria for the days before admission. He still has significant urine output. PAST MEDICAL HISTORY: Includes hypertension; type 2 diabetes; end-stage renal disease, hemodialysis via an AV fistula, but he still has a catheter in the right IJ position, which is tunneled. PAST SURGICAL HISTORY: Cholecystectomy, AV fistula, central line. FAMILY HISTORY: Gastric cancer. SOCIAL HISTORY: Never smoker. Drinks occasionally. CURRENT MEDICATIONS: 1. Tylenol. 2. Lipitor. 3. Rocaltrol. 4. Epoetin. 5. Feosol. 6. Insulin. 7. Meropenem. 8. Norepinephrine. 9. Ondansetron. 10. Zoloft. 11. Vancomycin. PHYSICAL EXAMINATION: VITAL SIGNS: T-max 100.5, now 98.9. Blood pressure is up to 118/68, pulse 80, O2 saturation 100. SKIN: Not remarkable. The patient has the AV fistula de-accessed, now he has completed dialysis. The dialysis nurse is not yet confident that the AV fistula will continue to be available and recommended to keep the catheter for now. HEENT: The ocular movements are conjugate. Sclerae are white. Oral cavity normal. NECK: Supple. LUNGS: Symmetric, clear breath sounds. HEART: S1 and S2, regular rate without murmurs. ABDOMEN: Tender left flank and left CVA area, tender suprapubic area. NEUROLOGIC: He is able to move extremities on command. His cognitive function appears to be intact. LABORATORY DATA: White cell count 6.0, hemoglobin 10.7, MCV 94, platelets 211, with 23% bands. Creatinine 3.19. AST 380, ALT 233. CK was 40. Albumin 3.7. Urinalysis with [address] of abdomen and pelvis was done with contrast. The liver, spleen, and pancreas appeared unremarkable. There is mild biliary duct prominence, consistent with post cholecystectomy status. The kidneys had bilateral perinephric stranding of uncertain significance. No calculus. No hydronephrosis noted. Urinary bladder was contracted. Bowel loops were normal. Appendix appeared normal. No adenopathy. Moderate prostatic hypertrophy. Chest x-ray with borderline heart size, well-expanded lungs. Previous echocardiogram from May 14, it was a FARHAD and the report indicated no mass or vegetation, although Dr. Garrido could not exclude a very small vegetation on the LVOT side of the aortic valve. ASSESSMENT: 1. End-stage renal disease secondary to type 2 diabetes. 2. Tunneled catheter in the right IJ position. 3. Recurrent episodes of fever. 4. Flank pain with some kidney soft tissue stranding, but normal urinalysis. DISCUSSION: The patient does not have an equivocal findings to suggest pyelonephritis. The stranding could be just edema without actual inflammatory process, in view of the normal urinalysis, particularly in view of the fact that he does not have any evidence of obstruction. Then there is this FARHAD finding, which is a questionable finding. If the blood cultures remain negative, I would advise Karius testing to see if he has a subclinical bacterial colonies in the blood stream that were not identified in the blood culture system. Evidently, if the blood cultures turn positive, then we will pursue with that line of treatment/ evaluation. The Karius test is the test, where the patient's plasma is submitted to a reference lab for DNA sequencing of potential pathogens. It is a much more sensitive test for bacteremia and fungemia than routine blood cultures. Job ID: [id number] [facility]
[2019-05-25] MEDS: Atorvastatin Calcium 40 MG TAB PO SCH (20:29)
[2019-05-26 04:11] LABS: ALT (SGPT) 449 U/L (8-55); AST (SGOT) 225 U/L (5-34); Albumin 3.1 g/dL (3.4-4.8); Alkaline Phosphatase 92 U/L (40-150); Anion Gap 13 mmol/L (10-20); BUN (Urea Nitrogen) 18 mg/dL (8.4-25.7); Calc. Creatinine Clearance 18 mL/min (70-130); Calcium 8.3 mg/dL (7.8-10.44); Carbon Dioxide 29 mmol/L (23-31); Chloride 99 mmol/L (98-107); Estimated GFR-MDRD 16; Globulin 2.6 g/dL (2.4-3.5); Glucose 84 mg/dL (80-115); Potassium 4.8 mmol/L (3.5-5.1); Protein, Total 5.7 g/dL (5.8-8.1); Sodium 136 mmol/L (136-145)
[2019-05-26 04:30] LABS: Band 20 % (5-11); Hemoglobin 9.5 g/dL (14.0-18.0); Lymphocytes 5 % (21-51); MDiff Complete? YES; Mean Corpuscular Hemoglobin 32.6 pg (27.0-31.0); Mean Corpuscular Volume 95.9 fL (78.0-98.0); Mean Platelet Volume 8.2 fL (7.4-10.4); Metamyelocyte 3 % (0-0); Monocytes 4 % (0-10); Neutrophil 68 % (42-75); Platelet Count 154 thou/uL (130-400); Platelet Morphology Comment Appears Adequate; RBC Distribution Width 15.1 % (11.5-14.5); White Blood Cell (WBC) Count 31.2 thou/uL (4.8-10.8)
[2019-05-26] MEDS: Meropenem 500 MG in Sodium Chloride 0.9% 100 ML IVPB SCH (05:55)
[2019-05-26] MEDS: Lactated Ringer's 1,000 ML IV SCH ×2 (06:03→17:37)
--- NOTE | 2019-05-26 07:14 | PDOC.FM ---
- Subjective Subjective: Did well over night, levo has been titrated down from 8 to 6. Patient notes diarrhea q2h which started the night before admission. No blood in stool or abdominal pain. Patient denies fever, chills, SOB, cough, or continue abdominal pain. - Objective MAR Reviewed: Yes Vital Signs & Weight: Vital Signs (12 hours) Temp 05/26/19 04:00 99.4 F 05/26/19 00:00 100.1 F H 05/25/19 20:00 100.6 F H Weight Weight 67.4 kg Most Recent Monitor Data Heart Rate from ECG 74 NIBP 97/57 NIBP BP-Mean 70 Respiration from ECG 0 SpO2 96 I&O: 05/25/19 05/26/19 05/27/19 06:59 06:59 06:59 Intake Total 3140 Output Total 0 572 Balance 0 2568 Result Diagrams: 05/26/19 03:21 05/26/19 03:21 Phys Exam - Physical Examination Constitutional: NAD HEENT: PERRLA, moist MMs Neck: full ROM Respiratory: clear to auscultation bilateral Cardiovascular: RRR, no significant murmur Gastrointestinal: soft, non-tender, no distention, positive bowel sounds Musculoskeletal: no edema, pulses present Neurological: non-focal, moves all 4 limbs Lymphatic: no nodes Psychiatric: normal affect, A&O x 3 Skin: no rash, normal turgor Dx/Plan (1) Diarrhea Code(s): R19.7 - DIARRHEA, UNSPECIFIED Status: Acute (2) Leukocytosis Code(s): D72.829 - ELEVATED WHITE BLOOD CELL COUNT, UNSPECIFIED Status: Acute Qualifiers: Leukocytosis type: eosinophilia Qualified Code(s): D72.1 - Eosinophilia (3) Transaminitis Code(s): R74.0 - NONSPEC ELEV OF LEVELS OF TRANSAMNS & LACTIC ACID DEHYDRGNSE Status: Acute (4) Diabetes mellitus, type II Status: Chronic (5) ESRD (end stage renal disease) Code(s): N18.6 - END STAGE RENAL DISEASE Status: Chronic (6) Hypotension Status: Acute - Plan Plan: Diarrhea - stool studies pending - this is likely contributing to hypotension, continue IVF Hypotension - likely SIRS response to occult infection given elevated procal - continue Levophed as needed - Continue abx. - Dr ahmadi recommends Karus test if cultures are negative DM2 - continue home meds ESRD - Dr Hernandez is consulted, continue HD Leukocytosis - abx and work up as above Elevated LFT - Possibly related to hypotensive episode. Hep workup at last hospitalization negative Dispo: patient is stable and improving, would expect transition to medical floor when he is weaned from levo today or tomorrow. Addendum - Attending - Attending Attestation Date/Time: 05/26/19 7942 I personally evaluated the patient and discussed the management with Dr. Og. I agree with the History, Examination, Assessment and Plan documented above with any addition or exceptions noted below. Patient here with suspicion of septic shock, currently on pressors. He is doing improved and pressor support has been weaned down. He has been afebrile with exception of a single event, but WBC has spiked and his blood culture is now growing bacteria. Continue Lissy and Vanc. ID on board. No known infectious source. Continue gentle IVF resuscitation in the setting of ESRD. Continue current mgmt.
[2019-05-26] MEDS: Ferrous Sulfate 325 MG TAB PO SCH (09:04)
[2019-05-26] MEDS: Calcitriol 0.25 MCG CAP PO SCH (09:04)
[2019-05-26] MEDS: Insulin Glargine 25 UNITS in Pre-Filled Syringe 1 EACH SC SCH (09:05)
--- NOTE | 2019-05-26 09:21 | PRG ---
DATE OF SERVICE: 05/26/2019 SERVICE: Pulmonary Medicine. INTERVAL HISTORY: The patient is doing fine from respiratory standpoint. He is breathing comfortably. He has no complaints of chest discomfort or shortness of breath. Otherwise, he is returning to his usual state of health. His Levophed drip is decreasing down to 6 mcg. His urine output is actually doing decent. There has been no interval change to his condition. PHYSICAL EXAMINATION: VITAL SIGNS: Afebrile, currently with a temperature max of 100.6. Pulse 82, blood pressure 106/60, respirations 14, and saturation 96% on room air. GENERAL: The patient is awake and alert, in no apparent distress. LUNGS: Decent air entry without any prolonged expiratory phase or wheezing present. HEART: Normal rate. Regular. ABDOMEN: Soft. Nontender and nondistended. Bowel sounds are positive. MUSCULOSKELETAL: No cyanosis or clubbing. There is no pitting in the bilateral lower extremities. The skin tenting is improved. : Robledo catheter in place. NEUROLOGIC: Grossly nonfocal. LABORATORY DATA: WBC 31.2, hemoglobin 9.5, and platelets 154,000. Band count has improved to 20%. Creatinine 3.83 and gently uptrending. AST is downtrending, ALT is uptrending, and alkaline phosphatase is stable. Liver function studies are otherwise unremarkable. CK is unremarkable. Lactate is 3.7, once again decreasing. Microscopic hematuria is present. One blood culture is growing gram-positive cocci. ASSESSMENT: 1. Septic shock, improving. 2. Bacteremia with gram-positive cocci isolated, further identification pending. 3. End-stage renal disease. 4. Type 2 diabetes mellitus. DISCUSSION AND PLAN: I will continue his empiric antibiotics. We will wean Levophed away as tolerated. Pulmonary/Critical Care will continue to follow along while the patient remains inhouse. Any dialysis that we perform does not need to take off fluid at this time. Critical Care will follow along in this location. Job ID: [id number]
--- NOTE | 2019-05-26 11:46 | PRG ---
DATE OF SERVICE: 05/26/2019 SUBJECTIVE: Mr. Isaiah Hoskins was admitted for sepsis. He is on empiric IV antibiotics. He also has a leukocytosis. He underwent extra dialysis yesterday due to the contrast load he received the day before. No new complaints today. He is still feeling tired. ID has been consulted. He is on empiric antibiotics. OBJECTIVE: VITAL SIGNS: Blood pressure is 116/63, heart rate 81, respiratory rate is 12, and pulse ox 92%. GENERAL: Noted to be awake, alert, supine, comfortable, not in distress. SKIN: Adequate turgor. HEENT: Slightly pale conjunctivae. Anicteric sclerae. NECK: No neck mass. No carotid bruits. No JVD. CHEST: No deformities. LUNGS: Clear breath sounds. No wheezing. No crackles. HEART: Normal sinus rhythm. No murmur. No gallops. No rubs. ABDOMEN: Globular, soft, nontender. No masses. EXTREMITIES: No edema. No deformities. LABORATORY DATA: Blood culture showed Streptococcus species on the left hand. White count 31.2, hemoglobin 9.5. Sodium 136, potassium 4.8, chloride 99, carbon dioxide 29, BUN 18, creatinine 3.83, AST 225, ALT 449, procalcitonin 161, albumin 3.1. ASSESSMENT AND PLAN: 1. End-stage renal disease, stable, tolerating current hemodialysis regimen. No changes to be made. We will continue Monday, Monday, and Monday hemodialysis. Again, fluid removal as tolerated. We did not remove fluid with dialysis yesterday due to the low BP. 2. Sepsis. Currently, the patient is followed by Dr. Mckeon. He is on empiric IV antibiotics. 3. Anemia. The patient is currently on weekly Epogen. 4. Agree with current management. His medications of May 26, 2019, were reviewed. Job ID: [id number]
[2019-05-26] MEDS: Norepinephrine 8 MG in Dextrose 5% in Water 242 ML IVPB SCH (12:10)
[2019-05-26] MEDS: Atorvastatin Calcium 40 MG TAB PO SCH (20:56)
[2019-05-27 06:02] LABS: ALT (SGPT) 288 U/L (8-55); AST (SGOT) 93 U/L (5-34); Albumin 3.1 g/dL (3.4-4.8); Alkaline Phosphatase 98 U/L (40-150); Anion Gap 15 mmol/L (10-20); BUN (Urea Nitrogen) 36 mg/dL (8.4-25.7); Bilirubin, Total 0.7 mg/dL (0.2-1.2); Calc. Creatinine Clearance 13 mL/min (70-130); Calcium 8.6 mg/dL (7.8-10.44); Carbon Dioxide 25 mmol/L (23-31); Chloride 100 mmol/L (98-107); Estimated GFR-MDRD 11; Globulin 2.8 g/dL (2.4-3.5); Potassium 4.5 mmol/L (3.5-5.1); Protein, Total 5.9 g/dL (5.8-8.1); Sodium 135 mmol/L (136-145)
[2019-05-27 06:05] LABS: Glucose 50 mg/dL (80-115)
[2019-05-27 06:12] LABS: Band 14 % (5-11); Eosinophils 3 % (0-10); Hemoglobin 9.4 g/dL (14.0-18.0); Lymphocytes 9 % (21-51); MDiff Complete? YES; Mean Corpuscular HGB CONC 34.2 g/dL (32.0-36.0); Mean Corpuscular Hemoglobin 32.8 pg (27.0-31.0); Mean Corpuscular Volume 95.7 fL (78.0-98.0); Mean Platelet Volume 8.2 fL (7.4-10.4); Neutrophil 74 % (42-75); Platelet Count 144 thou/uL (130-400); RBC Distribution Width 15.1 % (11.5-14.5); Red Blood Cell (RBC) Count 2.86 mill/uL (4.70-6.10); White Blood Cell (WBC) Count 24.2 thou/uL (4.8-10.8)
[2019-05-27] MEDS: Meropenem 500 MG in Sodium Chloride 0.9% 100 ML IVPB SCH (06:49)
--- NOTE | 2019-05-27 07:35 | PDOC.FM ---
- Subjective Subjective: Pt reports good rest overnight. He complains of re-occurence of abdominal pain ( mild) in LLQ and RUQ. no N/V/diarrhea/constipation. No fever or chills. No other complaints at this time. - Objective Vital Signs & Weight: Vital Signs (12 hours) Temp Pulse Ox 05/27/19 05:00 98.8 F 05/27/19 04:00 98.8 F 05/27/19 00:00 99.2 F 05/26/19 20:00 98.8 F 98 Weight Weight 68 kg Most Recent Monitor Data Heart Rate from ECG 66 NIBP 132/69 NIBP BP-Mean 90 Respiration from ECG 16 SpO2 90 I&O: 05/26/19 05/27/19 05/28/19 06:59 06:59 06:59 Intake Total 3140 2030.4 Output Total 572 690 Balance 2568 1340.4 Result Diagrams: 05/27/19 05:30 05/27/19 05:30 Phys Exam - Physical Examination Constitutional: NAD HEENT: moist MMs, sclera anicteric Respiratory: no wheezing, clear to auscultation bilateral Cardiovascular: RRR, no significant murmur mild TTP on RUQ and LLQ, negative peirre/mcburney. no guarding. Musculoskeletal: no edema, pulses present Neurological: normal sensation, moves all 4 limbs Psychiatric: normal affect Skin: no rash, normal turgor Dx/Plan (1) Septic shock Code(s): A41.9 - SEPSIS, UNSPECIFIED ORGANISM; R65.21 - SEVERE SEPSIS WITH SEPTIC SHOCK Status: Acute (2) Adjustment disorder Code(s): F43.20 - ADJUSTMENT DISORDER, UNSPECIFIED Status: Acute (3) Diarrhea Code(s): R19.7 - DIARRHEA, UNSPECIFIED Status: Acute (4) Hypotension Status: Acute (5) Leukocytosis Code(s): D72.829 - ELEVATED WHITE BLOOD CELL COUNT, UNSPECIFIED Status: Acute Qualifiers: Leukocytosis type: eosinophilia Qualified Code(s): D72.1 - Eosinophilia (6) Transaminitis Code(s): R74.0 - NONSPEC ELEV OF LEVELS OF TRANSAMNS & LACTIC ACID DEHYDRGNSE Status: Acute (7) Diabetes mellitus, type II Status: Chronic (8) ESRD (end stage renal disease) Code(s): N18.6 - END STAGE RENAL DISEASE Status: Chronic (9) HTN (hypertension) Code(s): I10 - ESSENTIAL (PRIMARY) HYPERTENSION Status: Chronic - Plan Plan: Septic Shock, improving A- Pt is now stable off pressors and IVF. source of infection unclear. Procal of 161 however is impressive. ID is consulted. BCx 1/2 growing strep species, further speciation and sensitivities are pending. P- continue merem and Vanc -f/u ID recs, much appreciated -f/u Stool studies Diarrhea A- stool studies pending. this is likely contributing to hypotension, continue IVF P- f/u stool studies Normocytic anemia A- likely multifactoral. Pt is ESRD and has positive FOBT P- will monitor h/h -continue epoetin and iron supplementation -recommend colonoscopy outpt Elevated LFT A- Possibly related to hypotensive episode. Hep workup at last hospitalization negative, RUQ US showed normal echogenic texture P- continue to monitor DM2 -continue home meds ESRD -Dr Hernandez is consulted, continue HD Leukocytosis - abx and work up as above Adjustment d/o -home SSRI HLD -home statin Dispo: patient is stable and improving, stable for transfer to medical floor Addendum - Attending - Attending Attestation Date/Time: 05/27/19 1216 I personally evaluated the patient and discussed the management with Dr. Perez I agree with the History, Examination, Assessment and Plan documented above with any addition or exceptions noted below. Consider Central line access as source of sepsis note s/p transesophageal echocardiogram prior consideration endocarditis noted,continue current antibiotic regimen. Stool sent for further studies including C. Dificile and see Dr Mckeon note regard advanced testing if needed. Patient off pressors and tolerating hemodialysis ok transfer to floor at this point. Patient to have dialysis cath changed out as well.
--- NOTE | 2019-05-27 09:31 | PRG ---
DATE OF SERVICE: 05/27/2019 SERVICE: Renal Medicine. SUBJECTIVE: Mr. Isaiah Hoskins is a 69-year-old male with ESRD and followed up by the Renal Service for his maintenance hemodialysis. He is currently undergoing dialysis today. He was noted to be having chills and rigors during the said dialysis. So far, the blood culture has been done. He has grown in the 2 blood culture, a gram-positive cocci. He continues to be treated with IV antibiotics - meropenem and vancomycin. He also was noted to have leukocytosis initially. Our concern is that this may be related to a Lyme bacteremia. We will consult Surgery to have that dialysis catheter pulled out and changed. OBJECTIVE: VITAL SIGNS: Blood pressure is 139/77, temperature is 98.5, heart rate 101, respiratory rate 16, and pulse ox 94%. GENERAL: Awake, alert, not in overt distress. SKIN: Adequate turgor. HEENT: Slightly pale conjunctivae. Anicteric sclerae. NECK: No neck mass. No carotid bruits. No JVD. CHEST: No deformities. LUNGS: Clear breath sounds. HEART: Normal sinus rhythm. No murmur. No gallops. No rubs. ABDOMEN: Globular, soft, and nontender. No masses. EXTREMITIES: No edema. No deformities. MEDICATIONS: Medications of May 27, 2019, was reviewed. LABORATORY DATA: Laboratories of May 27, 2019; white count 24.2, hemoglobin 9.4. Sodium 135, potassium 4.5, chloride 100, carbon dioxide 25, BUN 36, creatinine 5.25, glucose 50, AST 93, ALT 288, and albumin 3.1. ASSESSMENT AND PLAN: 1. Chills and rigors - consider replacing the dialysis catheter. We will consult Surgery. Continue IV antibiotics. 2. Streptococcus bacteremia, currently on IV meropenem and vancomycin. 3. End-stage renal disease, stable. We will continue current Monday, Monday, and Monday hemodialysis regimen. Minimal fluid removal. Overall, agree with current management. Job ID: [id number]
[2019-05-27] MEDS: Calcitriol 0.25 MCG CAP PO SCH (09:50)
[2019-05-27] MEDS: Ferrous Sulfate 325 MG TAB PO SCH (09:50)
--- NOTE | 2019-05-27 09:56 | PRG ---
DATE OF SERVICE: 05/27/2019 SERVICE: Pulmonary Medicine. INTERVAL HISTORY: The patient is doing really well from respiratory standpoint. He has been weaned off pressors altogether. He had an uneventful evening. That being said, this morning he got put on dialysis, and started having shaking rigors 10 minutes in. He denies any shortness of breath, nausea, vomiting, or chest discomfort. Otherwise, he is in his usual state of health. PHYSICAL EXAMINATION: VITAL SIGNS: Afebrile. Pulse 67, blood pressure 139/77, respirations 16, and saturation 94% on room air. GENERAL: The patient is awake and alert, in no apparent distress. LUNGS: Decent air entry. No prolonged expiratory phase or wheezing is appreciated. HEART: Normal rate and regular. ABDOMEN: Soft, nontender, nondistended. Bowel sounds are positive. MUSCULOSKELETAL: No cyanosis or clubbing. Pitting edema is resolved. NEUROLOGICAL: Grossly nonfocal. LABORATORY DATA: WBC 24.2, hemoglobin 9.4 and stable, platelets 144,000. Glucose is 50, creatinine 5.52. Basic metabolic profile, is unremarkable otherwise. AST and ALT are now both downtrending. Alkaline phosphatase has fallen to the normal range. Vancomycin level is 16. Blood cultures are growing Streptococcus in 2/ 2. Urine culture is negative. ASSESSMENT: 1. Septic shock, resolved. 2. Bacteremia secondary to Streptococcus in 2/2. 3. End-stage renal disease. 4. Type 2 diabetes mellitus. DISCUSSION AND PLAN: At this point, the patient is stable for transition to the medical unit. The shaking rigors right after dialysis was initiated is of concern. I am going to repeat blood cultures x2, out of both dialysis ports and get a peripheral site as well. When the patient leaves the ICU, he will have no further requirements for inpatient Pulmonary or Critical Care opinion, and I will sign off. Please call with additional questions or concerns through time. Job ID: [id number] MTDD
[2019-05-27] MEDS: Insulin Glargine 25 UNITS in Pre-Filled Syringe 1 EACH SC SCH (10:01)
[2019-05-27] MEDS: Dextrose 5 %-0.45 % NaCl 1,000 ML IV SCH (10:23)
[2019-05-27 12:56] LABS: INR-International Normal Ratio 1.1; PTT 39.2 SEC (22.9-36.1); Prothrombin Time 14.5 SEC (12.0-14.7)
[2019-05-27] MEDS ORDERED: Heparin 10,000 UNITS/1 ML VIAL ONE (15:00)
--- NOTE | 2019-05-27 18:36 | PRG ---
DATE OF SERVICE: 05/27/2019 SUBJECTIVE: The patient is sitting up, eating dinner, appears in no distress, a little bit of pain in the right upper quadrant, and has a Robledo catheter. No cough or chest pain. OBJECTIVE: VITAL SIGNS: T-max 99.3, blood pressure 138/94, respirations 18, O2 saturation 99%. Robledo catheter, peripheral IV access, and tunneled hemodialysis catheter right IJ position. LUNGS: Symmetric, clear breath sounds. HEART: S1 and S2, regular rate without murmurs. ABDOMEN: Soft with mild tenderness in the right upper quadrant. LABORATORY AND DIAGNOSTIC DATA: White cell count went up to 31 and now is down to 24, still with 14% bands. Sodium 135, creatinine 5.25, with AST 93, ALT 288. The AST peaked at 380 and the ALT was at 233. Albumin 3.1, bilirubin was 1 and now is 0.7. Alkaline phosphatase was 111 and now is 98. The abdomen and pelvis CT from May 25 was with contrast study. There was mild prominence of the biliary ducts, bilateral perinephric stranding of uncertain significance, urinary bladder was contracted, moderate prostatic hypertrophy noted. Urinalysis with only 0 to 3 wbc's on arrival. The cultures now, we have one set with alpha hemolytic strep and gram-negative tiffany and then another set with gram-positive cocci, yet to be fully identified and susceptibility tested. ASSESSMENT: Type 2 diabetes with end-stage renal disease with hemodialysis with tunneled catheter, right IJ position; recurrent episodes of fever with recent admission; flank pain with some kidney soft tissue stranding, but normal urinalysis. The patient has been identified with polymicrobial bacteremia including streptococci and gram-negative tiffany. The differential diagnosis includes pyelonephritis or another alternate intraabdominal inflammatory process. He does have transient elevation of transaminases, which could be related to the bacteremia. Colonization of the hemodialysis catheter is always a concern in this situation, but typically is not polymicrobial in nature. If polymicrobial, then typically all the organisms are represented in the samples from both draws, and in his case, the gram-negative only shows up in one of them. It is possible that the Streptococcus over grew the Escherichia coli or the gram-negative tiffany in one of the samples. Further sets have been submitted for culture. At one point, we will have to decide to remove the catheter. Evidently, a polymicrobial process would increase the concern for an intraabdominal process, inflammatory process, but the CT was done with contrast, so that is reassuring. I believe, we will have to remove the catheter and then wait at least 24 hours and reinsert a new one in the opposite side. Job ID: [id number]
[2019-05-27] MEDS: Atorvastatin Calcium 40 MG TAB PO SCH (21:58)
[2019-05-28 06:06] LABS: ALT (SGPT) 230 U/L (8-55); AST (SGOT) 71 U/L (5-34); Alkaline Phosphatase 148 U/L (40-150); Anion Gap 13 mmol/L (10-20); BUN (Urea Nitrogen) 19 mg/dL (8.4-25.7); Bilirubin, Total 0.8 mg/dL (0.2-1.2); Calc. Creatinine Clearance 20 mL/min (70-130); Calcium 8.3 mg/dL (7.8-10.44); Carbon Dioxide 26 mmol/L (23-31); Chloride 100 mmol/L (98-107); Estimated GFR-MDRD 18; Globulin 2.8 g/dL (2.4-3.5); Glucose 101 mg/dL (80-115); Potassium 4.4 mmol/L (3.5-5.1); Protein, Total 5.8 g/dL (5.8-8.1); Sodium 135 mmol/L (136-145)
[2019-05-28] MEDS: Meropenem 500 MG in Sodium Chloride 0.9% 100 ML IVPB SCH (06:08)
[2019-05-28] MEDS: Dextrose 5 %-0.45 % NaCl 1,000 ML IV SCH (06:15)
[2019-05-28 06:37] LABS: Hemoglobin 9.3 g/dL (14.0-18.0); Mean Corpuscular HGB CONC 33.3 g/dL (32.0-36.0); Mean Corpuscular Hemoglobin 31.8 pg (27.0-31.0); Mean Corpuscular Volume 95.4 fL (78.0-98.0); Mean Platelet Volume 8.8 fL (7.4-10.4); Platelet Count 125 thou/uL (130-400); RBC Distribution Width 14.9 % (11.5-14.5); Red Blood Cell (RBC) Count 2.92 mill/uL (4.70-6.10); White Blood Cell (WBC) Count 13.4 thou/uL (4.8-10.8)
[2019-05-28 06:51] LABS: Band 21 % (5-11); Eosinophils 10 % (0-10); Lymphocytes 11 % (21-51); MDiff Complete? YES; Monocytes 2 % (0-10); Neutrophil 56 % (42-75)
--- NOTE | 2019-05-28 08:02 | PDOC.FM ---
- Subjective Subjective: Pt reports abdominal discomfort is improved from yesterday. Overall feeling well with no new complaints or issues overnight. - Objective Vital Signs & Weight: Vital Signs (12 hours) Temp Pulse Ox 05/28/19 04:00 98.7 F 05/28/19 00:00 98.8 F 05/27/19 20:00 99.2 F 97 Weight Admit Weight 67.585 kg Weight 70 kg Most Recent Monitor Data Heart Rate from ECG 56 NIBP 117/67 NIBP BP-Mean 83 Respiration from ECG 0 SpO2 95 I&O: 05/27/19 05/28/19 05/29/19 06:59 06:59 06:59 Intake Total 2030.4 1615 Output Total 690 440 Balance 1340.4 1175 Result Diagrams: 05/30/19 06:20 05/30/19 06:20 Phys Exam - Physical Examination Constitutional: NAD HEENT: moist MMs, sclera anicteric Neck: no JVD, supple Respiratory: no wheezing, clear to auscultation bilateral Cardiovascular: RRR, no significant murmur Gastrointestinal: soft mild diffuse ttp, no rebound tenderness Musculoskeletal: no edema Neurological: normal sensation, moves all 4 limbs Psychiatric: normal affect Skin: no rash, normal turgor Dx/Plan (1) Septic shock Code(s): A41.9 - SEPSIS, UNSPECIFIED ORGANISM; R65.21 - SEVERE SEPSIS WITH SEPTIC SHOCK Status: Acute (2) Adjustment disorder Code(s): F43.20 - ADJUSTMENT DISORDER, UNSPECIFIED Status: Acute (3) Diarrhea Code(s): R19.7 - DIARRHEA, UNSPECIFIED Status: Acute (4) Hypotension Status: Acute (5) Leukocytosis Code(s): D72.829 - ELEVATED WHITE BLOOD CELL COUNT, UNSPECIFIED Status: Acute Qualifiers: Leukocytosis type: eosinophilia Qualified Code(s): D72.1 - Eosinophilia (6) Transaminitis Code(s): R74.0 - NONSPEC ELEV OF LEVELS OF TRANSAMNS & LACTIC ACID DEHYDRGNSE Status: Acute (7) Diabetes mellitus, type II Status: Chronic (8) ESRD (end stage renal disease) Code(s): N18.6 - END STAGE RENAL DISEASE Status: Chronic (9) HTN (hypertension) Code(s): I10 - ESSENTIAL (PRIMARY) HYPERTENSION Status: Chronic - Plan Plan: Septic Shock, improving A- Pt is now stable off pressors and IVF. source of infection likely dialysis port. Procal of 161 however is impressive. ID is consulted. BCx growing alpha hemolytic strep and gm negative rods, further speciation and sensitivities are pending. P- continue merem and Vanc -f/u ID recs, much appreciated -f/u Stool studies -possibly will pull port vs. ABX lock it per ID/Nephro recs Diarrhea A- stool studies pending. this is likely contributing to hypotension, continue IVF P- f/u stool studies Normocytic anemia A- likely multifactoral. Pt is ESRD and has positive FOBT P- will monitor h/h -continue epoetin and iron supplementation -recommend colonoscopy outpt Elevated LFT A- Possibly related to hypotensive episode. Hep workup at last hospitalization negative, RUQ US showed normal echogenic texture P- continue to monitor DM2 -continue home meds ESRD -Dr Hernandez is consulted, continue HD Leukocytosis - abx and work up as above Adjustment d/o -home SSRI HLD -home statin Dispo: patient is stable and improving, stable for transfer to medical floor. orders are in. Addendum - Attending - Attending Attestation Date/Time: 05/31/19 0920 I personally evaluated the patient and discussed the management with Dr. Perez on 05/28/19. I agree with the History, Examination, Assessment and Plan documented above with any addition or exceptions noted below. More alert. BP's improved, off pressors. Stable to move to floor when cleared by Critical care. Source of sepsis not obvious but prior catheter suspected. Discuss with Neph if new graft ready for initiation.
[2019-05-28] MEDS: Ferrous Sulfate 325 MG TAB PO SCH (08:20)
[2019-05-28] MEDS: Amlodipine 10 MG TAB PO SCH (08:21)
[2019-05-28] MEDS: Calcitriol 0.25 MCG CAP PO SCH (08:21)
[2019-05-28] MEDS: Insulin Glargine 17 UNITS in Pre-Filled Syringe 1 EACH SC SCH (08:31)
--- NOTE | 2019-05-28 09:30 | PRG ---
DATE OF SERVICE: 05/28/2019 SUBJECTIVE: Mr. Isaiah Hoskins is a 69-year-old male with ESRD and followed by the Renal Service for his maintenance hemodialysis. He underwent hemodialysis yesterday without any difficulty. Fluid removal was done. He also came in with fever. He was also noted to be bacteremic. As per recommendation by ID, consider removing the catheter and place him on a catheter free for at least 24 hours. We will consider this tomorrow after his dialysis. We will also attempt to use his AV fistula, see if it will be functional. After the said dialysis tomorrow, consider referring to Surgery for dialysis catheter removal. No new complaints today. He denies any chest pain or shortness of breath. He tells me he feels better. OBJECTIVE: VITAL SIGNS: Blood pressure 148/84, heart rate 71, respiratory rate 9, pulse ox 93%, and temperature 98.1. GENERAL: Awake, alert, and comfortable, not in distress. SKIN: Adequate turgor. HEENT: He has a slightly pale conjunctivae. Anicteric sclerae. NECK: No neck mass. No carotid bruits. No JVD. CHEST: No deformities. LUNGS: Clear breath sounds. No wheezing. No crackles. HEART: Normal sinus rhythm. No murmur. No gallops. No rubs. ABDOMEN: Globular, soft, and nontender. No masses. EXTREMITIES: No edema. No deformities. MEDICATIONS: Medications of May 28, 2019, reviewed. LABORATORY DATA: Laboratories of May 28, 2019, white count 13.4 and hemoglobin 9.3. Sodium 135, potassium 4.4, chloride 100, carbon dioxide 26, BUN 19, creatinine 3.47, AST 71, ALT 230, and albumin 3.0. ASSESSMENT AND PLAN: 1. End-stage renal disease, stable. Continue current hemodialysis regimen. Consider dialysis catheter removal after dialysis tomorrow. We will also attempt to use the arteriovenous fistula tomorrow. 2. Anemia. Continuing weekly Epogen. Continue iron supplementation. 3. Bacteremia, currently on IV antibiotics. Infectious Disease is following. As per recommendation, consider removing dialysis catheter. Agree with current management. Job ID: [id number]
--- NOTE | 2019-05-28 17:28 | PRG ---
DATE OF SERVICE: 05/28/2019 SERVICE: Pulmonary Medicine. INTERVAL HISTORY: The patient is doing really well from breathing standpoint. No complaints of shortness of breath or chest discomfort. His blood sugars are better. He remains in the ICU because there is simply no available bed on the medical unit. That being said, apparently, he will be moving up today. PHYSICAL EXAMINATION: VITAL SIGNS: Afebrile, pulse 69, blood pressure 135/81, respirations 18, saturation 99% on room air. GENERAL: The patient is awake and alert, in no apparent distress. LUNGS: Very good air entry without any prolonged expiratory phase or wheezing present. HEART: Normal rate. Regular. ABDOMEN: Soft. Nontender and nondistended. Bowel sounds are positive. MUSCULOSKELETAL: No cyanosis or clubbing. No pitting in the bilateral lower extremities. NEUROLOGIC: Grossly nonfocal. LABORATORY DATA: WBC 13.4, hemoglobin 9.3, platelets 125,000 and gently downtrending. INR 1.1. Basic metabolic profile is unremarkable except for creatinine of 3.47. Blood sugar is much improved and ranges from 101 to 164. Multiple different organisms were identified in the blood culture including Micrococcus, alpha Streptococcus, and Acinetobacter. These are pansensitive organisms for the most part. ASSESSMENT: 1. Septic shock, resolved. 2. Bacteremia, polymicrobial. 3. End-stage renal disease. 4. Type 2 diabetes mellitus. DISCUSSION AND PLAN: At this point, the patient is stable for transition out of the ICU to the medical unit. He has no further requirements for inpatient Pulmonary/Critical Care opinion, and I will sign off. Please call with additional questions or concerns through time. Job ID: [id number] [facility]
--- NOTE | 2019-05-28 17:45 | PRG ---
DATE OF SERVICE: SUBJECTIVE: Feeling better. No diarrhea. No respiratory symptoms. Right upper extremity a little bit swollen. OBJECTIVE: VITAL SIGNS: T-max 98.4. Other vital signs are normal. GENERAL: Awake, alert, and oriented. LUNGS: Clear. HEART: S1 and S2. Regular rate. Right forearm with 2+ swelling. This was after the utilization of the AV fistula a couple of days ago. ABDOMEN: Soft, not distended. LABORATORY DATA: White cell count is down to 13.4, hemoglobin 9.3, platelets 195. Creatinine 3.47. AST is 71, ALT 230. Microbiology with alpha strep and Acinetobacter lwoffii with a broad susceptibility profile. The other blood culture with Micrococcus luteus, likely a contaminant. ASSESSMENT AND DISCUSSION: Type 2 diabetes; end-stage renal disease, on hemodialysis with tunneled catheter, now with what appears to be a functional AV fistula, although this is not yet totally secure according to the dialysis nurse and admission with fever, flank pain, some kidney stranding and some dysuria. The bacteremia is polymicrobial, but one of the sets represents contamination of the sample rather than true bacteremia. The other set may be true bacteremia, but not sure yet. He may have had pyelonephritis with cystitis. Repeat two sets of blood cultures thus far negative and I would advise continuation of treatment with probably quinolone or Bactrim adjusted for renal function, probably quinolone in his case such as levofloxacin. Treat for about 7 to 10 days. Regarding the catheter, I think obviously if the AV fistula is secure, the catheter would not be needed and can be removed any time. If they do not feel that the AV fistula access is guaranteed, then I would just keep this catheter in since the catheter associated bacteremia appears to be less likely. Job ID: [id number]
[2019-05-28] MEDS: Atorvastatin Calcium 40 MG TAB PO SCH (21:48)
[2019-05-29] MEDS: Dextrose 5 %-0.45 % NaCl 1,000 ML IV SCH (02:42)
[2019-05-29 06:14] LABS: #Basophils 0.1 thou/uL (0.0-0.2); #Eosinphils 1.7 thou/uL (0.0-0.7); #Lymphocytes 1.6 thou/uL (1.20-3.40); #Neutrophils 5.5 thou/uL (1.40-6.50); %Basophils 0.6 % (0.0-1.0); %Eosinophils 16.8 % (0.0-10.0); %Lymphocytes 16.6 % (21.0-51.0); %Monocytes 10.4 % (0.0-10.0); %Neutrophils 55.6 % (42.0-75.0); Hemoglobin 9.2 g/dL (14.0-18.0); Mean Corpuscular HGB CONC 34.1 g/dL (32.0-36.0); Mean Corpuscular Hemoglobin 32.1 pg (27.0-31.0); Mean Corpuscular Volume 94.2 fL (78.0-98.0); Mean Platelet Volume 8.6 fL (7.4-10.4); Platelet Count 132 thou/uL (130-400); RBC Distribution Width 14.7 % (11.5-14.5); Red Blood Cell (RBC) Count 2.87 mill/uL (4.70-6.10); White Blood Cell (WBC) Count 9.8 thou/uL (4.8-10.8)
[2019-05-29 06:22] VITALS: BMI 26.2
[2019-05-29 06:34] LABS: Vancomycin, Random 10.1 ug/mL (See Comment)
[2019-05-29 06:36] LABS: ALT (SGPT) 163 U/L (8-55); AST (SGOT) 33 U/L (5-34); Albumin 3.1 g/dL (3.4-4.8); Alkaline Phosphatase 155 U/L (40-150); Anion Gap 13 mmol/L (10-20); BUN (Urea Nitrogen) 28 mg/dL (8.4-25.7); Bilirubin, Total 0.6 mg/dL (0.2-1.2); Calc. Creatinine Clearance 18 mL/min (70-130); Calcium 8.2 mg/dL (7.8-10.44); Carbon Dioxide 25 mmol/L (23-31); Chloride 101 mmol/L (98-107); Estimated GFR-MDRD 14; Globulin 2.7 g/dL (2.4-3.5); Glucose 64 mg/dL (80-115); Protein, Total 5.8 g/dL (5.8-8.1); Sodium 135 mmol/L (136-145)
--- NOTE | 2019-05-29 07:46 | PDOC.FM ---
- Subjective Subjective: Pt reports good rest and feeling well this AM. Reports he feels well enough to go home. Denies any further episodes of diarrhea. Denies any problems at this time. - Objective Vital Signs & Weight: Vital Signs (12 hours) Temp Pulse Resp BP BP Pulse Ox 05/29/19 05:00 98.4 F 69 18 147/76 H 95 05/29/19 00:00 98.5 F 70 18 136/73 92 L 05/28/19 20:00 98.5 F 70 18 151/76 H 98 Weight Admit Weight 67.585 kg Weight 73.981 kg Most Recent Monitor Data Heart Rate from ECG 67 NIBP 135/75 NIBP BP-Mean 95 Respiration from ECG 16 SpO2 98 I&O: 05/28/19 05/29/19 05/30/19 06:59 06:59 06:59 Intake Total 1615 2170 Output Total 440 875 Balance 1175 1295 Result Diagrams: 05/29/19 05:59 05/29/19 05:58 Phys Exam - Physical Examination Constitutional: NAD HEENT: moist MMs, sclera anicteric Neck: no nodes, no JVD Respiratory: no wheezing, no rales Cardiovascular: RRR, no significant murmur Gastrointestinal: soft, non-tender Musculoskeletal: pulses present Neurological: normal sensation, moves all 4 limbs Psychiatric: normal affect, A&O x 3 Skin: no rash, normal turgor Dx/Plan (1) Septic shock Code(s): A41.9 - SEPSIS, UNSPECIFIED ORGANISM; R65.21 - SEVERE SEPSIS WITH SEPTIC SHOCK Status: Acute (2) Adjustment disorder Code(s): F43.20 - ADJUSTMENT DISORDER, UNSPECIFIED Status: Acute (3) Diarrhea Code(s): R19.7 - DIARRHEA, UNSPECIFIED Status: Acute (4) Hypotension Status: Acute (5) Leukocytosis Code(s): D72.829 - ELEVATED WHITE BLOOD CELL COUNT, UNSPECIFIED Status: Acute Qualifiers: Leukocytosis type: eosinophilia Qualified Code(s): D72.1 - Eosinophilia (6) Transaminitis Code(s): R74.0 - NONSPEC ELEV OF LEVELS OF TRANSAMNS & LACTIC ACID DEHYDRGNSE Status: Acute (7) Diabetes mellitus, type II Status: Chronic (8) ESRD (end stage renal disease) Code(s): N18.6 - END STAGE RENAL DISEASE Status: Chronic (9) HTN (hypertension) Code(s): I10 - ESSENTIAL (PRIMARY) HYPERTENSION Status: Chronic - Plan Plan: Septis A- Was in shock on presentation but pt is now stable off pressors and IVF, no longer meeting SIRS criteria. source of infection possibly dialysis port vs. c. diff infection. BCx shows two organisms likely contaminate and one alpha hemolytic strep which is possibly true bacteremia. New cultures have not resulted yet. P- DC merem and Vanc, start Levofloxacin per Dr. Mckeon recs -start PO Vanc for c. diff -f/u ID recs, much appreciated -possibly will pull port today depending on how R AV fistula works at dialysis c. diff colitis A- Pt presented with diarrhea and positive FOBT. c.diff antigen and toxin are positive. Pt denies recent diarhea since admission P- will start 10 day course of PO Vanc Normocytic anemia A- likely multifactoral. Pt is ESRD and has positive FOBT P- will monitor h/h -continue epoetin and iron supplementation -recommend colonoscopy outpt Elevated LFT A- improving. Possibly related to hypotensive episode. Hep workup at last hospitalization negative, RUQ US showed normal echogenic texture P- continue to monitor HTN A- BPs have now increased to hypertensive range. Pt was previously on 4 home meds, amlodipine has already been started. P- will restart losartan and coreg -hold clonidine for now HFpEF A- Pt previously unable to tolerate home meds 2/2 hypotension/shock. Now BPs elevated P- will restart losartan and coreg (coreg at reduced dose from 12 bid to 3.125 bid because pt has boderline low HR) DM2 -continue home meds ESRD -Dr Hernandez is consulted, continue HD Leukocytosis - abx and work up as above Adjustment d/o -home SSRI HLD -home statin Dispo: possibly home today after dialysis vs. tomorrow Addendum - Attending - Attending Attestation Date/Time: 05/29/19 5733 I personally evaluated the patient and discussed the management with Dr. Perez. I agree with the History, Examination, Assessment and Plan documented above with any addition or exceptions noted below. Pt. in dialysis. Tolerating dialysis well with graft. If OK with Neph and ID, may d/c home later today on p.o. abx.
[2019-05-29] MEDS: Vancomycin HCl 25 MG/ML Oral PO SCH ×3 (08:00→18:46)
[2019-05-29] MEDS: Insulin Glargine 17 UNITS in Pre-Filled Syringe 1 EACH SC SCH (09:00)
--- NOTE | 2019-05-29 09:50 | PRG ---
DATE OF SERVICE: 05/29/2019 SUBJECTIVE: Mr. Isaiah Hoskins is a 69-year-old male with ESRD and followed up by the Renal Service for his maintenance hemodialysis. Due to his bacteremia, we planned to remove the dialysis catheter. I attempted to use the AV fistula today, it was functional. We will hold off replacement of a new dialysis catheter. However, we will proceed with having the dialysis catheter removed. He also was diagnosed to have C diff colitis. No new complaints today. No chest pain or shortness of breath. OBJECTIVE: VITAL SIGNS: Blood pressure 157/77, heart rate 66, respiratory rate 18, temperature 98.3, pulse ox 92%. GENERAL EXAM: The patient is awake, alert, comfortable, not in distress. SKIN: Adequate turgor. HEENT: He has a slightly pale conjunctivae. Anicteric sclerae. NECK: No neck mass. No carotid bruits. No JVD. CHEST: No deformities. LUNGS: Clear breath sounds. No wheezing. No crackles. HEART: Normal sinus rhythm. No murmur. No gallops. No rubs. ABDOMEN: Globular, soft. Nontender. No masses. EXTREMITIES: No edema. No deformities. MEDICATIONS: Medications of May 29, 2019, was reviewed. LABORATORY DATA: Laboratories of May 29, 2019; white count 9.8, hemoglobin 9.2. Sodium 135, potassium 4, chloride 101, carbon dioxide 25, BUN 48, creatinine 4.26, glucose 64. AST is 33, ALT is 163. Albumin 3.1. ASSESSMENT AND PLAN: 1. End-stage renal disease, stable, tolerating current hemodialysis regimen. We have successfully used the AV fistula. Continue dialysis regimen on Monday, Monday, and Monday. We will consult Surgery for removal of the hemodialysis catheter. 2. Bacteremia, currently on antibiotics. 3. Clostridium difficile colitis, currently on p.o. vancomycin. 4. Anemia, continue weekly Epogen. Agree with current management. Recheck basic metabolic panel and CBC in the morning. Job ID: [id number]
[2019-05-29] MEDS: Amlodipine 10 MG TAB PO SCH (13:39)
[2019-05-29] MEDS: Ferrous Sulfate 325 MG TAB PO SCH (13:40)
[2019-05-29] MEDS: Calcitriol 0.25 MCG CAP PO SCH (13:40)
[2019-05-29] MEDS: Carvedilol 3.125 MG TAB PO SCH ×2 (13:40→16:52)
[2019-05-29] MEDS ORDERED: Lidocaine 1% (PF) 30 ML VIAL ONE (14:16)
[2019-05-29] MEDS ORDERED: Meropenem 500 MG in Sodium Chloride 0.9% 100 ML IVPB SCH (18:00)
[2019-05-29] MEDS: Atorvastatin Calcium 40 MG TAB PO SCH (20:41)
[2019-05-29] MEDS ORDERED: Terazosin HCl 1 MG CAP PO SCH (21:00)
[2019-05-29] MEDS ORDERED: Losartan 25 MG TAB PO SCH (21:00)
[2019-05-30] MEDS: Vancomycin HCl 25 MG/ML Oral PO SCH ×3 (01:14→12:17)
[2019-05-30 06:38] LABS: Hemoglobin 9.4 g/dL (14.0-18.0); Mean Corpuscular HGB CONC 33.8 g/dL (32.0-36.0); Mean Corpuscular Hemoglobin 31.7 pg (27.0-31.0); Mean Corpuscular Volume 93.8 fL (78.0-98.0); Mean Platelet Volume 8.5 fL (7.4-10.4); Platelet Count 149 thou/uL (130-400); RBC Distribution Width 14.8 % (11.5-14.5); Red Blood Cell (RBC) Count 2.96 mill/uL (4.70-6.10); White Blood Cell (WBC) Count 6.6 thou/uL (4.8-10.8)
[2019-05-30 07:00] LABS: ALT (SGPT) 118 U/L (8-55); AST (SGOT) 24 U/L (5-34); Albumin 3.1 g/dL (3.4-4.8); Alkaline Phosphatase 143 U/L (40-150); Anion Gap 11 mmol/L (10-20); BUN (Urea Nitrogen) 22 mg/dL (8.4-25.7); Bilirubin, Total 0.6 mg/dL (0.2-1.2); Calc. Creatinine Clearance 20 mL/min (70-130); Calcium 8.5 mg/dL (7.8-10.44); Carbon Dioxide 27 mmol/L (23-31); Chloride 103 mmol/L (98-107); Estimated GFR-MDRD 18; Globulin 2.7 g/dL (2.4-3.5); Glucose 104 mg/dL (80-115); Potassium 4.2 mmol/L (3.5-5.1); Protein, Total 5.8 g/dL (5.8-8.1); Sodium 137 mmol/L (136-145)
[2019-05-30 07:59] LABS: Band 9 % (5-11); Eosinophils 13 % (0-10); Lymphocytes 22 % (21-51); MDiff Complete? YES; Monocytes 16 % (0-10); Neutrophil 39 % (42-75); Platelet Morphology Comment Appears Adequate; Polychromasia SLIGHT = 2-3 cells (100X) (0-2/hpf); Reactive Lymphocytes 1 % (0-10)
--- NOTE | 2019-05-30 08:18 | PDOC.FM ---
- Subjective Subjective: pt continues to feel well with no complaints at all. No diarrhea, no GI pain. No fever/chills. - Objective Vital Signs & Weight: Weight Admit Weight 67.585 kg Weight 70 kg Most Recent Monitor Data Heart Rate from ECG 67 NIBP 135/75 NIBP BP-Mean 95 Respiration from ECG 16 SpO2 98 I&O: 05/29/19 05/30/19 05/31/19 06:59 06:59 06:59 Intake Total 2170 700 Output Total 875 3800 Balance 1295 -3100 Result Diagrams: 05/30/19 06:20 05/30/19 06:20 Phys Exam - Physical Examination Constitutional: NAD HEENT: moist MMs, sclera anicteric Neck: no JVD, supple Respiratory: no wheezing, clear to auscultation bilateral Cardiovascular: RRR, no significant murmur Gastrointestinal: soft, non-tender Musculoskeletal: no edema, pulses present Neurological: non-focal, normal sensation Lymphatic: no nodes Psychiatric: normal affect, A&O x 3 Skin: no rash, normal turgor Dx/Plan (1) Septic shock Code(s): A41.9 - SEPSIS, UNSPECIFIED ORGANISM; R65.21 - SEVERE SEPSIS WITH SEPTIC SHOCK Status: Acute (2) Adjustment disorder Code(s): F43.20 - ADJUSTMENT DISORDER, UNSPECIFIED Status: Acute (3) Diarrhea Code(s): R19.7 - DIARRHEA, UNSPECIFIED Status: Acute (4) Hypotension Status: Acute (5) Leukocytosis Code(s): D72.829 - ELEVATED WHITE BLOOD CELL COUNT, UNSPECIFIED Status: Acute Qualifiers: Leukocytosis type: eosinophilia Qualified Code(s): D72.1 - Eosinophilia (6) Transaminitis Code(s): R74.0 - NONSPEC ELEV OF LEVELS OF TRANSAMNS & LACTIC ACID DEHYDRGNSE Status: Acute (7) Diabetes mellitus, type II Status: Chronic (8) ESRD (end stage renal disease) Code(s): N18.6 - END STAGE RENAL DISEASE Status: Chronic (9) HTN (hypertension) Code(s): I10 - ESSENTIAL (PRIMARY) HYPERTENSION Status: Chronic - Plan Plan: Sepsis A- Was in shock on presentation but pt is now stable off pressors and IVF, no longer meeting SIRS criteria. source of infection possibly dialysis port vs. c. diff infection. BCx shows two organisms likely contaminate and one alpha hemolytic strep which is possibly true bacteremia. New cultures show NG at 48hrs. P- continue Levofloxacin per Dr. Mckeon recs -PO Vanc for c. diff -f/u ID recs, much appreciated c. diff colitis A- Pt presented with diarrhea and positive FOBT. c.diff antigen and toxin are positive. Pt denies recent diarhea since admission P- 10 day course of PO Vanc Normocytic anemia A- likely multifactoral. Pt is ESRD and has positive FOBT P- will monitor h/h -continue epoetin and iron supplementation -recommend colonoscopy outpt Elevated LFT A- improving. Possibly related to hypotensive episode. Hep workup at last hospitalization negative, RUQ US showed normal echogenic texture P- continue to monitor HTN A- BPs have now increased to hypertensive range. Pt was previously on 4 home meds, amlodipine has already been started. P- continue losartan and coreg -continue amlodipine -hold clonidine for now HFpEF A- Pt previously unable to tolerate home meds 2/2 hypotension/shock. Now BPs elevated P- continue losartan and coreg (coreg at reduced dose from 12 bid to 3.125 bid because pt has boderline low HR) DM2 -continue home meds ESRD -Dr Hernandez is consulted, continue HD, AVF used yesterday and worked, R Tunnel cath has been pulled Leukocytosis - abx and work up as above Adjustment d/o -home SSRI HLD -home statin Dispo: home today Addendum - Attending - Attending Attestation Date/Time: 05/30/19 1013 I personally evaluated the patient and discussed the management with Dr. Perez. I agree with the History, Examination, Assessment and Plan documented above with any addition or exceptions noted below. Stable for d/c home today.
[2019-05-30] MEDS: Carvedilol 3.125 MG TAB PO SCH (08:58)
[2019-05-30] MEDS: Amlodipine 10 MG TAB PO SCH (08:58)
[2019-05-30] MEDS: Calcitriol 0.25 MCG CAP PO SCH (09:00)
[2019-05-30] MEDS: Ferrous Sulfate 325 MG TAB PO SCH (09:00)
[2019-05-30] MEDS: Insulin Glargine 17 UNITS in Pre-Filled Syringe 1 EACH SC SCH (09:01)
--- NOTE | 2019-05-30 09:26 | PRG ---
DATE OF SERVICE: 05/30/2019 SERVICE: Renal Medicine. SUBJECTIVE: Mr. Isaiah Hoskins is a 69-year-old male with ESRD and followed up by the Renal Service for his maintenance hemodialysis. He was admitted for fever and bacteremia. His dialysis catheter has been pulled out yesterday by his surgeon. We were able to access his AV fistula without any difficulty. He also was diagnosed with C difficile colitis, currently being treated with oral vancomycin. This morning, he voices no new complaints. No chest pain or shortness of breath. OBJECTIVE: VITAL SIGNS: Blood pressure 150/74, heart rate 67, respiratory rate 18, temperature 98.2, and pulse ox 97%. GENERAL: Noted to be awake, alert, comfortable, not in distress. SKIN: Adequate turgor. HEENT: Pinkish conjunctivae. Anicteric sclerae. NECK: No neck mass. No carotid bruits. No JVD. CHEST: No deformities. LUNGS: Clear breath sounds. HEART: Normal sinus rhythm. No murmur. No gallops. No rubs. ABDOMEN: Globular, soft, and nontender. No masses. EXTREMITIES: No edema. No deformities. MEDICATIONS: Medications of May 30, 2019, reviewed. LABORATORY DATA: Laboratories of May 30, 2019; white count 6.6, hemoglobin 9.4. Sodium 137, potassium 4.2, chloride 103, carbon dioxide 27, BUN 22, creatinine 3.48, glucose 104, calcium 8.5, AST 24, ALT 118, and albumin 3.1. ASSESSMENT AND PLAN: 1. End-stage renal disease, stable, tolerating current hemodialysis regimen. Underwent hemodialysis yesterday without any difficulty. Continue current hemodialysis regimen. Continue fluid removal as needed. 2. Anemia, on weekly Epogen. 3. Status post bacteremia, doing well. Please note, a cuffed hemodialysis catheter has been pulled. 4. Clostridium difficile colitis, on oral vancomycin. Overall, agree with current management for possible discharge today. Job ID: [id number]
--- NOTE | 2019-05-30 09:58 | OP ---
DATE OF PROCEDURE: 05/29/2019 PREOPERATIVE DIAGNOSIS: Functioning right Jarocho fistula, placed 01/29/2019 and need of hemodialysis catheter removal, being treated for endocarditis by Dr. Garrido. POSTOPERATIVE DIAGNOSIS: Functioning right Jarocho fistula, placed 01/29/2019 and need of hemodialysis catheter removal, being treated for endocarditis by Dr. Garrido. PROCEDURE PERFORMED: Removal of right internal jugular cuffed tunneled dialysis catheter. ANESTHESIA: 1% Xylocaine with epinephrine. Note, there was no evidence of infection at the site and catheter was not cultured. DESCRIPTION OF PROCEDURE: With the patient at bedside, sutures were removed. Exit site of the catheter, right chest was prepared with alcohol. Local anesthetic was infiltrated in the skin and subcutaneous tissue. Catheter and cuff dissected free, removed and pressure held to hemostatic. The patient tolerated the procedure well without complications. Job ID: [id number]
[2019-05-30 11:19] VITALS: BP 137/72; TEMP 98.6
--- NOTE | 2019-05-31 13:12 | DIS ---
DATE OF ADMISSION: 05/25/2019 DATE OF DISCHARGE: 05/30/2019 RESIDENT: Daniel Perez M.D. DISCHARGE ATTENDING: Daniel Talavera M.D. CONSULTS: 1. General Surgery, Dr. Horton. 2. Infectious Disease, Dr. Mckeon. 3. Nephrology, Dr. Hernandez. PRIMARY DIAGNOSIS: Septic shock. SECONDARY DIAGNOSES: 1. C diff colitis. 2. Normocytic anemia. 3. Elevated LFTs. 4. Hypertension. 5. Heart failure with preserved ejection fraction. 6. Type 2 diabetes. 7. End-stage renal disease. 8. Leukocytosis. 9. Adjustment disorder. 10. Hyperlipidemia. DISCHARGE MEDICATIONS: 1. Terazosin 2 mg p.o. at bedtime. 2. Calcitriol 0.25 mcg p.o. daily. 3. Amlodipine 10 mg p.o. daily. 4. Nitroglycerin 0.3 mg sublingual q.5 minutes p.r.n. 5. Atorvastatin 40 mg p.o. at bedtime. 6. Erythropoietin 7500 units subcutaneous q.7 days. 7. Sertraline 50 mg p.o. daily. 8. Ferrous sulfate 65 mg p.o. daily. 9. Losartan 50 mg p.o. daily. 10. Carvedilol 3.125 mg p.o. b.i.d. with meals. 11. Levofloxacin 500 mg p.o. daily 4 tablets. 12. Vancomycin hydrochloride 125 mg p.o. q.6 hours. 13. Insulin glargine 17 units subcutaneous daily. DISCONTINUED MEDICATIONS: 1. Aspirin 81 mg p.o. daily. 2. Insulin glargine 25 units subcutaneous daily. 3. Clonidine 0.2 mg p.o. b.i.d. 4. Carvedilol 12.5 mg p.o. b.i.d. PROCEDURES: 1. On 05/25/2019, chest x-ray, impression: The heart size is borderline. The right-sided dialysis catheter remains in place. The lungs are well-expanded without lobar consolidation, pneumothoraces, ofe pulmonary edema or pleural effusions. 2. On 05/25/2019, abdomen and pelvis CT, impression: Bilateral perinephric stranding and small renal cystic lesions as described above. Moderate prostatic hypertrophy. No evidence of acute process. HOSPITAL COURSE: This is a 69-year-old male with recent history of bacteremia, thought to be secondary to possible endocarditis who presented in septic shock to the ER. The patient was admitted, put on fluids, pressors, vancomycin, and meropenem and showed great improvement with that. Eventually, fluids and pressors were weaned off, and patient was switched to levofloxacin per recommendations by Infectious Disease. It was thought that the source of infection was likely his tunneled catheter, which was used for dialysis. Blood cultures grew 2 organisms, which were thought to be skin gina contaminant and 1 organism alpha hemolytic strep, which may be contaminated or may not. Second cultures were drawn after antibiotics were started and were negative. Additionally, hospital stay was notable for positive fecal occult blood test and positive C diff antigen and antibody. The patient was started on p.o. vancomycin. Regarding anemia, the patient was stable, and home aspirin was held to be restarted by primary care provider. The patient also had some elevated liver function enzymes, which were thought to be secondary to ischemic injury and presenting shock as patient had a workup on previous admission including right upper quadrant ultrasound which was within normal limits. Otherwise, chronic medical conditions were treated with home medications except for hypertension and heart failure medications which were adjusted due to the patient's shock. The patient's Coreg was reduced from 12.5 mg b.i.d. to 3.125 mg b.i.d. because the patient had borderline low heart rate, and clonidine was not restarted in the hospital as the patient was still recovering from shock. Additionally, while in hospital, the patient's dose was adjusted. All of these home medications that were adjusted and some held in the hospital are to be restarted by primary care physician when he sees suitable. DISPOSITION: Stable. DISCHARGE INSTRUCTIONS: Location: Home. Activity: As tolerated. Diet: Renal diet. Follow up with Steve Smith MD, in 3 days; Jesus Mckeon MD, in 10 days; Ari Jones MD, in 10 days; and follow up with regular hemodialysis appointments. Job ID: [id number]
== END 2019-05-30 13:57 | disposition home or self-care (01) | DRG 871 ==
LOC: ERS 00:54 → CCU 03:40 → T4-A 05-28 12:53
PROVIDERS: ADMIT Student in an Organized Health Care Education/Training Program; ATTEND Student in an Organized Health Care Education/Training Program
PROC: 3E033XZ Introduction of Vasopressor into Peripheral Vein, Percutaneous Approach (ICD-10-PCS; 2019-05-25)
PROC: 5A1D70Z Performance of Urinary Filtration, Intermittent, Less than 6 Hours Per Day (ICD-10-PCS; principal; 2019-05-27)
PROC: 0JPT3XZ Removal of Tunneled Vascular Access Device from Trunk Subcutaneous Tissue and Fascia, Percutaneous Approach (ICD-10-PCS; 2019-05-29)
DX: A40.9 Streptococcal sepsis, unspecified (principal); N18.6 End stage renal disease; R65.21 Severe sepsis with septic shock; I33.0 Acute and subacute infective endocarditis; A04.8 Other specified bacterial intestinal infections; I13.2 Hypertensive heart and chronic kidney disease with heart failure and with stage 5 chronic kidney disease, or end stage renal disease; I50.32 Chronic diastolic (congestive) heart failure; E11.22 Type 2 diabetes mellitus with diabetic chronic kidney disease; E78.5 Hyperlipidemia, unspecified; R74.0 Nonspecific elevation of levels of transaminase and lactic acid dehydrogenase [LDH]; F43.20 Adjustment disorder, unspecified; Z99.2 Dependence on renal dialysis; Z79.82 Long term (current) use of aspirin; Z79.4 Long term (current) use of insulin; Z90.49 Acquired absence of other specified parts of digestive tract; Z79.899 Other long term (current) drug therapy; E86.0 Dehydration; D63.1 Anemia in chronic kidney disease
CPT/HCPCS: 36415; 36416; 36569; 51702; 71045; 74177; 80053; 80202; 81003; 81015; 82274; 82550; 82805; 83605; 83630; 84145; 84484; 85025; 85610; 85730; 87040; 87077; 87086; 87149; 87186; 87324; 87328; 87329; 87449; 90935; 93005; 96365; 96367; 96375; G0257; J1644; J1815; J2001; J2185; J2405; J2543; J3370; J3490; J7070; Q5105; Q9966

== ENCOUNTER 2021-02-24 09:52 | Outpatient (CLI) | payer MEDICARE, OTHER | END 2021-02-24 09:53 | disposition home or self-care (01) | LOC: BICRAD 09:52 | PROVIDERS: ATTEND Internal Medicine Nephrology | DX: N18.6 End stage renal disease (principal); R93.41 Abnormal radiologic findings on diagnostic imaging of renal pelvis, ureter, or bladder | CPT/HCPCS: 74018 ==

== ENCOUNTER 2021-11-08 13:06 | Emergency (ER) | payer MEDICARE, OTHER ==
[2021-11-08 15:32] LABS: #Basophils 0.1 thou/uL (0.0-0.2); #Eosinphils 2.1 thou/uL (0.0-0.7); #Lymphocytes 2.3 thou/uL (1.20-3.40); #Monocytes 0.7 thou/uL (0.11-0.59); #Neutrophils 6.3 thou/uL (1.40-6.50); %Basophils 0.5 % (0.0-1.0); %Eosinophils 18.4 % (0.0-10.0); %Lymphocytes 19.8 % (21.0-51.0); %Monocytes 5.8 % (0.0-10.0); %Neutrophils 55.5 % (42.0-75.0); Hemoglobin 11.3 g/dL (14.0-18.0); Mean Corpuscular HGB CONC 34.7 g/dL (32.0-36.0); Mean Corpuscular Hemoglobin 32.6 pg (27.0-31.0); Mean Corpuscular Volume 93.8 fL (78.0-98.0); Mean Platelet Volume 6.9 fL (7.4-10.4); Platelet Count 279 thou/uL (130-400); RBC Distribution Width 12.5 % (11.5-14.5); Red Blood Cell (RBC) Count 3.48 mill/uL (4.70-6.10); White Blood Cell (WBC) Count 11.4 thou/uL (4.8-10.8)
[2021-11-08 16:06] LABS: ALT (SGPT) 15 U/L (8-55); AST (SGOT) 9 U/L (5-34); Albumin 4.1 g/dL (3.4-4.8); Alkaline Phosphatase 69 U/L (40-110); Anion Gap 14 mmol/L (10-20); BUN (Urea Nitrogen) 50 mg/dL (8.4-25.7); Bilirubin, Total 0.4 mg/dL (0.2-1.2); Calc. Creatinine Clearance 0 mL/min (70-130); Calcium 9.8 mg/dL (7.8-10.44); Carbon Dioxide 25 mmol/L (23-31); Chloride 102 mmol/L (98-107); Globulin 3.7 g/dL (2.4-3.5); Glucose 162 mg/dL (80-115); Magnesium 2.3 mg/dL (1.6-2.6); Phosphorus 2.4 mg/dL (2.3-4.7); Potassium 4.7 mmol/L (3.5-5.1); Protein, Total 7.8 g/dL (5.8-8.1); Sodium 136 mmol/L (136-145)
== END 2021-11-08 17:15 | disposition home or self-care (01) ==
LOC: ERS 13:06
DX: I12.9 Hypertensive chronic kidney disease with stage 1 through stage 4 chronic kidney disease, or unspecified chronic kidney disease (principal); E11.22 Type 2 diabetes mellitus with diabetic chronic kidney disease; N18.9 Chronic kidney disease, unspecified; D63.1 Anemia in chronic kidney disease; Z99.2 Dependence on renal dialysis; Z79.82 Long term (current) use of aspirin; Z79.899 Other long term (current) drug therapy
CPT/HCPCS: 36415; 70450; 71045; 72125; 80053; 82550; 83735; 84100; 84484; 85025; 93005

== ENCOUNTER 2021-11-10 19:31 | Inpatient (IN) | payer MEDICARE, OTHER ==
[2021-11-10 20:47] LABS: #Eosinphils 1.7 thou/uL (0.0-0.7); #Lymphocytes 1.4 thou/uL (1.20-3.40); #Monocytes 0.9 thou/uL (0.11-0.59); %Basophils 0.2 % (0.0-1.0); %Eosinophils 12.9 % (0.0-10.0); %Lymphocytes 10.5 % (21.0-51.0); %Monocytes 6.7 % (0.0-10.0); %Neutrophils 69.7 % (42.0-75.0); Hemoglobin 10.6 g/dL (14.0-18.0); Mean Corpuscular HGB CONC 34.4 g/dL (32.0-36.0); Mean Corpuscular Volume 93.1 fL (78.0-98.0); Mean Platelet Volume 6.5 fL (7.4-10.4); Platelet Count 253 thou/uL (130-400); RBC Distribution Width 12.4 % (11.5-14.5); Red Blood Cell (RBC) Count 3.31 mill/uL (4.70-6.10)
[2021-11-10 21:07] LABS: ALT (SGPT) 17 U/L (8-55); AST (SGOT) 10 U/L (5-34); Albumin 4.1 g/dL (3.4-4.8); Alkaline Phosphatase 59 U/L (40-110); Anion Gap 14 mmol/L (10-20); BUN (Urea Nitrogen) 21 mg/dL (8.4-25.7); Bilirubin, Total 0.7 mg/dL (0.2-1.2); Calc. Creatinine Clearance 0 mL/min (70-130); Calcium 9.6 mg/dL (7.8-10.44); Carbon Dioxide 30 mmol/L (23-31); Chloride 98 mmol/L (98-107); Globulin 3.6 g/dL (2.4-3.5); Glucose 204 mg/dL (80-115); Potassium 3.8 mmol/L (3.5-5.1); Protein, Total 7.7 g/dL (5.8-8.1); Sodium 138 mmol/L (136-145)
[2021-11-10] MEDS ORDERED: Ondansetron PF 4 MG/2 ML Vial IVP PRN (23:46)
[2021-11-10] MEDS ORDERED: Calcium Carbonate 500 MG ChewTAB PO PRN (23:46)
[2021-11-10] MEDS ORDERED: Acetaminophen 650 MG Suppository PR PRN (23:46)
[2021-11-10] MEDS ORDERED: Ondansetron ODT 4 MG TAB PO PRN (23:46)
[2021-11-10] MEDS ORDERED: Dextrose 5% in Water 1,000 ML IV PRN (23:51)
[2021-11-10] MEDS ORDERED: Dextrose 50% Abboject 50 ML SYRINGE SLOW IVP PRN (23:51)
[2021-11-10] MEDS ORDERED: HumaLOG 300 UNITS/3 ML VIAL SC PRN (23:51)
[2021-11-11] MEDS ORDERED: Nitroglycerin 0.4 MG TAB (25 Tab Bottle) SL PRN (00:28)
[2021-11-11 01:51] VITALS: BMI 26.4
[2021-11-11 06:29] LABS: #Basophils 0.1 thou/uL (0.0-0.2); #Eosinphils 1.6 thou/uL (0.0-0.7); #Lymphocytes 1.9 thou/uL (1.20-3.40); #Monocytes 0.9 thou/uL (0.11-0.59); #Neutrophils 5.8 thou/uL (1.40-6.50); %Basophils 0.6 % (0.0-1.0); %Eosinophils 15.5 % (0.0-10.0); %Lymphocytes 18.7 % (21.0-51.0); %Monocytes 8.6 % (0.0-10.0); %Neutrophils 56.6 % (42.0-75.0); Hemoglobin 9.9 g/dL (14.0-18.0); Mean Corpuscular Volume 94.3 fL (78.0-98.0); Mean Platelet Volume 6.7 fL (7.4-10.4); Platelet Count 253 thou/uL (130-400); RBC Distribution Width 12.5 % (11.5-14.5); White Blood Cell (WBC) Count 10.2 thou/uL (4.8-10.8)
[2021-11-11 06:45] LABS: Anion Gap 12 mmol/L (10-20); BUN (Urea Nitrogen) 27 mg/dL (8.4-25.7); Calc. Creatinine Clearance 12 mL/min (70-130); Calcium 9.4 mg/dL (7.8-10.44); Carbon Dioxide 32 mmol/L (23-31); Cardiac Risk 3.5 (Less than 4.5); Chloride 100 mmol/L (98-107); Cholesterol 118 mg/dl (< 200 Desired); Glucose 148 mg/dL (80-115); HDL Cholesterol 34 mg/dL (>60 Neg Risk); LDL Cholesterol, Calculated 42 mg/dL; Potassium 4.1 mmol/L (3.5-5.1); Sodium 140 mmol/L (136-145); Triglycerides 211 mg/dL (Less than 150)
[2021-11-11] MEDS: Carvedilol 6.25 MG TAB PO SCH ×2 (08:39→20:49)
[2021-11-11] MEDS: Losartan 25 MG TAB PO SCH (08:39)
[2021-11-11] MEDS: Aspirin 81 mg Enteric Coated Tablet PO SCH (08:39)
[2021-11-11] MEDS: Heparin 5,000 UNITS/ML VIAL SC SCH ×3 (08:39→20:48)
[2021-11-11] MEDS ORDERED: EPOETIN ALFA-EPBX (ESRD) 4,000 UNIT/ML VIAL SC SCH (09:00)
[2021-11-11] MEDS ORDERED: Enoxaparin Sodium 30 MG/0.3 ML SYRINGE SC SCH (09:00)
[2021-11-11] MEDS ORDERED: NIFEdipine XL 30 MG TAB PO SCH (09:00)
[2021-11-11 12:27] LABS: SARS-CoV-2 PCR by NAA Not Detected (NotDetected)
[2021-11-11] MEDS: Acetaminophen 325 MG TAB PO PRN (12:34)
[2021-11-11] MEDS: HumaLOG 300 UNITS/3 ML VIAL SC PRN (12:35)
[2021-11-11] MEDS: Atorvastatin Calcium 40 MG TAB PO SCH (20:49)
[2021-11-12 06:03] LABS: #Basophils 0.1 thou/uL (0.0-0.2); #Eosinphils 2.2 thou/uL (0.0-0.7); #Lymphocytes 2.7 thou/uL (1.20-3.40); #Monocytes 0.9 thou/uL (0.11-0.59); #Neutrophils 5.3 thou/uL (1.40-6.50); %Basophils 0.5 % (0.0-1.0); %Eosinophils 19.8 % (0.0-10.0); %Monocytes 8.3 % (0.0-10.0); %Neutrophils 47.5 % (42.0-75.0); Hemoglobin 9.9 g/dL (14.0-18.0); Mean Corpuscular HGB CONC 34.1 g/dL (32.0-36.0); Mean Corpuscular Hemoglobin 32.2 pg (27.0-31.0); Mean Corpuscular Volume 94.3 fL (78.0-98.0); Mean Platelet Volume 6.8 fL (7.4-10.4); Platelet Count 240 thou/uL (130-400); RBC Distribution Width 12.4 % (11.5-14.5); Red Blood Cell (RBC) Count 3.09 mill/uL (4.70-6.10); White Blood Cell (WBC) Count 11.1 thou/uL (4.8-10.8)
[2021-11-12 06:26] LABS: Anion Gap 14 mmol/L (10-20); BUN (Urea Nitrogen) 40 mg/dL (8.4-25.7); Calc. Creatinine Clearance 9 mL/min (70-130); Calcium 9.2 mg/dL (7.8-10.44); Carbon Dioxide 28 mmol/L (23-31); Chloride 98 mmol/L (98-107); Glucose 136 mg/dL (80-115); Potassium 4.4 mmol/L (3.5-5.1); Sodium 136 mmol/L (136-145)
[2021-11-12] MEDS: Heparin 5,000 UNITS/ML VIAL SC SCH ×3 (09:12→20:15)
[2021-11-12] MEDS: Losartan 25 MG TAB PO SCH (09:13)
[2021-11-12] MEDS: Acetaminophen 325 MG TAB PO PRN (09:13)
[2021-11-12] MEDS: Aspirin 81 mg Enteric Coated Tablet PO SCH (09:14)
[2021-11-12] MEDS: NIFEdipine XL 60 MG TAB PO SCH (09:14)
[2021-11-12] MEDS: Carvedilol 6.25 MG TAB PO SCH ×2 (09:23→20:15)
[2021-11-12 09:44] LABS: HBSAB Concentration Less than 8.00 mIU/mL; Hep B Surf AB Non-Reactive (NonReactive)
[2021-11-12 10:01] LABS: HBSAg Index 4.56 S/CO (0-0.99)
[2021-11-12 10:03] LABS: Hep B Surf Ag Reflx Confirmation S/CO (NonReactive)
[2021-11-12] MEDS: HumaLOG 300 UNITS/3 ML VIAL SC PRN (11:32)
[2021-11-12] MEDS: Sucroferric Oxyhydroxide [Velphoro] 500 MG Tab.Chew PO SCH ×4 (14:59→18:25)
[2021-11-12] MEDS: Atorvastatin Calcium 40 MG TAB PO SCH (20:15)
[2021-11-12] MEDS ORDERED: Melatonin 3 MG TAB PO PRN (23:55)
[2021-11-13 05:49] LABS: #Basophils 0.1 thou/uL (0.0-0.2); #Eosinphils 2.3 thou/uL (0.0-0.7); #Lymphocytes 2.5 thou/uL (1.20-3.40); #Monocytes 1.1 thou/uL (0.11-0.59); #Neutrophils 6.4 thou/uL (1.40-6.50); %Basophils 0.5 % (0.0-1.0); %Eosinophils 18.4 % (0.0-10.0); %Lymphocytes 20.2 % (21.0-51.0); %Monocytes 8.8 % (0.0-10.0); %Neutrophils 52.1 % (42.0-75.0); Hemoglobin 10.4 g/dL (14.0-18.0); Mean Corpuscular HGB CONC 33.7 g/dL (32.0-36.0); Mean Corpuscular Hemoglobin 31.8 pg (27.0-31.0); Mean Corpuscular Volume 94.3 fL (78.0-98.0); Mean Platelet Volume 6.9 fL (7.4-10.4); Platelet Count 263 thou/uL (130-400); RBC Distribution Width 12.4 % (11.5-14.5); Red Blood Cell (RBC) Count 3.26 mill/uL (4.70-6.10); White Blood Cell (WBC) Count 12.4 thou/uL (4.8-10.8)
[2021-11-13 06:11] LABS: Anion Gap 14 mmol/L (10-20); BUN (Urea Nitrogen) 21 mg/dL (8.4-25.7); Calc. Creatinine Clearance 13 mL/min (70-130); Calcium 9.1 mg/dL (7.8-10.44); Carbon Dioxide 30 mmol/L (23-31); Chloride 96 mmol/L (98-107); Glucose 107 mg/dL (80-115); Sodium 136 mmol/L (136-145)
[2021-11-13] MEDS: Acetaminophen 325 MG TAB PO PRN (06:15)
[2021-11-13] MEDS: NIFEdipine XL 60 MG TAB PO SCH ×2 (08:31→09:22)
[2021-11-13] MEDS: Heparin 5,000 UNITS/ML VIAL SC SCH ×3 (08:32→20:31)
[2021-11-13] MEDS: Aspirin 81 mg Enteric Coated Tablet PO SCH (08:32)
[2021-11-13] MEDS: Losartan 25 MG TAB PO SCH (08:32)
[2021-11-13] MEDS: Carvedilol 6.25 MG TAB PO SCH ×3 (08:45→20:31)
[2021-11-13] MEDS: Sucroferric Oxyhydroxide [Velphoro] 500 MG Tab.Chew PO SCH ×3 (08:48→15:56)
[2021-11-13] MEDS: HumaLOG 300 UNITS/3 ML VIAL SC PRN ×2 (11:30→17:38)
[2021-11-13 16:13] LABS: Hep B Surface AG-Rflx Sendout Confirm. indicated (Negative)
[2021-11-13] MEDS: Atorvastatin Calcium 40 MG TAB PO SCH (20:31)
[2021-11-14 05:16] LABS: #Basophils 0.1 thou/uL (0.0-0.2); #Eosinphils 2.3 thou/uL (0.0-0.7); #Neutrophils 5.6 thou/uL (1.40-6.50); %Basophils 0.4 % (0.0-1.0); %Eosinophils 19.2 % (0.0-10.0); %Monocytes 8.3 % (0.0-10.0); %Neutrophils 47.1 % (42.0-75.0); Hemoglobin 11.1 g/dL (14.0-18.0); Mean Corpuscular HGB CONC 34.8 g/dL (32.0-36.0); Mean Corpuscular Hemoglobin 33.2 pg (27.0-31.0); Mean Corpuscular Volume 95.2 fL (78.0-98.0); Mean Platelet Volume 7.1 fL (7.4-10.4); Platelet Count 275 thou/uL (130-400); RBC Distribution Width 12.7 % (11.5-14.5); Red Blood Cell (RBC) Count 3.35 mill/uL (4.70-6.10); White Blood Cell (WBC) Count 11.9 thou/uL (4.8-10.8)
[2021-11-14 05:43] LABS: Anion Gap 14 mmol/L (10-20); BUN (Urea Nitrogen) 31 mg/dL (8.4-25.7); Calc. Creatinine Clearance 10 mL/min (70-130); Calcium 9.3 mg/dL (7.8-10.44); Carbon Dioxide 30 mmol/L (23-31); Chloride 98 mmol/L (98-107); Glucose 110 mg/dL (80-115); Potassium 4.7 mmol/L (3.5-5.1); Sodium 137 mmol/L (136-145)
[2021-11-14] MEDS: Aspirin 81 mg Enteric Coated Tablet PO SCH (08:59)
[2021-11-14] MEDS: Losartan 25 MG TAB PO SCH (08:59)
[2021-11-14] MEDS: NIFEdipine XL 60 MG TAB PO SCH (08:59)
[2021-11-14] MEDS: Heparin 5,000 UNITS/ML VIAL SC SCH ×2 (09:00→16:34)
[2021-11-14] MEDS: Sucroferric Oxyhydroxide [Velphoro] 500 MG Tab.Chew PO SCH ×3 (09:00→16:34)
[2021-11-14] MEDS: Carvedilol 6.25 MG TAB PO SCH (09:00)
[2021-11-14] MEDS: Acetaminophen 325 MG TAB PO PRN (09:00)
[2021-11-14] MEDS: HumaLOG 300 UNITS/3 ML VIAL SC PRN ×2 (11:42→17:41)
[2021-11-14 14:59] LABS: HBCM Index 0.07 S/CO (0-0.79); Hepatitis B Core IgM Abs Non-Reactive (NonReactive)
[2021-11-14 15:57] VITALS: TEMP 98.6
[2021-11-14 18:44] VITALS: BP 155/94
[2021-11-16 20:12] LABS: HBV as IU/mL HBV DNA not detected IU/mL (.)
== END 2021-11-14 19:30 | disposition home health service (06) | DRG 64 ==
LOC: ERS 19:31 → NEURO 21:44 → OBSVTOIN 11-11 14:24
PROVIDERS: ADMIT Student in an Organized Health Care Education/Training Program; ATTEND Student in an Organized Health Care Education/Training Program
PROC: 5A1D70Z Performance of Urinary Filtration, Intermittent, Less than 6 Hours Per Day (ICD-10-PCS; principal; 2021-11-12)
DX: I63.9 Cerebral infarction, unspecified (principal); N18.6 End stage renal disease; I13.2 Hypertensive heart and chronic kidney disease with heart failure and with stage 5 chronic kidney disease, or end stage renal disease; G81.94 Hemiplegia, unspecified affecting left nondominant side; I50.32 Chronic diastolic (congestive) heart failure; Z66 Do not resuscitate; Z20.822 Contact with and (suspected) exposure to COVID-19; D63.1 Anemia in chronic kidney disease; R07.89 Other chest pain; F32.A Depression, unspecified; R29.6 Repeated falls; R47.1 Dysarthria and anarthria; E11.22 Type 2 diabetes mellitus with diabetic chronic kidney disease; E78.5 Hyperlipidemia, unspecified; Z99.2 Dependence on renal dialysis; Z79.82 Long term (current) use of aspirin; Z79.4 Long term (current) use of insulin; Z79.899 Other long term (current) drug therapy; Z90.49 Acquired absence of other specified parts of digestive tract; Z87.891 Personal history of nicotine dependence
CPT/HCPCS: 36415; 36416; 70450; 70551; 71045; 72125; 80048; 80053; 80061; 82550; 83036; 83735; 84100; 84443; 84484; 85025; 86705; 86706; 87340; 87517; 93005; 93306; 93880; 96372; G0378; J1644; J1815; Q5105; U0003; U0005

== ENCOUNTER 2022-03-07 16:27 | Observation (INO) | payer OTHER ==
[2022-03-07 17:20] LABS: #Eosinphils 2.9 thou/uL (0.0-0.7); #Lymphocytes 2.3 thou/uL (1.20-3.40); #Monocytes 0.7 thou/uL (0.11-0.59); #Neutrophils 5.9 thou/uL (1.40-6.50); %Basophils 0.3 % (0.0-1.0); %Eosinophils 24.5 % (0.0-10.0); %Lymphocytes 19.8 % (21.0-51.0); %Monocytes 5.5 % (0.0-10.0); Hemoglobin 11.6 g/dL (14.0-18.0); Mean Corpuscular HGB CONC 33.4 g/dL (32.0-36.0); Mean Corpuscular Hemoglobin 31.3 pg (27.0-31.0); Mean Corpuscular Volume 93.7 fL (78.0-98.0); Mean Platelet Volume 7.1 fL (7.4-10.4); Platelet Count 227 thou/uL (130-400); Red Blood Cell (RBC) Count 3.72 mill/uL (4.70-6.10); White Blood Cell (WBC) Count 11.8 thou/uL (4.8-10.8)
[2022-03-07 17:40] LABS: ALT (SGPT) 12 U/L (8-55); AST (SGOT) 9 U/L (5-34); Albumin 3.9 g/dL (3.4-4.8); Alkaline Phosphatase 82 U/L (40-110); Anion Gap 16 mmol/L (10-20); BUN (Urea Nitrogen) 42 mg/dL (8.4-25.7); Bilirubin, Total 0.6 mg/dL (0.2-1.2); Calc. Creatinine Clearance 0 mL/min (70-130); Calcium 8.9 mg/dL (7.8-10.44); Carbon Dioxide 24 mmol/L (23-31); Chloride 100 mmol/L (98-107); Globulin 3.5 g/dL (2.4-3.5); Glucose 147 mg/dL (80-115); Magnesium 2.2 mg/dL (1.6-2.6); Potassium 4.9 mmol/L (3.5-5.1); Protein, Total 7.4 g/dL (5.8-8.1); Sodium 135 mmol/L (136-145)
[2022-03-07 17:41] LABS: Phosphorus 2.9 mg/dL (2.3-4.7)
[2022-03-07] MEDS ORDERED: hydrALAZINE 20 MG/ML VIAL ONE (18:19)
[2022-03-07] MEDS ORDERED: Acetaminophen 325 MG TAB PO PRN (20:46)
[2022-03-07] MEDS ORDERED: Dextrose 50% Abboject 50 ML SYRINGE SLOW IVP PRN (20:51)
[2022-03-07] MEDS ORDERED: HumaLOG 300 UNITS/3 ML VIAL SC PRN (20:51)
[2022-03-07] MEDS ORDERED: Dextrose 5% in Water 1,000 ML IV PRN (20:51)
[2022-03-07 21:42] LABS: Troponin I 0.019 ng/mL (< 0.028)
[2022-03-07 22:47] VITALS: BMI 26.6
[2022-03-07] MEDS: Heparin 5,000 UNITS/ML VIAL SC SCH (23:10)
[2022-03-07] MEDS: HumaLOG 300 UNITS/3 ML VIAL SC PRN (23:16)
[2022-03-08 00:48] LABS: Troponin I 0.018 ng/mL (< 0.028)
[2022-03-08 06:09] LABS: Anion Gap 14 mmol/L (10-20); BUN (Urea Nitrogen) 43 mg/dL (8.4-25.7); Calc. Creatinine Clearance 8 mL/min (70-130); Calcium 8.9 mg/dL (7.8-10.44); Carbon Dioxide 23 mmol/L (23-31); Chloride 103 mmol/L (98-107); Glucose 234 mg/dL (80-115); Potassium 4.1 mmol/L (3.5-5.1); Sodium 136 mmol/L (136-145)
[2022-03-08] MEDS ORDERED: Sucroferric Oxyhydroxide [Velphoro] 500 MG Tab.Chew PO SCH (08:00)
[2022-03-08] MEDS ORDERED: cloNIDine 0.1 MG TAB PO SCH (09:00)
[2022-03-08] MEDS ORDERED: Ondansetron PF 4 MG/2 ML Vial IVP PRN (09:10)
[2022-03-08] MEDS ORDERED: Amlodipine 5 MG TAB PO SCH (09:12)
[2022-03-08 09:45] LABS: Hemoglobin A1c 8.3 % (4.0-6.0)
[2022-03-08 12:32] LABS: SARS-CoV-2 PCR by NAA Not Detected (NotDetected)
[2022-03-08] MEDS ORDERED: NIFEdipine XL 60 MG TAB PO SCH ×2 (13:15→21:00)
[2022-03-08] MEDS: Aspirin 81 mg Enteric Coated Tablet PO SCH (13:55)
[2022-03-08] MEDS: Carvedilol 6.25 MG TAB PO SCH ×2 (13:55→21:05)
[2022-03-08] MEDS: Heparin 5,000 UNITS/ML VIAL SC SCH ×2 (13:55→21:05)
[2022-03-08] MEDS: Losartan 25 MG TAB PO SCH (14:00)
[2022-03-08] MEDS: HumaLOG 300 UNITS/3 ML VIAL SC PRN (21:06)
[2022-03-09] MEDS ORDERED: NIFEdipine XL 60 MG TAB PO SCH (09:00)
[2022-03-09] MEDS: Losartan 25 MG TAB PO SCH (10:24)
[2022-03-09] MEDS: Carvedilol 6.25 MG TAB PO SCH (10:25)
[2022-03-09 13:44] VITALS: BP 99/68; TEMP 98.1
[2022-03-09] MEDS: Heparin 5,000 UNITS/ML VIAL SC SCH (13:48)
[2022-03-09] MEDS: Aspirin 81 mg Enteric Coated Tablet PO SCH (13:48)
[2022-03-09] MEDS ORDERED: Insulin Glargine 30 UNITS/0.3 ML VIAL SC SCH (21:00)
== END 2022-03-09 16:30 | disposition home or self-care (01) ==
LOC: ERS 16:27 → 2SW 19:48
PROVIDERS: ADMIT Emergency Medicine; ATTEND Emergency Medicine
DX: T82.510A Breakdown (mechanical) of surgically created arteriovenous fistula, initial encounter (principal); I16.0 Hypertensive urgency; I12.0 Hypertensive chronic kidney disease with stage 5 chronic kidney disease or end stage renal disease; E11.22 Type 2 diabetes mellitus with diabetic chronic kidney disease; N18.6 End stage renal disease; D63.1 Anemia in chronic kidney disease; R07.89 Other chest pain; D72.10 Eosinophilia, unspecified; H53.8 Other visual disturbances; Z86.73 Personal history of transient ischemic attack (TIA), and cerebral infarction without residual deficits; Z79.4 Long term (current) use of insulin; Z79.82 Long term (current) use of aspirin; Z79.899 Other long term (current) drug therapy; Z20.822 Contact with and (suspected) exposure to COVID-19; Y81.3 Surgical instruments, materials and general- and plastic-surgery devices (including sutures) associated with adverse incidents
CPT/HCPCS: 80048; 80053; 82962 ×3; 83036; 83735; 84100; 84484 ×2; 85025; 93005; 93923; 96372 ×3; 96374; 99285; G0378 ×4; U0003; U0005; 36415; 36416; 85060; 90935; G0257; J0360; J1644; J1815

== ENCOUNTER 2022-05-13 19:31 | Emergency (ER) | payer OTHER ==
[~2022-05-13 19:31] MED LIST: Iopamidol-370 76% 500 ML 1 ML ONE
[2022-05-13] MEDS ORDERED: HYDROcodone/Acetaminophen 10/325 mg Tablet ONE (20:47)
[2022-05-13 23:48] LABS: Anion Gap 14 mmol/L (10-20); BUN (Urea Nitrogen) 8 mg/dL (8.4-25.7); Calc. Creatinine Clearance 0 mL/min (70-130); Calcium 9.3 mg/dL (7.8-10.44); Carbon Dioxide 32 mmol/L (23-31); Chloride 94 mmol/L (98-107); Estimated GFR 21; Glucose 184 mg/dL (80-115); Potassium 3.7 mmol/L (3.5-5.1); Sodium 136 mmol/L (136-145)
== END 2022-05-14 00:45 | disposition home or self-care (01) ==
LOC: ERS 19:31
DX: M54.50 Low back pain, unspecified (principal); I12.0 Hypertensive chronic kidney disease with stage 5 chronic kidney disease or end stage renal disease; E11.22 Type 2 diabetes mellitus with diabetic chronic kidney disease; N18.6 End stage renal disease; E78.00 Pure hypercholesterolemia, unspecified; W19.XXXA Unspecified fall, initial encounter; Z99.2 Dependence on renal dialysis; Z79.82 Long term (current) use of aspirin; Z79.899 Other long term (current) drug therapy
CPT/HCPCS: 36415; 71275; 74174; 80048; Q9967

== ENCOUNTER 2023-03-04 12:59 | Observation (INO) | payer OTHER ==
[2023-03-04 15:20] LABS: #Eosinphils 0.2 thou/uL (0.0-0.7); #Monocytes 0.9 thou/uL (0.11-0.59); #Neutrophils 6.5 thou/uL (1.40-6.50); %Basophils 0.3 % (0.0-1.0); %Eosinophils 1.6 % (0.0-10.0); %Lymphocytes 20.4 % (21.0-51.0); %Monocytes 9.7 % (0.0-10.0); %Neutrophils 67.8 % (42.0-75.0); Hemoglobin 13.7 g/dL (14.0-18.0); Mean Corpuscular HGB CONC 32.2 g/dL (32.0-36.0); Mean Corpuscular Hemoglobin 29.3 pg (27.0-31.0); Mean Corpuscular Volume 90.8 fl (78.0-98.0); Mean Platelet Volume 10.2 fL (7.4-10.4); Platelet Count 197 10x3/uL (130-400); RBC Distribution Width 14.4 % (11.5-14.5); Red Blood Cell (RBC) Count 4.68 mill/uL (4.70-6.10); White Blood Cell (WBC) Count 9.6 10x3/uL (4.8-10.8)
[2023-03-04 15:43] LABS: ALT (SGPT) 16 U/L (8-55); AST (SGOT) 16 U/L (5-34); Albumin 4.7 g/dL (3.4-4.8); Alkaline Phosphatase 62 U/L (40-110); Anion Gap 22 mmol/L (10-20); BUN (Urea Nitrogen) 55 mg/dL (8.4-25.7); Bilirubin, Total 0.6 mg/dL (0.2-1.2); Calc. Creatinine Clearance 0 mL/min (70-130); Calcium 9.9 mg/dL (7.8-10.44); Carbon Dioxide 28 mmol/L (23-31); Chloride 89 mmol/L (98-107); Estimated GFR 5; Glucose 110 mg/dL (83-110); Lipase 33 U/L (8-78); Potassium 3.8 mmol/L (3.5-5.1); Protein, Total 8.7 g/dL (5.8-8.1); Sodium 135 mmol/L (136-145)
[2023-03-04] MEDS ORDERED: Ondansetron PF 4 MG/2 ML Vial ONE (16:13)
[2023-03-04] MEDS ORDERED: Dicyclomine 20 MG/2 ML VIAL ONE (16:13)
[2023-03-04] MEDS ORDERED: Acetaminophen 325 MG TAB PO PRN (21:12)
[2023-03-04] MEDS ORDERED: Ondansetron PF 4 MG/2 ML Vial IVP PRN (21:12)
[2023-03-04] MEDS ORDERED: Dextrose 50% Abboject 50 ML SYRINGE SLOW IVP PRN (21:14)
[2023-03-04] MEDS ORDERED: Glucagon 1 MG/ML KIT IM PRN (21:14)
[2023-03-04] MEDS ORDERED: HumaLOG 300 UNITS/3 ML VIAL SC PRN ×2 (21:14)
[2023-03-04] MEDS ORDERED: Dextrose 5% in Water 1,000 ML IV PRN (21:14)
[2023-03-04 21:34] VITALS: BMI 23.6
[2023-03-04 22:28] LABS: SARS-CoV-2 NAA Rapid Test Not Detected (NotDetected)
[2023-03-05 00:58] LABS: HBSAg Index 0.22 S/CO (0-0.99); Hep B Core Total Ab Non-Reactive (NonReactive); Hep B Core Total Index 0.13 S/CO (0-0.79); Hep B Surf Ag Non-Reactive S/CO (NonReactive); Hep C IgG Ab Non-Reactive S/CO (NonReactive); Hep C Index 0.34 S/CO (0-0.79)
[2023-03-05 01:01] LABS: HBSAB Concentration 272.25 mIU/mL; Hep B Surf AB Reactive (NonReactive)
[2023-03-05 05:00] LABS: #Eosinphils 0.6 thou/uL (0.0-0.7); #Monocytes 0.8 thou/uL (0.11-0.59); #Neutrophils 4.4 thou/uL (1.40-6.50); %Basophils 0.4 % (0.0-1.0); %Eosinophils 7.7 % (0.0-10.0); %Lymphocytes 23.3 % (21.0-51.0); %Monocytes 10.6 % (0.0-10.0); %Neutrophils 57.7 % (42.0-75.0); Hemoglobin 12.1 g/dL (14.0-18.0); Mean Corpuscular HGB CONC 32.4 g/dL (32.0-36.0); Mean Corpuscular Hemoglobin 29.2 pg (27.0-31.0); Mean Corpuscular Volume 90.1 fl (78.0-98.0); Mean Platelet Volume 9.8 fL (7.4-10.4); Platelet Count 178 10x3/uL (130-400); RBC Distribution Width 14.1 % (11.5-14.5); Red Blood Cell (RBC) Count 4.14 mill/uL (4.70-6.10); White Blood Cell (WBC) Count 7.7 10x3/uL (4.8-10.8)
[2023-03-05 05:23] LABS: Anion Gap 21 mmol/L (10-20); Calc. Creatinine Clearance 6 mL/min (70-130); Calcium 8.7 mg/dL (7.8-10.44); Carbon Dioxide 23 mmol/L (23-31); Chloride 93 mmol/L (98-107); Estimated GFR 5; Glucose 112 mg/dL (83-110); Potassium 3.7 mmol/L (3.5-5.1); Sodium 133 mmol/L (136-145)
[2023-03-05 06:01] LABS: BUN (Urea Nitrogen) 64 mg/dL (8.4-25.7)
[2023-03-05] MEDS ORDERED: NIFEdipine XL 60 MG TAB PO SCH (09:00)
[2023-03-05] MEDS ORDERED: Sertraline 100 MG TAB PO SCH (09:00)
[2023-03-05] MEDS ORDERED: Carvedilol 6.25 MG TAB PO SCH (09:00)
[2023-03-05] MEDS ORDERED: Minoxidil 2.5 MG TAB PO SCH ×2 (09:00→21:00)
[2023-03-05] MEDS ORDERED: Aspirin 81 mg Enteric Coated Tablet PO SCH (09:00)
[2023-03-05] MEDS ORDERED: Losartan 25 MG TAB PO SCH (09:00)
[2023-03-05] MEDS ORDERED: Amlodipine 5 MG TAB PO SCH (09:00)
[2023-03-05 14:10] VITALS: BP 156/80; TEMP 97.6
== END 2023-03-05 16:50 | disposition home or self-care (01) ==
LOC: ERS 12:59 → 2SW 19:38
PROVIDERS: ADMIT Internal Medicine; ATTEND Internal Medicine
DX: R11.2 Nausea with vomiting, unspecified (principal); R19.7 Diarrhea, unspecified; E78.5 Hyperlipidemia, unspecified; I12.0 Hypertensive chronic kidney disease with stage 5 chronic kidney disease or end stage renal disease; N18.6 End stage renal disease; F41.9 Anxiety disorder, unspecified; F32.A Depression, unspecified; E11.9 Type 2 diabetes mellitus without complications; Z79.82 Long term (current) use of aspirin; Z79.899 Other long term (current) drug therapy; Z99.2 Dependence on renal dialysis; Z90.49 Acquired absence of other specified parts of digestive tract; Z79.4 Long term (current) use of insulin
CPT/HCPCS: 0240U; 74177; 80048; 80053; 82962 ×2; 83690; 84484; 85025 ×2; 86704; 96372; 96374; 99285; G0378 ×3; 36415; 36416; J2405

== ENCOUNTER 2024-04-23 06:07 | Day surgery (SDC) | payer OTHER, MEDICAID ==
[2024-04-22 11:06] VITALS: BMI 23.3
[2024-04-23] MEDS ORDERED: GLYCOPYRROLATE/PF 0.2 MG/ML VIAL ONE (07:15)
[2024-04-23] MEDS ORDERED: PHENYLEPHRINE-NS 100 MCG/ML 10 ML SYRINGE ONE (07:15)
[2024-04-23] MEDS ORDERED: Lidocaine 1% PF 5 ML VIAL ONE (07:15)
[2024-04-23] MEDS ORDERED: PROPOFOL 20 ML ONE ×2 (07:15→08:14)
[2024-04-23 07:40] LABS: Anion Gap 20 mmol/L (10-20); BUN (Urea Nitrogen) 34 mg/dL (8.4-25.7); Calc. Creatinine Clearance 11 mL/min (70-130); Calcium 9.5 mg/dL (7.8-10.44); Carbon Dioxide 28 mmol/L (23-31); Chloride 96 mmol/L (98-107); Estimated GFR 11; Glucose 80 mg/dL (83-110); Sodium 139 mmol/L (136-145)
== END 2024-04-23 09:10 | disposition home or self-care (01) ==
LOC: SDC 06:07
PROVIDERS: ATTEND Internal Medicine Gastroenterology
PROC: 0DB68ZX Excision of Stomach, Via Natural or Artificial Opening Endoscopic, Diagnostic (ICD-10-PCS; principal; 2024-04-23)
PROC: 0D758ZZ Dilation of Esophagus, Via Natural or Artificial Opening Endoscopic (ICD-10-PCS; 2024-04-23)
DX: K29.50 Unspecified chronic gastritis without bleeding (principal); K29.00 Acute gastritis without bleeding; K26.9 Duodenal ulcer, unspecified as acute or chronic, without hemorrhage or perforation; K63.89 Other specified diseases of intestine; K31.7 Polyp of stomach and duodenum; K31.A12 Gastric intestinal metaplasia without dysplasia, involving the body (corpus); K44.9 Diaphragmatic hernia without obstruction or gangrene; K21.9 Gastro-esophageal reflux disease without esophagitis; R13.10 Dysphagia, unspecified; E11.22 Type 2 diabetes mellitus with diabetic chronic kidney disease; I13.2 Hypertensive heart and chronic kidney disease with heart failure and with stage 5 chronic kidney disease, or end stage renal disease; I50.32 Chronic diastolic (congestive) heart failure; N18.6 End stage renal disease; E78.5 Hyperlipidemia, unspecified; E11.42 Type 2 diabetes mellitus with diabetic polyneuropathy; Z79.82 Long term (current) use of aspirin; Z79.84 Long term (current) use of oral hypoglycemic drugs; Z79.899 Other long term (current) drug therapy; Z90.49 Acquired absence of other specified parts of digestive tract
CPT/HCPCS: 43239; 43248; 80048; 82962; J2704; J3490; 36416; 88305

== ENCOUNTER 2024-04-26 17:57 | Inpatient (IN) | payer OTHER ==
[2024-04-26 18:57] LABS: #Basophils 0.03 10x3/uL (0.0-0.2); %Basophils 0.2 % (0.0-1.0); %Lymphocytes 11.8 % (21.0-51.0); %Neutrophils 68.5 % (42.0-75.0); Hematocrit 13.1 % (42.0-52.0); Hemoglobin 4.5 g/dL (14.0-18.0); Mean Corpuscular HGB CONC 34.4 g/dL (32.0-36.0); Mean Corpuscular Volume 90.3 fL (78.0-98.0); Mean Platelet Volume 9.7 fL (7.4-10.4); Platelet Count 190 10x3/uL (130-400); RBC Distribution Width 13.9 % (11.5-14.5); Red Blood Cell (RBC) Count 1.45 mill/uL (4.70-6.10)
[2024-04-26 19:01] LABS: Phosphorus 3.7 mg/dL (2.3-4.7)
[2024-04-26 19:04] LABS: Anion Gap 20 mmol/L (10-20); BUN (Urea Nitrogen) 123 mg/dL (8.4-25.7); Calc. Creatinine Clearance 0 mL/min (70-130); Carbon Dioxide 27 mmol/L (23-31); Chloride 95 mmol/L (98-107); Potassium 4.9 mmol/L (3.5-5.1); Sodium 137 mmol/L (136-145)
[2024-04-26 19:05] LABS: ALT (SGPT) 13 U/L (8-55); AST (SGOT) 11 U/L (5-34); Albumin 3.5 g/dL (3.4-4.8); Alkaline Phosphatase 81 U/L (40-110); Bilirubin, Total 0.4 mg/dL (0.2-1.2); Calcium 9.1 mg/dL (7.8-10.44); Estimated GFR 8; Globulin 3.2 g/dL (2.4-3.5); Glucose 130 mg/dL (83-110); Protein, Total 6.7 g/dL (5.8-8.1)
[2024-04-26 19:09] LABS: Troponin I 0.058 ng/mL (< 0.028)
[2024-04-26] MEDS ORDERED: Pantoprazole 80 MG, Admixture Fee 1 EACH in Sodium Chloride 0.9% 100 ML IVPB SCH (19:30)
[2024-04-26] MEDS ORDERED: Ondansetron PF 4 MG/2 ML Vial IVP PRN (21:00)
[2024-04-26] MEDS ORDERED: Ondansetron ODT 4 MG TAB SL PRN (21:00)
[2024-04-26] MEDS ORDERED: Insulin Lispro 100 UNIT/ML 10 ML VIAL SC PRN (22:23)
[2024-04-26] MEDS ORDERED: Dextrose 50% Abboject 50 ML SYRINGE SLOW IVP PRN (22:23)
[2024-04-26] MEDS ORDERED: Glucagon 1 MG/ML KIT IM PRN (22:23)
[2024-04-26] MEDS ORDERED: Dextrose 5% in Water 1,000 ML IV PRN (22:23)
[2024-04-26 22:51] VITALS: BMI 22.5
[2024-04-27 02:15] LABS: Troponin I 0.043 ng/mL (< 0.028)
[2024-04-27 06:33] LABS: BUN (Urea Nitrogen) 130 mg/dL (8.4-25.7)
[2024-04-27 06:34] LABS: ALT (SGPT) 11 U/L (8-55); AST (SGOT) 10 U/L (5-34); Albumin 3.2 g/dL (3.4-4.8); Alkaline Phosphatase 66 U/L (40-110); Anion Gap 22 mmol/L (10-20); Bilirubin, Total 0.5 mg/dL (0.2-1.2); Calc. Creatinine Clearance 8 mL/min (70-130); Calcium 8.8 mg/dL (7.8-10.44); Carbon Dioxide 25 mmol/L (23-31); Chloride 96 mmol/L (98-107); Estimated GFR 7; Globulin 2.6 g/dL (2.4-3.5); Glucose 109 mg/dL (83-110); Potassium 4.7 mmol/L (3.5-5.1); Protein, Total 5.8 g/dL (5.8-8.1); Sodium 138 mmol/L (136-145)
[2024-04-27 06:47] LABS: #Basophils 0.04 10x3/uL (0.0-0.2); %Basophils 0.4 % (0.0-1.0); %Eosinophils 10.3 % (0.0-10.0); %Lymphocytes 16.7 % (21.0-51.0); %Monocytes 7.8 % (0.0-10.0); Hematocrit 16.1 % (42.0-52.0); Hemoglobin 5.9 g/dL (14.0-18.0); Mean Corpuscular HGB CONC 36.6 g/dL (32.0-36.0); Mean Corpuscular Hemoglobin 31.4 pg (27.0-31.0); Mean Corpuscular Volume 85.6 fL (78.0-98.0); Mean Platelet Volume 10.1 fL (7.4-10.4); Platelet Count 146 10x3/uL (130-400); RBC Distribution Width 14.3 % (11.5-14.5); Red Blood Cell (RBC) Count 1.88 mill/uL (4.70-6.10)
[2024-04-27] MEDS: Pantoprazole 40 MG VIAL IVP SCH (07:44)
[2024-04-27 10:01] LABS: HBSAB Concentration 298.73 mIU/mL; HBsAg Index 0.25 S/CO (0-0.99); Hep B Core Total Ab NONREACTIVE (NonReactive); Hep B Core Total Index 0.11 S/CO (0-0.79); Hep B Surf AB REACTIVE (NonReactive); Hep B Surf Ag NONREACTIVE S/CO (NonReactive); Hep C IgG Ab NONREACTIVE S/CO (NonReactive); Hep C Index 0.51 S/CO (0-0.79)
[2024-04-27 11:12] LABS: Hematocrit 22.6 % (42.0-52.0); Hemoglobin 8.2 g/dL (14.0-18.0); Platelet Count 137 10x3/uL (130-400)
[2024-04-27] MEDS: Sucroferric Oxyhydroxide [Velphoro] 500 MG Tab.Chew PO SCH (12:39)
[2024-04-27 12:53] LABS: Hematocrit 22.9 % (42.0-52.0); Hemoglobin 8.4 g/dL (14.0-18.0); Platelet Count 136 10x3/uL (130-400)
[2024-04-27] MEDS: Lactated Ringer's 500 ML IV SCH (14:26)
[2024-04-27] MEDS: Metoprolol Tartrate 5 MG (5 mL) VIAL ONE (14:59)
[2024-04-27] MEDS: dilTIAZem 25 MG/5 ML VIAL ONE ×2 (15:01→15:23)
[2024-04-27] MEDS: Metoprolol Tartrate 5 MG (5 mL) VIAL IVP SCH (15:05)
[2024-04-27] MEDS: dilTIAZem 25 MG/5 ML VIAL SLOW IVP SCH (15:30)
[2024-04-27 15:35] LABS: Hematocrit 24.5 % (42.0-52.0); Hemoglobin 8.8 g/dL (14.0-18.0)
[2024-04-27 15:56] LABS: Magnesium 1.8 mg/dL (1.6-2.6)
[2024-04-27] MEDS: dilTIAZem 125 MG, Admixture Fee 1 EACH in Sodium Chloride 0.9% 100 ML IVPB SCH (16:32)
[2024-04-27] MEDS: Amiodarone 450 MG in Dextrose 5% in Water 250 ML IVPB SCH (18:23)
[2024-04-27 20:04] LABS: Hematocrit 24.3 % (42.0-52.0); Hemoglobin 8.8 g/dL (14.0-18.0)
[2024-04-27] MEDS: Atorvastatin Calcium 40 MG TAB PO SCH (21:59)
[2024-04-28 07:21] LABS: #Basophils 0.05 10x3/uL (0.0-0.2); %Basophils 0.4 % (0.0-1.0); %Eosinophils 10.6 % (0.0-10.0); %Lymphocytes 6.6 % (21.0-51.0); Hematocrit 23.2 % (42.0-52.0); Hemoglobin 8.2 g/dL (14.0-18.0); Mean Corpuscular HGB CONC 35.3 g/dL (32.0-36.0); Mean Corpuscular Hemoglobin 29.5 pg (27.0-31.0); Mean Corpuscular Volume 83.5 fL (78.0-98.0); Platelet Count 159 10x3/uL (130-400); Red Blood Cell (RBC) Count 2.78 mill/uL (4.70-6.10)
[2024-04-28 07:43] LABS: ALT (SGPT) 12 U/L (8-55); AST (SGOT) 12 U/L (5-34); Albumin 3.2 g/dL (3.4-4.8); Alkaline Phosphatase 65 U/L (40-110); Anion Gap 13 mmol/L (10-20); BUN (Urea Nitrogen) 53 mg/dL (8.4-25.7); Bilirubin, Total 0.7 mg/dL (0.2-1.2); Calc. Creatinine Clearance 12 mL/min (70-130); Calcium 8.9 mg/dL (7.8-10.44); Carbon Dioxide 29 mmol/L (23-31); Chloride 98 mmol/L (98-107); Estimated GFR 12; Globulin 2.8 g/dL (2.4-3.5); Glucose 114 mg/dL (83-110); Potassium 4.1 mmol/L (3.5-5.1); Sodium 136 mmol/L (136-145)
[2024-04-28] MEDS ORDERED: Lidocaine 1% PF 5 ML VIAL ONE (07:50)
[2024-04-28] MEDS ORDERED: fentaNYL 50 mcg/mL 1 mL Vial ONE (07:50)
[2024-04-28] MEDS ORDERED: PROPOFOL 20 ML ONE (07:50)
[2024-04-28] MEDS ORDERED: SUCCINYLCHOLINE/SOD CL,ISO/PF 200 MG/10 ML SYRINGE FS ONE (07:50)
[2024-04-28] MEDS ORDERED: Dexamethasone 20 MG/5 ML VIAL ONE (07:50)
[2024-04-28] MEDS ORDERED: Ondansetron PF 4 MG/2 ML Vial ONE (07:50)
[2024-04-28] MEDS: Ondansetron ODT 4 MG TAB PO SCH (08:00)
[2024-04-28] MEDS: Sertraline 100 MG TAB PO SCH (08:00)
[2024-04-28] MEDS ORDERED: EPINEPHrine 1 MG/10 ML Abboject SYRINGE ONE (08:38)
[2024-04-28] MEDS ORDERED: cloNIDine 0.1 MG TAB PO PRN (10:43)
[2024-04-28] MEDS: EPOETIN ALFA-EPBX 10,000 UNITS/ML VIAL SC SCH (12:59)
[2024-04-29 05:25] LABS: #Basophils 0.03 10x3/uL (0.0-0.2); %Basophils 0.2 % (0.0-1.0); %Eosinophils 12.2 % (0.0-10.0); %Lymphocytes 8.5 % (21.0-51.0); %Monocytes 8.8 % (0.0-10.0); Hematocrit 21.7 % (42.0-52.0); Hemoglobin 7.6 g/dL (14.0-18.0); Mean Corpuscular Hemoglobin 30.4 pg (27.0-31.0); Mean Corpuscular Volume 86.8 fL (78.0-98.0); Mean Platelet Volume 10.1 fL (7.4-10.4); Platelet Count 170 10x3/uL (130-400); RBC Distribution Width 13.7 % (11.5-14.5)
[2024-04-29 06:07] LABS: ALT (SGPT) 12 U/L (8-55); AST (SGOT) 11 U/L (5-34); Alkaline Phosphatase 73 U/L (40-110); Anion Gap 16 mmol/L (10-20); BUN (Urea Nitrogen) 66 mg/dL (8.4-25.7); Bilirubin, Total 0.7 mg/dL (0.2-1.2); Calc. Creatinine Clearance 9 mL/min (70-130); Calcium 8.4 mg/dL (7.8-10.44); Carbon Dioxide 28 mmol/L (23-31); Chloride 97 mmol/L (98-107); Estimated GFR 9; Globulin 2.7 g/dL (2.4-3.5); Glucose 114 mg/dL (83-110); Potassium 4.2 mmol/L (3.5-5.1); Protein, Total 5.7 g/dL (5.8-8.1); Sodium 137 mmol/L (136-145)
[2024-04-29] MEDS ORDERED: NIFEdipine XL 60 MG ER.TAB PO SCH ×2 (09:00)
[2024-04-29] MEDS: NIFEdipine XL 90 MG ER.TAB PO SCH (09:12)
[2024-04-29] MEDS: Losartan 25 MG TAB PO SCH (09:12)
[2024-04-29] MEDS: Acetaminophen 325 MG TAB PO SCH (09:12)
[2024-04-29] MEDS: Minoxidil 10 MG TAB PO SCH (09:16)
[2024-04-29 19:19] LABS: Hematocrit 29.5 % (42.0-52.0); Hemoglobin 10.4 g/dL (14.0-18.0); Platelet Count 208 10x3/uL (130-400)
[2024-04-29 20:04] VITALS: TEMP 97.3
== END 2024-04-29 22:50 | disposition home or self-care (01) | DRG 919 ==
LOC: ERS 17:57 → IMCU/EMU 20:46
PROVIDERS: ADMIT Family Medicine; ATTEND Family Medicine
PROC: 30233N1 Transfusion of Nonautologous Red Blood Cells into Peripheral Vein, Percutaneous Approach (ICD-10-PCS; 2024-04-26)
PROC: 0W3P8ZZ Control Bleeding in Gastrointestinal Tract, Via Natural or Artificial Opening Endoscopic (ICD-10-PCS; principal; 2024-04-28)
PROC: 0D568ZZ Destruction of Stomach, Via Natural or Artificial Opening Endoscopic (ICD-10-PCS; 2024-04-28)
DX: K91.840 Postprocedural hemorrhage of a digestive system organ or structure following a digestive system procedure (principal); N18.6 End stage renal disease; K92.2 Gastrointestinal hemorrhage, unspecified; D62 Acute posthemorrhagic anemia; I13.2 Hypertensive heart and chronic kidney disease with heart failure and with stage 5 chronic kidney disease, or end stage renal disease; I50.32 Chronic diastolic (congestive) heart failure; E11.22 Type 2 diabetes mellitus with diabetic chronic kidney disease; F32.9 Major depressive disorder, single episode, unspecified; F32.A Depression, unspecified; E78.5 Hyperlipidemia, unspecified; I48.91 Unspecified atrial fibrillation; K44.9 Diaphragmatic hernia without obstruction or gangrene; Z86.73 Personal history of transient ischemic attack (TIA), and cerebral infarction without residual deficits; Z91.158 Patient's noncompliance with renal dialysis for other reason; Z79.82 Long term (current) use of aspirin; Z79.899 Other long term (current) drug therapy; Z90.49 Acquired absence of other specified parts of digestive tract; Z99.2 Dependence on renal dialysis; Y83.8 Other surgical procedures as the cause of abnormal reaction of the patient, or of later complication, without mention of misadventure at the time of the procedure
CPT/HCPCS: 36415; 36416; 36430; 43753; 71045; 74018; 74176; 80053; 82274; 83735; 83880; 84100; 84443; 84484; 85025; 86704; 86706; 86803; 86850; 86900; 86901; 87340; 90935; 93005; 93010; 93306; 96374; C1889; C9113; G0257; J0171; J0282; J1100; J2405; J2704; J3010; J3490; J7070; J7120; P9016; Q0162; Q5106

== ENCOUNTER 2025-08-30 14:21 | Emergency (ER) | payer OTHER ==
[2025-08-30] MEDS ORDERED: Ondansetron PF 4 MG/2 ML Vial ONE (14:34)
[2025-08-30 16:07] LABS: #Basophils 0.06 10x3/uL (0.0-0.2); #Eosinophils 2.66 10x3/uL (0.0-0.7); #Monocytes 0.82 10x3/uL (0.11-0.59); #Neutrophils 6.86 10x3/uL (1.40-6.50); %Basophils 0.5 % (0.0-1.0); %Eosinophils 22.6 % (0.0-10.0); %Lymphocytes 11.5 % (21.0-51.0); %Monocytes 7.0 % (0.0-10.0); %Neutrophils 58.1 % (42.0-75.0); Hematocrit 33.3 % (42.0-52.0); Hemoglobin 11.1 g/dL (14.0-18.0); Mean Corpuscular Hemoglobin 29.7 pg (27.0-31.0); Mean Corpuscular Volume 89.0 fL (78.0-98.0); Platelet Count 231 10x3/uL (130-400); Red Blood Cell (RBC) Count 3.74 mill/uL (4.70-6.10); White Blood Cell (WBC) Count 11.78 10x3/uL (4.8-10.8)
[2025-08-30] MEDS ORDERED: Acetaminophen 500 MG TAB ONE (16:10)
[2025-08-30 16:20] LABS: ALT (SGPT) 8 U/L (Less than 45); AST (SGOT) 24 U/L (11-34); Albumin 4.5 g/dL (3.1-4.5); Alkaline Phosphatase 86 U/L (40-110); Anion Gap 21 mmol/L (10-20); BUN (Urea Nitrogen) 25 mg/dL (8.4-25.7); Bilirubin, Total 0.4 mg/dL (0.3-1.2); Calc. Creatinine Clearance 0 mL/min (70-130); Calcium 10.3 mg/dL (7.8-10.44); Carbon Dioxide 29 mmol/L (23-31); Chloride 96 mmol/L (98-107); Globulin 4.2 g/dL (2.4-3.5); Glucose 132 mg/dL (83-110); Lipase 20 U/L (8-78); Magnesium 2.1 mg/dL (1.6-2.6); Potassium 4.5 mmol/L (3.5-5.1); Sodium 141 mmol/L (136-145)
[2025-08-30] MEDS ORDERED: Metoclopramide HCl 10 MG (2 mL) VIAL ONE (18:17)
[2025-08-30] MEDS ORDERED: diphenhydrAMINE 50 MG/ML VIAL ONE (18:17)
== END 2025-08-30 20:12 | disposition home or self-care (01) ==
LOC: ERS 14:21
DX: K52.9 Noninfective gastroenteritis and colitis, unspecified (principal); R60.0 Localized edema; E11.22 Type 2 diabetes mellitus with diabetic chronic kidney disease; I12.0 Hypertensive chronic kidney disease with stage 5 chronic kidney disease or end stage renal disease; N18.6 End stage renal disease; E78.00 Pure hypercholesterolemia, unspecified; Z99.2 Dependence on renal dialysis; Z79.899 Other long term (current) drug therapy; Z79.82 Long term (current) use of aspirin
CPT/HCPCS: 80053; 83690; 83735; 85025; 93005; J1200; J2405; J2765; 96365; 96375